=== PATIENT | male | born 1950 | race Caucasian/White ===

== ENCOUNTER 2023-10-23 19:57 | Inpatient (IN) | payer OTHER, SELFPAY ==
[2023-10-23] VITALS (13 sets, daily range): BP systolic 69–144; BP diastolic 22–82; PULSE 45–87; RESP 11–16; TEMP 36.5–36.7; O2SAT 93–98; BMI 33.4
--- NOTE | 2023-10-23 20:24 | ED.GENADULT ---
HPI - General Adult General Chief complaint: General Medical Stated complaint: PAIN ALL OVER WANTS TO BE TREATED FOR PAIN PER EMS Time Seen by Provider: 10/23/23 21:37 Source: patient Mode of arrival: EMS Limitations: no limitations History of Present Illness ED Provider: wilfredo HONG narrative: Patient is 72 years old with history of hypertension diabetes, IBS complaining of whole body ache for last 10 days having different joint pains was seen and admitted at [facility] for 5 days discharge went again to [facility] for same prescribed morphine tablets and discharge comes here as he was feeling dizzy and still having the pain feel more dizzy on standing up blood pressure on arrival was 69/39 with pulse rate of 50 patient denied any chest pain patient took her use blood pressure medication earlier today patient had detailed workup done at the other hospital no rash patient was given Dilaudid tramadol gabapentin in the hospital patient had JESUS when admitted to [facility] on 10/14 with creatinine of 3.93 when discharged on 10/18 creatinine was 1.2 Related Data Home Medications ?Medication ?Instructions ?Recorded ?Confirmed acetaminophen 500 mg tablet 1,000 mg PO Q6H PRN Pain 10/24/23 10/24/23 morphine 15 mg immediate release 15 mg PO Q6-8H PRN Pain 10/24/23 10/24/23 tablet tramadol 50 mg tablet 50 mg PO Q8H PRN Moderate Pain 10/24/23 10/24/23 (Scale Score 5-6) Allergies Allergy/AdvReac Type Severity Reaction Status Date / Time No Known Allergies Allergy Verified 10/23/23 20:27 Review of Systems Review of Systems: Yes all other systems are reviewed and are negative PMF Past Medical History Medical History Chronic diastolic heart failure PTSD (post-traumatic stress disorder) Coronary artery disease Diabetes mellitus Hypertension Irritable bowel syndrome Social History Social History Household Members: None Housing: Apartment Do you presently have visiting nurse or other home services: Yes ([facility] weekly) Patient Tobacco Use Status: Former Tobacco user Tobacco use type: Cigarette Physical Exam ED Vital Signs: Vital Signs - 24 hr 10/23/23 20:21 10/23/23 21:01 10/23/23 21:06 Temperature 98.1 F Pulse Rate 50 48 L Respiratory Rate 16 12 Blood Pressure 69/39 L 94/41 L 100/46 L Pulse Oximetry 94 96 Oxygen Delivery Method Room Air Room Air 10/23/23 21:08 10/23/23 21:23 10/23/23 21:29 Temperature 97.9 F Pulse Rate Respiratory Rate Blood Pressure 84/62 L 96/53 L Pulse Oximetry Oxygen Delivery Method 10/23/23 21:37 10/23/23 21:38 10/23/23 22:21 Temperature Pulse Rate 48 L 71 Respiratory Rate Blood Pressure 89/43 L 78/22 L 95/38 L Pulse Oximetry Oxygen Delivery Method 10/23/23 22:37 10/23/23 22:55 10/23/23 23:14 Temperature 97.7 F Pulse Rate 45 L 49 L Respiratory Rate 11 L 13 Blood Pressure 93/46 L 99/48 L 113/47 L Pulse Oximetry 93 96 Oxygen Delivery Method Room Air Room Air 10/24/23 00:08 Temperature Pulse Rate 48 L Respiratory Rate 12 Blood Pressure 113/48 L Pulse Oximetry 100 Oxygen Delivery Method Room Air BMI result Body Mass Index 33.4 Appearance: Alert. Oriented X3. No acute distress. Eyes: No pallor ENT: Pharynx normal. Oral Mucosa moist Neck: Normal inspection. Neck supple. CVS: Sinus bradycardia Pulses normal. Respiratory: No respiratory distress. Equal air entry bilateral, no wheezing/rales/rhonchi Abdomen: Soft and nontender. Bowel sounds are present, no mass palpable, no CVA tenderness Skin: Skin warm and dry. Normal skin color. Normal skin turgor. Extremities: No lower extremity edema. No calf tenderness no joint swelling Neuro: Oriented X 3. No motor deficit. No sensory deficit.No cerebellar signs , cranial nerves II-XII intact Course Course Course Narrative: This is an RME done by JOVANI Fraga: Additional HPI, ROS, PE not included below will be deferred to primary provider. 73 yo male with pmh osteoporosis presenting with chronic pain to back, hips, shoulders. Was recently seen at [facility] and discharged with no new findings, returns with continued pain. Reports lutz helped him. They gave him dilauded, gabapentin, morphine and other pain meds. Appearance: Alert.? Oriented X3.? No acute cardiopulmonary distress distress.? Head: Normocephalic, atraumatic, no step-offs or deformities Neck: Normal inspection.? Neck supple.? CVS: Pulses normal.? Respiratory: No respiratory distress.? Abdomen: Soft and nontender.? Skin: ? Normal skin color. Extremities: global weakness Back: No midline tenderness, no C-spine tenderness, full range of motion, No CVA tenderness bilaterally Neuro: Oriented X 3.? No motor deficit.? No sensory deficit. Medications Administered Generic Name Dose Route Start Last Admin Trade Name Freq PRN Reason Stop Dose Admin Hydromorphone HCl 1 mg 10/24/23 05:31 10/24/23 05:57 Hydromorphone Hcl 2 Mg Tablet PO 1 mg Q6H PRN Administration Pain, Severe (Pain Scale 7-10) Discontinued Medications Generic Name Dose Route Start Last Admin Trade Name Freq PRN Reason Stop Dose Admin Sodium Chloride 1,000 mls @ 999 mls/hr 10/23/23 21:37 10/23/23 22:55 Ns IV 10/23/23 22:37 Infused .Q1H1M ONE Infusion Sodium Chloride 1,000 mls @ 999 mls/hr 10/23/23 22:09 10/23/23 23:55 Ns IV 10/23/23 23:09 Infused .Q1H1M ONE Infusion Sodium Zirconium Cyclosilicate 10 gm 10/24/23 02:01 10/24/23 02:53 Sodium Zirconium Cyclosilicate 10 Gm Powd.Pack PO 10/24/23 02:02 10 gm ONCE ONE Administration Medical Decision Making Medical Decision Making [facility] Narrative: Patient with prerenal azotemia with elevated creatinine level admitted [facility] on 10/14 for diarrhea with JESUS comes here with feeling weak with body pain on arrival patient's creatinine was 2.83. Patient says that he does not have any diarrhea anymore and taking enough fluids patient was hypotensive on arrival took his antihypertensive medications furosemide 40 mg daily Lab Data [facility] Lab Attestation statement: I reviewed the patient's lab results. 10/23/23 20:53 10/23/23 20:47 Labs: Lab Results 10/23/23 10/23/23 10/23/23 Range/Units 20:36 20:47 20:52 WBC (4.8-10.8) X10*3/uL RBC (4.60-5.80) X10*6/uL Hgb (14.0-18.0) g/dl Hct (42.0-52.0) % MCV (80.0-98.0) fL MCH (27.0-33.0) pg MCHC (31.0-36.0) g/dl RDW (11.0-16.0) % Plt Count (160-400) X10*3/uL MPV (9.4-12.4) fL Immature Gran % (Auto) (0.0-0.4) % Neut % (Auto) (45-73) % Lymph % (Auto) (20-40) % [place] % (Auto) (2-11) % Eos % (Auto) (0-4) % Baso % (Auto) (0-2) % Lymph # (Auto) (1.2-4.9) X10*3/uL [place] # (Auto) (0.1-1.2) X10*3/uL Eos # (Auto) (0.0-0.4) X10*3/uL Baso # (Auto) (0.0-0.2) X10*3/uL Abs Immat Gran (auto) (0.00-0.03) X10*3/uL Absolute Neuts (auto) (2.0-8.3) x10*3/uL Absolute Nucleated RBC (0.0-0.012) X10*3/uL Nucleated RBC % (auto) (0.0-0.2) /100WBC ESR (0-15) MM/HR Hold Purple Top SEE NOTE PT (11.1-13.3) SEC INR (0.9-1.1) Sodium 137 (135-145) mmol/L Potassium 5.6 H (3.3-5.1) mmol/L Chloride 102 (96-108) mmol/L Carbon Dioxide 26 (22-29) mmol/L Anion Gap 15 (12-20) BUN 31 H (9-16) mg/dL Creatinine 2.83 H (0.5-1.4) mg/dL Estim Creat Clear Calc 26.6 Estimated GFR 22 POC Glucose 135 H (60-115) mg/dL Random Glucose 136 H (60-115) mg/dL Lactic Acid 1.9 (0.5-2.0) mmol/L Calcium 9.6 (8.4-10.2) mg/dL Total Bilirubin 0.3 (0.0-1.0) mg/dL AST 14 (5-37) U/L ALT 11 (0-40) U/L Alkaline Phosphatase 60 (39-117) U/L Troponin I High Sens (<3.5-35.0) ng/L C-Reactive Protein < 0.10 (< or = 0.50) mg/dL Total Protein 6.2 L (6.5-8.0) g/dL Albumin 4.1 (3.5-5.0) g/dL TSH (0.32-4.0) uIU/mL Free T4 (0.71-1.85) ng/dL Urine Color Urine Appearance Urine pH (5.0-9.0) Ur Specific Coleman (1.005-1.025) Urine Protein (Neg-Trace) mg/dL Urine Glucose (UA) (Negative) mg/dL Urine Ketones (Negative) mg/dL Urine Blood (Negative) Urine Nitrite (Negative) Ur Leukocyte Esterase (Negative) 10/23/23 10/23/23 10/24/23 Range/Units 20:53 20:54 01:40 WBC 8.8 (4.8-10.8) X10*3/uL RBC 3.13 L (4.60-5.80) X10*6/uL Hgb 10.7 L (14.0-18.0) g/dl Hct 29.9 L (42.0-52.0) % MCV 95.5 (80.0-98.0) fL MCH 34.2 H (27.0-33.0) pg MCHC 35.8 (31.0-36.0) g/dl RDW 14.6 (11.0-16.0) % Plt Count 122 L (160-400) X10*3/uL MPV 10.8 (9.4-12.4) fL Immature Gran % (Auto) 1.1 H (0.0-0.4) % Neut % (Auto) 45.4 (45-73) % Lymph % (Auto) 36.6 (20-40) % [place] % (Auto) 8.6 (2-11) % Eos % (Auto) 7.2 H (0-4) % Baso % (Auto) 1.1 (0-2) % Lymph # (Auto) 3.2 (1.2-4.9) X10*3/uL [place] # (Auto) 0.8 (0.1-1.2) X10*3/uL Eos # (Auto) 0.6 H (0.0-0.4) X10*3/uL Baso # (Auto) 0.1 (0.0-0.2) X10*3/uL Abs Immat Gran (auto) 0.10 H (0.00-0.03) X10*3/uL Absolute Neuts (auto) 4.0 (2.0-8.3) x10*3/uL Absolute Nucleated RBC 0.000 (0.0-0.012) X10*3/uL Nucleated RBC % (auto) 0.0 (0.0-0.2) /100WBC ESR 6 (0-15) MM/HR Hold Purple Top PT 11.5 (11.1-13.3) SEC INR 0.9 (0.9-1.1) Sodium (135-145) mmol/L Potassium (3.3-5.1) mmol/L Chloride (96-108) mmol/L Carbon Dioxide (22-29) mmol/L Anion Gap (12-20) BUN (9-16) mg/dL Creatinine (0.5-1.4) mg/dL Estim Creat Clear Calc Estimated GFR POC Glucose (60-115) mg/dL Random Glucose (60-115) mg/dL Lactic Acid (0.5-2.0) mmol/L Calcium (8.4-10.2) mg/dL Total Bilirubin (0.0-1.0) mg/dL AST (5-37) U/L ALT (0-40) U/L Alkaline Phosphatase (39-117) U/L Troponin I High Sens 23.2 (<3.5-35.0) ng/L C-Reactive Protein (< or = 0.50) mg/dL Total Protein (6.5-8.0) g/dL Albumin (3.5-5.0) g/dL TSH 8.87 H (0.32-4.0) uIU/mL Free T4 0.70 L (0.71-1.85) ng/dL Urine Color Yellow Urine Appearance Clear Urine pH 5.5 (5.0-9.0) Ur Specific Coleman 1.010 (1.005-1.025) Urine Protein Negative (Neg-Trace) mg/dL Urine Glucose (UA) Negative (Negative) mg/dL Urine Ketones Negative (Negative) mg/dL Urine Blood Negative (Negative) Urine Nitrite Negative (Negative) Ur Leukocyte Esterase Negative (Negative) Critical Care Time Critical Care Time Critical Care Time: Yes Total Critical Care Time: 65 Attestation: The patient was critically ill with a high probability of imminent or life threatening deterioration. I spent greater than 70 ???minutes of discontinuous time evaluating the patient,delivering critical care at the bedside, discussing and evaluating pertinent data with consultants. Critical care time does not include time spent performing separately billable procedures or teaching. Total time spent performing critical care was 65???minutes. Discharge Plan Discharge Clinical Impression: Pre-syncope, Acute kidney injury Patient Disposition: Admitted As Inpatient Interventions: Admission Worksheet (ED) Last Done: 10/24/23 03:26 Discharge Date/Time: 10/24/23 03:30
--- NOTE | 2023-10-23 20:31 | ECG_ITS ---
Test Reason : HYPERTENSIVE Blood Pressure : / mmHG Vent. Rate : 048 BPM Atrial Rate : 048 BPM P-R Int : 160 ms QRS Dur : 096 ms QT Int : 394 ms P-R-T Axes : 093 029 140 degrees QTc Int : [address] & T wave abnormality, consider lateral ischemia Abnormal ECG No previous ECGs available Referred By: Earline Fraga Electronically Signed By:GORGE NOWAK
[2023-10-23 20:39] LABS: Glucose, Whole Blood 135 mg/dL (60-115)
[2023-10-23 21:01] LABS: MANUAL DIFF FLAG NO
[2023-10-23 21:03] LABS: Basophils Absolute Auto 0.1 X10*3/uL (0.0-0.2); Basophils Percent Auto 1.1 % (0-2); Eosinophils Absolute Auto 0.6 X10*3/uL (0.0-0.4); Eosinophils Percent Auto 7.2 % (0-4); Hematocrit 29.9 % (42.0-52.0); Hemoglobin 10.7 g/dl (14.0-18.0); Imm Gran Pct Auto 1.1 % (0.0-0.4); Lymphocytes Absolute Auto 3.2 X10*3/uL (1.2-4.9); Lymphocytes Percent Auto 36.6 % (20-40); Mean Corpuscular HGB Conc 35.8 g/dl (31.0-36.0); Mean Corpuscular Hemoglobin 34.2 pg (27.0-33.0); Mean Corpuscular Volume 95.5 fL (80.0-98.0); Mean Platelet Volume 10.8 fL (9.4-12.4); Monocytes Absolute Auto 0.8 X10*3/uL (0.1-1.2); Monocytes Percent Auto 8.6 % (2-11); Neutrophils Percent Auto 45.4 % (45-73); Platelet Count 122 X10*3/uL (160-400); Red Blood Count 3.13 X10*6/uL (4.60-5.80); Red Cell Distribution Width 14.6 % (11.0-16.0); White Blood Count 8.8 X10*3/uL (4.8-10.8)
--- NOTE | 2023-10-23 21:09 | PC.NURSE ---
pt is axox4 brought to ed19 from for low bp read. pt denies cp/sob/n/v/d/dizziness/DANIELS/blurry vision. pt is sinus shilpi on monitor at 48 bpm. ekg obtained. multiple attempts for iv/lab; 20G iv established to R. hands. labs drawn and sent to lab, awaiting results at this time. bp 100/46. MD aware. neuros intact. no facial droop/focal deficits noted. call amaya placed within reach pt watching tv at this time. pt reports he is here as he has 10/10 pain all over his body and joints. was seen at [facility] and given po morphine, states he took one today along with tylenol and tramadol without relief.
[2023-10-23 21:18] LABS: INTERNATIONAL NORM RATIO 0.9 (0.9-1.1); Prothrombin Time 11.5 SEC (11.1-13.3)
[2023-10-23 21:22] LABS: Troponin-I High Sensitivity 23.2 ng/L (<3.5-35.0)
[2023-10-23 21:24] LABS: Lactic Acid 1.9 mmol/L (0.5-2.0)
[2023-10-23 21:24] LABS: Anion Gap 15 (12-20)
[2023-10-23 21:29] LABS: Alanine Aminotransferase 11 U/L (0-40); Albumin Level 4.1 g/dL (3.5-5.0); Alkaline Phosphatase 60 U/L (39-117); Aspartate Amino Transferase 14 U/L (5-37); Bilirubin Total 0.3 mg/dL (0.0-1.0); Blood Urea Nitrogen 31 mg/dL (9-16); Calcium 9.6 mg/dL (8.4-10.2); Carbon Dioxide 26 mmol/L (22-29); Chloride 102 mmol/L (96-108); Creatinine Clr Calc Pharmacy 26.6; Estimated Glomerular Filt Rate 22; Glucose Random 136 mg/dL (60-115); Potassium 5.6 mmol/L (3.3-5.1); Sodium 137 mmol/L (135-145); Total Protein 6.2 g/dL (6.5-8.0)
--- NOTE | 2023-10-23 21:30 | PC.NURSE ---
pt is axox4 speaking full clear sentences. pct attempt to obtain orthostatic vitals and pt became dizzy, +ortho from supine to sitting, pt unable to stand d/t sx. pt helped back into stretcher and placed in trendelenberg position. MD Dr. Ramires made aware. ivf hung on pressure bag. bp improved to 105/46. pt appears drowsy however following commands appropriately. pt stated my bed time is around [id number] thats why im sleepy. at bedside.
[2023-10-23] MEDS: 0.9 % Sodium Chloride 1,000 ML 999 ML IV ×2 (21:35→22:19)
[2023-10-23 21:36] LABS: TSH reflex Free T4 8.87 uIU/mL (0.32-4.0)
--- NOTE | 2023-10-23 22:19 | PC.NURSE ---
2nd ivf bag hung per mar. otherwise no changes to previous assessment by this RN.
[2023-10-23 23:17] LABS: C Reactive Protein < 0.10 mg/dL (< or = 0.50)
[2023-10-23 23:45] LABS: Erythrocyte Sedimentation Rate 6 MM/HR (0-15)
[2023-10-24] VITALS (8 sets, daily range): BP systolic 113–184; BP diastolic 44–74; PULSE 48–63; RESP 12–20; TEMP 36.1–36.4; O2SAT 95–100; BMI 37.3
--- NOTE | 2023-10-24 00:18 | MHC.EDTECH ---
This tech helped Pt stand while trying to use the urinal and Pt states he cannot go at this time even though he feels the urge. RN aware. Pt requesting food and water. Pt offered a turkey or sunbutter sandwich and he declined. Declined something to drink as well. Call amaya within reach.
--- NOTE | 2023-10-24 01:05 | PC.NURSE ---
pt previously attempted to urinate at bedside with urinal and unable to. pt stated he feels the urge however cannot pee. bladder scan showed 596 mL urine. pt refused any catherization and stated he will reattMD rich aware and in agreement. at this time this RN attending to another pt in the [place] and pt started screaming you guys wanted me to pee and nicole peed so why cant you take this fucking urine away. pt reassured and attempted to redirect however pt continued to yell asking for the urine to be taken out of room and bedside table to be cleared of food pt was given per request.
[2023-10-24 01:45] LABS: Appearance Urine Clear; Color Urine Yellow; Glucose Urine UA Negative (Negative); Leukocyte Esterase Urine Negative (Negative); Nitrite Urine Negative (Negative); PH 5.5 (5.0-9.0); Urine Blood Negative (Negative); Urine Ketones Negative (Negative); Urine Protein Negative (Neg-Trace)
--- NOTE | 2023-10-24 01:56 | P.HPHOSP_ITS ---
History of Present Illness Date of Service: 10/24/23 Chief Complaint: Dizziness This is a 73-year-old male with pertinent history of insulin-dependent diabetes mellitus, congestive heart failure with preserved ejection fraction, coronary artery disease, hypertension, mood disorder, BPH who presents to the emergency department for evaluation of generalized body ache and dizziness. Patient was recently admitted at [facility] for JESUS and discharged on 10/18 with a creatinine of 1.2 JESUS was due to chronic diarrhea in the setting of IBS. Patient states that since being discharged he continued to have loose stools on and off which stopped 1 day prior to presentation. He has been having poor p.o. intake. Also complains of generalized body ache with sore neck, shoulders, arms, feet and knees. Patient states on the day of presentation he felt dizzy when he stood up and felt like he was going to pass out. No fever, chills, chest discomfort, palpitations, shortness of breath, abdominal pain, changes in urinary or bowel habits. In the the emergency department, creatinine found to be elevated. Patient initially presented with blood pressure 69/39 which improved with IV fluids. Review of Systems 2 Constitutional: Constitutional: Reports fatigue, Reports malaise, Reports poor appetite and Reports weakness ENT: Reports dizziness Cardiovascular: Cardiovascular: Reports no additional cardiovascular complaints Respiratory: Respiratory: Reports no additional respiratory complaints Gastrointestinal: Gastrointestinal: Reports no additional gastrointestinal complaints Genitourinary: Genitourinary: Reports no additional male genitourinary complaints Neurologic: Reports dizziness and Reports weakness Endocrine: Endocrine: Reports fatigue [facility] Medical History Chronic diastolic heart failure PTSD (post-traumatic stress disorder) Coronary artery disease Diabetes mellitus Hypertension Irritable bowel syndrome Pertinent family history: No family history of early CAD Social History Smoked in Last 30 Days: No Use of substances other than those prescribed or required for medical reasons: No Advance Directives: No Advance Directives Information Provided: No Do you have a plan to hurt others: No Plan Meds Allergies Allergy/AdvReac Type Severity Reaction Status Date / Time No Known Allergies Allergy Verified 10/23/23 20:27 Active Medications: Current Medications Acetaminophen (Acetaminophen 325 Mg Tablet) 650 mg PO Q6H PRN PRN Reason: Pain, Mild (Pain Scale 1-3), fever or headache Melatonin (Melatonin 3 Mg Tablet) 6 mg PO BEDTIME PRN PRN Reason: Insomnia Sodium Chloride (0.9 % Sodium Chloride Flush 3 Ml Syringe) 3 ml IVFLUSH QSHIFT JACQUELIN Physical Exam 2 Vital Signs and Narrative: Vital Signs: Last Vital Signs Temp 97.7 F 10/23/23 23:14 Pulse 48 L 10/24/23 00:08 Resp 12 10/24/23 00:08 BP 113/48 L 10/24/23 00:08 Pulse Ox 100 10/24/23 00:08 O2 Del Method Room Air 10/24/23 00:08 BMI result Body Mass Index 33.4 Middle-aged male lying in bed in no distress Neck supple, no JVD Sinus bradycardia, S1-S2 heard Regular breath sounds bilaterally, no wheezing or crackles appreciated Abdomen soft nontender, no guarding, no rigidity Patient is awake, alert and oriented to self, place, time and person ; no focal motor deficit Psych: Normal mood No pedal edema Results Labs 10/23/23 20:53 10/23/23 20:47 Labs: Laboratory Results - last 24 hr 10/23/23 10/23/23 10/23/23 20:36 20:47 20:52 MCV MCH MCHC RDW Plt Count MPV Immature Gran % (Auto) Neut % (Auto) Lymph % (Auto) Grand % (Auto) Eos % (Auto) Baso % (Auto) Lymph # (Auto) Grand # (Auto) Eos # (Auto) Baso # (Auto) Abs Immat Gran (auto) Absolute Neuts (auto) Absolute Nucleated RBC Nucleated RBC % (auto) ESR Hold Purple Top SEE NOTE PT INR Anion Gap 15 Estim Creat Clear Calc 26.6 Estimated GFR 22 POC Glucose 135 H Random Glucose 136 H Lactic Acid 1.9 Calcium 9.6 Total Bilirubin 0.3 AST 14 ALT 11 Alkaline Phosphatase 60 Troponin I High Sens C-Reactive Protein < 0.10 Total Protein 6.2 L Albumin 4.1 TSH Free T4 Urine Color Urine Appearance Urine pH Ur Specific Daphne Urine Protein Urine Glucose (UA) Urine Ketones Urine Blood Urine Nitrite Ur Leukocyte Esterase 10/23/23 10/23/23 10/24/23 20:53 20:54 01:40 MCV 95.5 MCH 34.2 H MCHC 35.8 RDW 14.6 Plt Count 122 L MPV 10.8 Immature Gran % (Auto) 1.1 H Neut % (Auto) 45.4 Lymph % (Auto) 36.6 Grand % (Auto) 8.6 Eos % (Auto) 7.2 H Baso % (Auto) 1.1 Lymph # (Auto) 3.2 Grand # (Auto) 0.8 Eos # (Auto) 0.6 H Baso # (Auto) 0.1 Abs Immat Gran (auto) 0.10 H Absolute Neuts (auto) 4.0 Absolute Nucleated RBC 0.000 Nucleated RBC % (auto) 0.0 ESR 6 Hold Purple Top PT 11.5 INR 0.9 Anion Gap Estim Creat Clear Calc Estimated GFR POC Glucose Random Glucose Lactic Acid Calcium Total Bilirubin AST ALT Alkaline Phosphatase Troponin I High Sens 23.2 C-Reactive Protein Total Protein Albumin TSH 8.87 H Free T4 0.70 L Urine Color Yellow Urine Appearance Clear Urine pH 5.5 Ur Specific Daphne 1.010 Urine Protein Negative Urine Glucose (UA) Negative Urine Ketones Negative Urine Blood Negative Urine Nitrite Negative Ur Leukocyte Esterase Negative Assessment and Plan (1) JESUS (acute kidney injury): Status: Acute (2) Pre-syncope: Status: Acute Plan This is a 73-year-old male with pertinent history of insulin-dependent diabetes mellitus, congestive heart failure with preserved ejection fraction, coronary artery disease, hypertension, mood disorder, BPH who presents to the emergency department for evaluation of generalized body ache and dizziness. #. JESUS, prerenal: Monitor creatinine and urine output with crystalloid resuscitation. Patient given 2 L IV normal saline in the ER. Avoid nephrotoxins. #. Hypotension due to intravascular volume depletion. Improved with IV crystalloids #. Orthostatic presyncope in the setting of above #. Hypokalemia in the setting of JESUS: Administered Lokelma. Closely monitor #. Insulin-dependent diabetes mellitus: Initiating Accu-Cheks with sliding scale insulin. Patient states he has not taken his long-acting insulin in 2 weeks #. Congestive heart failure with preserved ejection fraction: Hold Lasix the setting of JESUS #. Hypertension: Hold ARB in the setting of JESUS #. IBS with diarrhea: Leading to recurrent JESUS and hospitalization. Loperamide p.r.n. #. BPH: On Flomax #. Mood disorder: Continue home mood stabilizers #. Generalized weakness due to debility: Consulting Physical therapy to evaluate and treat. Also has generalized body ache. P.o. analgesia p.r.n. #. CAD: On aspirin and high-intensity statin Med rec pending DVT prophylaxis: Lovenox Full code Admit as inpatient and will require two night minimum hospital stay for monitoring of kidney function (as above), which is not possible in a lesser acute setting. Quality Stroke Does the patient have a stroke diagnosis?: No VTE Prior VTE?: No VTE Risk Level:: Medical - moderate - high VTE Device Contraindication: Treatment Not Indicated VTE Drug Contraindication: N/A - Med Ordered
[2023-10-24] MEDS: Sodium Zirconium Cyclosilicate 10 GM POWD.PACK PO (02:53)
--- NOTE | 2023-10-24 03:18 | PC.NURSE ---
this RN enter room to obtain vitals. pt stated I can't sleep in this room, there is too much noise and stuff going on out there. this RN apologized to pt and reassured pt will get a bed assignment to inpatient unit soon however unsure of timing. pt requested warm blanket and provided it to pt. this RN standing at room entrance pt started yelling close the curtain the lights bothering me. stated to patient will close the curtain as this RN mixing medication for patient. pt started yelling im sick of this shit close the fucking curtain and get out. rack carrier to bedside to speak to patient. Quality Improvement Analyst made aware of pt upset about not having a bed assignment. rack carrier provided eye mask to pt. pt calm at this time laying in stretcher watching tv. call amaya within reach.
[2023-10-24] MEDS: HYDROmorphone HCl 2 MG TABLET 1 MG PO ×3 (05:57→19:20)
[2023-10-24 07:44] LABS: MANUAL DIFF FLAG NO
--- NOTE | 2023-10-24 07:46 | PM.EVENT ---
Event Note Date of Service: 10/24/23 Event Note: This is a 73-year-old male with pertinent history of insulin-dependent diabetes mellitus, congestive heart failure with preserved ejection fraction, coronary artery disease, hypertension, mood disorder, BPH who presents to the emergency department for evaluation of generalized body ache and dizziness. Myalgias/joint pain Was discharged from [facility] 10/19/23 treated for similar symptoms had Lyme panel done, all neg normal cpk, crp no fever or leukocytosis will check RPP JESUS, prerenal ? r/t hypovolemia, hypotension Avoid nephrotoxins. continue fluids Hypotension hx of IBS-D but reported no recent diarrhea likely due to intravascular volume depletion. Improved with IV fluids Bradycardia low in the 40's, 50's no HB noted on EKG not on BB monitor on telemetry elevated TSH TSH 8.87, free T4 0.7 symptoms not likely related Orthostatic presyncope in the setting of above Hypokalemia in the setting of JESUS Administered Lokelma. Closely monitor Insulin-dependent diabetes mellitus Initiating Accu-Cheks with sliding scale insulin. Patient states he has not taken his long-acting insulin in 2 weeks Congestive heart failure with preserved ejection fraction Hold Lasix the setting of JESUS Hypertension Hold ARB in the setting of JESUS BPH On Flomax Mood disorder Continue home mood stabilizers Generalized weakness due to debility Consulting Physical therapy to evaluate and treat. Also has generalized body ache. P.o. analgesia p.r.n. CAD On aspirin hold statin due to myalgias DVT prophylaxis: Adrian attending Dr. Rudd Full code continue hospital stay for monitoring of kidney function (as above), which is not possible in a lesser acute set Time Spent With Patient Time: Total time managing care of this patient today ____ minutes.
[2023-10-24 07:58] LABS: Basophils Absolute Auto 0.1 X10*3/uL (0.0-0.2); Basophils Percent Auto 1.2 % (0-2); Eosinophils Absolute Auto 0.5 X10*3/uL (0.0-0.4); Eosinophils Percent Auto 7.1 % (0-4); Hematocrit 31.4 % (42.0-52.0); Hemoglobin 11.1 g/dl (14.0-18.0); Imm Gran Abs Auto 0.09 X10*3/uL (0.00-0.03); Imm Gran Pct Auto 1.3 % (0.0-0.4); Lymphocytes Absolute Auto 2.8 X10*3/uL (1.2-4.9); Lymphocytes Percent Auto 41.7 % (20-40); Mean Corpuscular HGB Conc 35.4 g/dl (31.0-36.0); Mean Corpuscular Hemoglobin 33.9 pg (27.0-33.0); Mean Platelet Volume 10.8 fL (9.4-12.4); Monocytes Absolute Auto 0.7 X10*3/uL (0.1-1.2); Monocytes Percent Auto 9.8 % (2-11); Neutrophils Absolute Auto 2.6 x10*3/uL (2.0-8.3); Neutrophils Percent Auto 38.9 % (45-73); Platelet Count 108 X10*3/uL (160-400); Red Blood Count 3.27 X10*6/uL (4.60-5.80); Red Cell Distribution Width 14.6 % (11.0-16.0); White Blood Count 6.7 X10*3/uL (4.8-10.8)
[2023-10-24 08:05] LABS: Glucose, Whole Blood 127 mg/dL (60-115)
[2023-10-24 08:12] LABS: Anion Gap 12 (12-20); Blood Urea Nitrogen 28 mg/dL (9-16); Calcium 8.9 mg/dL (8.4-10.2); Carbon Dioxide 28 mmol/L (22-29); Chloride 107 mmol/L (96-108); Creatinine Clr Calc Pharmacy 40.6; Estimated Glomerular Filt Rate 34; Glucose Random 130 mg/dL (60-115); Potassium 4.9 mmol/L (3.3-5.1); Sodium 142 mmol/L (135-145)
[2023-10-24] MEDS: Enoxaparin Sodium 40 MG/0.4 ML SYRINGE SUBCUT (08:37)
[2023-10-24] MEDS: 0.9 % Sodium Chloride Flush 3 ML SYRINGE IVFLUSH ×2 (08:38→21:20)
[2023-10-24] MEDS: traMADoL HCL 50 MG TABLET PO ×3 (08:39→21:18)
--- NOTE | 2023-10-24 10:12 | PHA.MEDREC ---
Addendum entered by Raya Lambert 10/24/23 12:57: Patient stated he has not had his insulin in 2 weeks and does not know why his pharmacy has not sent it to him (gets it delivered). Original Note: Pharmacy Consult ? Medication Reconciliation Pharmacy has completed the medication reconciliation. [facility] with [facility]. He confirmed Lantus 60 units qam. [facility] Dival[facility]ex [facility] 500mg - 2 tablets at bedtime however patient states he takes a 500 and 250 at bedtime. Put on med rec what patient says he takes, hospitalist is aware. Confirmed the medications he got from previous hospital with [facility].
--- NOTE | 2023-10-24 11:09 | MHC.CM.PN ---
IMM 10/24/23 Pt. lives alone, has a weekly nurse visit, provided by DC to set up his meds, because he takes 26 meds. He said [facility], and that his apt. is badly in need of it. HCP is Tonya Pruett, she lives in [place]. PCP is: Oliver Wilson, and [facility] doctor is: Dr. Hernandez. For DME he has [facility] w/c, [facility]. He does not have transportation, has been in touch with [facility] to get rides for medical appts. DCP: TBD, will have PT eval (he declined it today). CM to follow and assist with DC planning.
[2023-10-24 12:14] LABS: Glucose, Whole Blood 165 mg/dL (60-115)
[2023-10-24] MEDS: Insulin Lispro 100 UNIT/ML 3 ML VIAL SUBCUT ×2 (12:24→21:22)
[2023-10-24] MEDS: Acetaminophen 325 MG TABLET 650 MG PO (13:58)
[2023-10-24] MEDS: 0.9 % Sodium Chloride 1,000 ML 100 ML IVCONT (14:52)
[2023-10-24 16:39] LABS: Glucose, Whole Blood 144 mg/dL (60-115)
[2023-10-24] MEDS: Melatonin 3 MG TABLET 6 MG PO (21:18)
[2023-10-24 21:32] LABS: Glucose, Whole Blood 169 mg/dL (60-115)
[2023-10-25] VITALS: BP 150/70; PULSE 68
[2023-10-25] MEDS: HYDROmorphone HCl 2 MG TABLET 1 MG PO ×4 (01:36→19:57)
[2023-10-25] MEDS: 0.9 % Sodium Chloride Flush 3 ML SYRINGE IVFLUSH ×2 (01:52→15:37)
[2023-10-25] MEDS: Zolpidem Tartrate 5 MG TABLET PO (01:55)
[2023-10-25] MEDS: traMADoL HCL 50 MG TABLET PO ×3 (04:27→16:33)
--- NOTE | 2023-10-25 06:05 | PC.NURSE ---
DR Boothe make aware patient refusing ivf, states he is drinking enough water.
[2023-10-25 06:42] LABS: MANUAL DIFF FLAG NO
[2023-10-25 06:59] LABS: Basophils Absolute Auto 0.1 X10*3/uL (0.0-0.2); Basophils Percent Auto 1.1 % (0-2); Eosinophils Absolute Auto 0.3 X10*3/uL (0.0-0.4); Eosinophils Percent Auto 5.3 % (0-4); Hematocrit 31.6 % (42.0-52.0); Hemoglobin 11.3 g/dl (14.0-18.0); Imm Gran Abs Auto 0.07 X10*3/uL (0.00-0.03); Imm Gran Pct Auto 1.1 % (0.0-0.4); Lymphocytes Absolute Auto 2.4 X10*3/uL (1.2-4.9); Lymphocytes Percent Auto 36.8 % (20-40); Mean Corpuscular HGB Conc 35.8 g/dl (31.0-36.0); Mean Corpuscular Hemoglobin 34.2 pg (27.0-33.0); Mean Corpuscular Volume 95.8 fL (80.0-98.0); Mean Platelet Volume 10.8 fL (9.4-12.4); Monocytes Absolute Auto 0.7 X10*3/uL (0.1-1.2); Monocytes Percent Auto 10.4 % (2-11); Neutrophils Absolute Auto 2.9 x10*3/uL (2.0-8.3); Neutrophils Percent Auto 45.3 % (45-73); Platelet Count 107 X10*3/uL (160-400); Red Cell Distribution Width 14.3 % (11.0-16.0); White Blood Count 6.5 X10*3/uL (4.8-10.8)
[2023-10-25 07:05] LABS: Anion Gap 13 (12-20); Blood Urea Nitrogen 17 mg/dL (9-16); Calcium 9.9 mg/dL (8.4-10.2); Carbon Dioxide 26 mmol/L (22-29); Chloride 107 mmol/L (96-108); Creatinine Clr Calc Pharmacy 58.1; Estimated Glomerular Filt Rate 51; Glucose Random 160 mg/dL (60-115); Sodium 141 mmol/L (135-145)
[2023-10-25 08:00] VITALS: BP 160/77; PULSE 82; RESP 17; TEMP 36.7; O2SAT 95
[2023-10-25] MEDS: ondansetron HCL 4 MG/2 ML VIAL IVPUSH (08:04)
[2023-10-25 08:15] LABS: Glucose, Whole Blood 149 mg/dL (60-115)
--- NOTE | 2023-10-25 09:09 | P.PNIM_ITS ---
Subjective Subjective Date of Service: 10/25/23 Review of Systems Follow up weakness, body pain and hypotension still with body pain,stated feeling confused some nausea Physical Exam 2 Vital Signs: Vital Signs: Last Vital Signs Temp 98.0 F 10/25/23 08:00 Pulse 82 10/25/23 08:00 Resp 17 10/25/23 08:00 BP 160/77 H 10/25/23 08:00 Pulse Ox 95 10/25/23 08:00 O2 Del Method Room Air 10/25/23 08:00 BMI result Body Mass Index 37.3 Appearing in no acute distress lung sounds are clear to auscultation heart regular rate rhythm, clear S1, S2 positive bowel sounds, abdomen is soft, nontender neuro patient is alert x3, no focal deficits Objective Data Active Medications Acetaminophen (Acetaminophen 325 Mg Tablet) 650 mg PO Q6H PRN PRN Reason: Pain, Mild (Pain Scale 1-3), fever or headache Last Admin: 10/24/23 13:58 Dose: 650 mg Documented By: DARRYN Calcium Carbonate (Calcium Carbonate 750 Mg Tab.Chew) 750 mg PO Q4H PRN PRN Reason: Heartburn Divalproex Sodium (Divalproex Sodium Er 250 Mg Tab.Er.24h) 250 mg PO BEDTIME JACQUELIN Divalproex Sodium (Divalproex Sodium Er 500 Mg Tab.Er.24h) 500 mg PO BEDTIME JACQUELIN Enoxaparin Sodium (Enoxaparin Sodium 40 Mg/0.4 Ml Syringe) 40 mg SUBCUT Q24H JACQUELIN Last Admin: 10/24/23 08:37 Dose: 40 mg Documented By: DARRYN Furosemide (Furosemide 40 Mg Tablet) 40 mg PO DAILY JACQUELIN; Protocol Gabapentin (Gabapentin 600 Mg Tablet) 900 mg PO TID [facility] Glucose (Glucose Gel 15 Gm Gel..Gram.) 15 gm PO Q15M PRN; Protocol PRN Reason: per Hypoglycemia Standing Ord. Hydromorphone HCl (Hydromorphone Hcl 2 Mg Tablet) 1 mg PO Q6H PRN PRN Reason: Pain, Severe (Pain Scale 7-10) Last Admin: 10/25/23 07:55 Dose: 1 mg Documented By: MARY Dextrose (D10) 250 mls @ 750 mls/hr IV Q15M PRN; Protocol PRN Reason: per Hypoglycemia Standing Ord. Sodium Chloride (Ns) 1,000 mls @ 100 mls/hr IVCONT .Q10H [facility] Last Admin: 10/25/23 01:53 Dose: Not Given Documented By: KENN Non-Admin Reason: Patient Refused Insulin Human Lispro (Insulin Lispro 100 Unit/Ml 3 Ml Vial) 0 unit SUBCUT QIDACHS [facility]; Protocol Last Admin: 10/24/23 21:22 Dose: 2 unit Documented By: KENN Comments: bs 169 Isosorbide Mononitrate (Isosorbide Mononitrate 30 Mg Tab.Er.24h) 30 mg PO DAILY [facility]; Protocol Loperamide HCl (Loperamide Hcl 2 Mg Capsule) 2 mg PO Q4H PRN PRN Reason: Diarrhea Magnesium Hydroxide (Milk Of Magnesia 30 Ml Oral.Susp) 30 ml PO DAILY PRN PRN Reason: Constipation Melatonin (Melatonin 3 Mg Tablet) 6 mg PO BEDTIME PRN PRN Reason: Insomnia Last Admin: 10/24/23 21:18 Dose: 6 mg Documented By: KENN Metoprolol Tartrate (Metoprolol Tartrate 25 Mg Tablet) 25 mg PO BID [facility]; Protocol Ondansetron HCl (Ondansetron Hcl 4 Mg/2 Ml Vial) 4 mg IVPUSH Q8H PRN PRN Reason: Nausea and Vomiting Last Admin: 10/25/23 08:04 Dose: 4 mg Documented By: MARY Oxybutynin Chloride (Oxybutynin Chloride 5 Mg Tablet) 5 mg PO BEDTIME [facility] Quetiapine Fumarate (Quetiapine Fumarate 100 Mg Tablet) 100 mg PO BEDTIME [facility] Sodium Chloride (0.9 % Sodium Chloride Flush 3 Ml Syringe) [facility] Last Admin: 10/25/23 01:52 Dose: 3 ml Documented By: KENN Tamsulosin HCl (Tamsulosin Hcl 0.4 Mg Capsule) 0.4 mg PO DAILY [facility] Tizanidine HCl (Tizanidine Hcl 4 Mg Tablet) 2 mg PO TID PRN PRN Reason: muscle spasms Tramadol HCl (Tramadol Hcl 50 Mg Tablet) 50 mg PO Q6H PRN PRN Reason: Pain, Moderate(Pain Scale 4-6) Last Admin: 10/25/23 04:27 Dose: 50 mg Documented By: KENN Tramadol HCl (Tramadol Hcl 50 Mg Tablet) 50 mg PO Q8H PRN PRN Reason: Moderate Pain (Scale Score 5-6) Zolpidem Tartrate (Zolpidem Tartrate 5 Mg Tablet) 5 mg PO BEDTIME PRN PRN Reason: Insomnia Last Admin: 10/25/23 01:55 Dose: 5 mg Documented By: KENN Labs 10/25/23 06:31 10/25/23 06:31 Labs: Laboratory Results - last 24 hr 10/24/23 10/24/23 10/24/23 07:15 12:10 16:33 MCV MCH MCHC RDW Plt Count MPV Immature Gran % (Auto) Neut % (Auto) Lymph % (Auto) [place] % (Auto) Eos % (Auto) Baso % (Auto) Lymph # (Auto) [place] # (Auto) Eos # (Auto) Baso # (Auto) Abs Immat Gran (auto) Absolute Neuts (auto) Absolute Nucleated RBC Nucleated RBC % (auto) Anion Gap Estim Creat Clear Calc Estimated GFR POC Glucose 165 H 144 H Random Glucose Calcium Total Creatine Kinase 162 10/24/23 10/25/23 10/25/23 21:17 06:31 08:10 MCV 95.8 MCH 34.2 H MCHC 35.8 RDW 14.3 Plt Count 107 L MPV 10.8 Immature Gran % (Auto) 1.1 H Neut % (Auto) 45.3 Lymph % (Auto) 36.8 [place] % (Auto) 10.4 Eos % (Auto) 5.3 H Baso % (Auto) 1.1 Lymph # (Auto) 2.4 [place] # (Auto) 0.7 Eos # (Auto) 0.3 Baso # (Auto) 0.1 Abs Immat Gran (auto) 0.07 H Absolute Neuts (auto) 2.9 Absolute Nucleated RBC 0.000 Nucleated RBC % (auto) 0.0 Anion Gap 13 Estim Creat Clear Calc 58.1 Estimated GFR 51 POC Glucose 169 H 149 H Random Glucose 160 H Calcium 9.9 D Total Creatine Kinase Microbiology Microbiology Results: Microbiology 10/23/23 20:52 Blood Culture - Preliminary Blood - Venous No growth after 24 hours. 10/23/23 20:46 Blood Culture - Preliminary Blood - Venous No growth after 24 hours. Assessment and Plan (1) JESUS (acute kidney injury): Status: Acute Plan This is a 73-year-old male with pertinent history of insulin-dependent diabetes mellitus, congestive heart failure with preserved ejection fraction, coronary artery disease, hypertension, mood disorder, BPH who presents to the emergency department for evaluation of generalized body ache and dizziness. Myalgias/joint pain Was [place] [facility] [place] treated for similar symptoms had Lyme panel done, all neg normal cpk, crp no fever or leukocytosis RPP negative JESUS, prerenal, creat trending down ? r/t hypovolemia, hypotension Avoid nephrotoxins. continue fluids Hypotension with hx of hypertension. Resolved hx of IBS-D but reported no recent diarrhea likely due to intravascular volume depletion and medications valsartan stopped Improved with IV fluids Bradycardia. improving low in the 40's, 50's initially no HB noted on EKG metoprolol held intitially and restarted at lower dose elevated TSH TSH 8.87, free T4 0.7 symptoms not likely related Orthostatic presyncope. Resolved in the setting of above Hypokalemia in the setting of JESUS Administered Lokelma. Closely monitor Insulin-dependent diabetes mellitus Initiating Accu-Cheks with sliding scale insulin. Patient states he has not taken his long-acting insulin in 2 weeks Congestive heart failure with preserved ejection fraction continue lasix BPH On Flomax Mood disorder Continue home mood stabilizers Generalized weakness due to debility Consulting Physical therapy to evaluate and treat. Also has generalized body ache. P.o. analgesia p.r.n. CAD On aspirin hold statin due to myalgias DVT prophylaxis: Lovenox attending Dr. Rudd Full code continue hospital stay for monitoring of kidney function (as above), which is not possible in a lesser acute set Quality Stroke Does the patient have a stroke diagnosis?: No VTE Prior VTE?: No VTE Risk Level:: Medical - moderate - high VTE Device Contraindication: Treatment Not Indicated VTE Drug Contraindication: N/A - Med Ordered
[2023-10-25] MEDS: Enoxaparin Sodium 40 MG/0.4 ML SYRINGE SUBCUT (09:32)
[2023-10-25] MEDS: Gabapentin 600 MG TABLET 900 MG PO ×3 (09:33→20:33)
[2023-10-25] MEDS: Isosorbide Mononitrate 30 MG TAB.ER.24H PO (09:33)
[2023-10-25] MEDS: Metoprolol Tartrate 25 MG TABLET PO ×2 (09:33→20:37)
[2023-10-25] MEDS: Furosemide 40 MG TABLET PO (09:33)
[2023-10-25] MEDS: Tamsulosin HCL 0.4 MG CAPSULE PO (09:33)
[2023-10-25] MEDS: TiZANidine HCL 4 MG TABLET 2 MG PO ×2 (09:36→17:34)
[2023-10-25] MEDS: Acetaminophen 325 MG TABLET 650 MG PO ×2 (09:36→18:31)
[2023-10-25 10:24] LABS: Adenovirus PCR Not Detected (Not Detect.); Bordetella parapertussis PCR Not Detected (Not Detect.); Bordetella pertussis PCR Not Detected (Not Detect.); Chlamydia pneumoniae PCR Not Detected (Not Detect.); Coronavirus 229E PCR Not Detected (Not Detect.); Coronavirus HKU1 PCR Not Detected (Not Detect.); Coronavirus NL63 PCR Not Detected (Not Detect.); Coronavirus OC43 PCR Not Detected (Not Detect.); Human metapneumovirus PCR Not Detected (Not Detect.); Influenza A PCR Not Detected (Not Detect.); Influenza B PCR Not Detected (Not Detect.); Mycoplasma pneumoniae PCR Not Detected (Not Detect.); Parainfluenza 1 PCR Not Detected (Not Detect.); Parainfluenza 2 PCR Not Detected (Not Detect.); Parainfluenza 3 PCR Not Detected (Not Detect.); Parainfluenza 4 PCR Not Detected (Not Detect.); RSV PCR Not Detected (Not Detect.); Rhino/Enterovirus PCR Not Detected (Not Detect.); SARS-CoV-2 PCR Not Detected (Not Detect.)
[2023-10-25] MEDS: Famotidine/PF 20 MG/2 ML VIAL IVPUSH (11:51)
[2023-10-25 11:55] VITALS: BP 132/56; PULSE 65; RESP 18; TEMP 36.4; O2SAT 96
[2023-10-25 12:01] LABS: Glucose, Whole Blood 149 mg/dL (60-115)
[2023-10-25 15:38] VITALS: BP 145/72; PULSE 67; RESP 17; TEMP 36.3; O2SAT 96
[2023-10-25 16:40] LABS: Glucose, Whole Blood 157 mg/dL (60-115)
[2023-10-25] MEDS: Insulin Lispro 100 UNIT/ML 3 ML VIAL SUBCUT ×2 (17:33→20:42)
[2023-10-25] MEDS: Divalproex Sodium ER 500 MG TAB.ER.24H PO (20:33)
[2023-10-25] MEDS: oxyBUTYnin chloride 5 MG TABLET PO (20:33)
[2023-10-25] MEDS: QUEtiapine Fumarate 100 MG TABLET PO (20:34)
[2023-10-25] MEDS: Divalproex Sodium ER 250 MG TAB.ER.24H PO (20:34)
[2023-10-25 20:37] VITALS: BP 163/60; PULSE 68
[2023-10-25 20:49] LABS: Glucose, Whole Blood 158 mg/dL (60-115)
[2023-10-25 20:58] VITALS: BP 163/70; PULSE 59; RESP 20; TEMP 37; O2SAT 92
[2023-10-26] MEDS: traMADoL HCL 50 MG TABLET PO ×2 (03:03→09:02)
--- NOTE | 2023-10-26 04:33 | PC.NURSE ---
Non compliant with care.Forgetful with intermitted confusion observed this shift. Several redirection and orientation given with effect. Fall precaution reinforced. Verbalized understanding.
[2023-10-26] MEDS: Acetaminophen 325 MG TABLET 650 MG PO (06:11)
[2023-10-26 07:22] LABS: Glucose, Whole Blood 182 mg/dL (60-115)
[2023-10-26 07:39] VITALS: BP 156/70; PULSE 69; RESP 18; TEMP 36.8; O2SAT 95
[2023-10-26] MEDS: Gabapentin 600 MG TABLET 900 MG PO (07:55)
[2023-10-26] MEDS: Tamsulosin HCL 0.4 MG CAPSULE PO (07:55)
[2023-10-26] MEDS: HYDROmorphone HCl 2 MG TABLET 1 MG PO ×2 (07:55→13:31)
[2023-10-26] MEDS: Metoprolol Tartrate 25 MG TABLET PO (07:56)
[2023-10-26] MEDS: Insulin Lispro 100 UNIT/ML 3 ML VIAL SUBCUT (07:56)
[2023-10-26] MEDS: Famotidine/PF 20 MG/2 ML VIAL IVPUSH (07:56)
[2023-10-26] MEDS: Furosemide 40 MG TABLET PO (07:56)
[2023-10-26] MEDS: Enoxaparin Sodium 40 MG/0.4 ML SYRINGE SUBCUT (07:56)
[2023-10-26] MEDS: Isosorbide Mononitrate 30 MG TAB.ER.24H PO (07:56)
[2023-10-26] MEDS: 0.9 % Sodium Chloride Flush 3 ML SYRINGE IVFLUSH (08:15)
[2023-10-26 08:41] VITALS: PULSE 83; O2SAT 91
--- NOTE | 2023-10-26 10:44 | MHC.CM.PN ---
CM met with Patient at bedside to discuss dc planning and PT's recommendation for home PT; Brandon has declined home PT, stating he has [facility] RN that visits weekly to assist him with med management and that is all he needs/wants. INTERNAL AUDIT MANAGER/Kerry has been made aware. Patient will dc to home ([address] [place] [facility] [facility]) today at 2PM, via [facility]. Last IMM addressed on 10/24/2023.
--- NOTE | 2023-10-26 11:04 | P.DS_ITS ---
DS: Providers Provider Date of Service: 10/26/23 Date of admission: 10/24/23 01:58 Primary care physician: Unknown Physician DS: Diagnosis Discharge Diagnosis (1) JESUS (acute kidney injury): Status: Acute DS: Summary Hospital Course Hospital Course: This is a 73-year-old male with pertinent history of insulin-dependent diabetes mellitus, congestive heart failure with preserved ejection fraction, coronary artery disease, hypertension, mood disorder, BPH who presents to the emergency department for evaluation of generalized body ache and dizziness. Patient was recently admitted at [facility] for JESUS and discharged on 10/18 with a creatinine of 1.2 JESUS was due to chronic diarrhea in the setting of IBS. Patient states that since being discharged he continued to have loose stools on and off which stopped 1 day prior to presentation. He has been having poor p.o. intake. Also complains of generalized body ache with sore neck, shoulders, arms, feet and knees. Patient states on the day of presentation he felt dizzy when he stood up and felt like he was going to pass out. No fever, chills, chest discomfort, palpitations, shortness of breath, abdominal pain, changes in urinary or bowel habits. In the the emergency department, creatinine found to be elevated. Patient initially presented with blood pressure 69/39 which improved with IV fluids. 73-year-old man treated for hypotension with presyncope. Patient was noted to have systolic blood pressure as low as 60 with bradycardia, heart rate in the 40s and 50s initially. No heart block noted on EKG. His metoprolol was held. His blood pressure did improve with some IV fluids and stopping of his antihypertensive medications. He does have a history of IBS D and was thought initially that this was related to hypovolemia from recent diarrhea but patient reported that he had not had any diarrhea. He was recently treated at [facility] as well for the same symptoms. He also reported some myalgias and joint pain. At [place] he did have a Lyme panel done which was negative. At [facility] he had a normal CPK and CRP with no fever leukocytosis and RPP was negative. Patient's symptoms were likely related to hypotension. His metoprolol was restarted at a lower dose of 25 mg twice daily, his valsartan was also started on lower dose 80 mg daily and his furosemide was restarted at the same home dose. His JESUS resolved with IV fluids and may have been also related to hypotension, poor perfusion. Patient was seen and evaluated by Physical therapy recommended for home PT. Plan is for patient be discharged home, he reported he is already set up with the [place] visiting nurse. Elevated TSH. TSH 8.87, free T4 0.7. Symptoms were not likely related but he should have a repeat TSH in 3 months Orthostatic hypotension likely related to hypotension, low volume possibly. Resolved with IV fluids Hypokalemia in the setting of JESUS. Administered Lokelma and resolved Diabetes mellitus. Continue home medications Congestive heart failure with preserved ejection fraction. Continue Lasix BPH. Continue Flomax Mental health. Continue home with stabilizers Coronary artery disease. Continue aspirin, statin was held due to myalgias but may continue at home Time Attestation Discharge Coordination Time (in mins): 32 Quality: Safe Use of Opioids Does Pt have an Active Cancer Diagnosis on the Problem List?: No Quality: Stroke Does the patient have a stroke diagnosis?: No Physical Exam Vital Signs: Vital Signs: Last Vital Signs Temp 98.3 F 10/26/23 07:39 Pulse 83 10/26/23 08:41 Resp 18 10/26/23 07:39 BP 156/70 H 10/26/23 07:39 Pulse Ox 91 L 10/26/23 08:41 O2 Del Method Room Air 10/26/23 07:39 BMI result Body Mass Index 37.3 Appearing in no acute distress head is normocephalic atraumatic eyes pupils are PERRLA sclera is anicteric mouth throat mucous membranes are intact and moist neck is supple no lymphadenopathy, no JVD noted lung sounds are clear to auscultation heart regular rate rhythm, clear S1, S2 positive bowel sounds, abdomen is soft, nontender neuro patient is alert x3, no focal deficits DS: Data Data Completed and Pending Labs on day of discharge: Laboratory Results - last 24 hr 10/25/23 10/25/23 10/25/23 11:49 16:35 20:38 POC Glucose 149 H 157 H 158 H 10/26/23 07:09 POC Glucose 182 H Preliminary micro results at discharge 10/23/23 20:52 Blood Culture - Preliminary Blood - Venous No growth after 48 hours. 10/23/23 20:46 Blood Culture - Preliminary Blood - Venous No growth after 48 hours. Discharge Plan Discharge Anticipated Discharge Date/Time: 10/26/23 10:49 Patient Disposition: Home, Self-Care Discharge Diagnosis: Myalgia, joint pain JESUS Hypotension Bradycardia [facility]errals: [facility] for med management [Other] - 1 Week Discharge Medications: New valsartan 80 mg Tablet 80 mg PO DAILY Qty: 90 0RF Protocol: Hold for SBP< HOLD for SBP < : 90 metoprolol tartrate 25 mg Tablet 25 mg PO BID Qty: 60 0RF Protocol: Hold for SBP/HR < HOLD for SBP < : 90 HOLD for HR < : 60 Continued tramadol 50 mg Tablet 50 mg PO Q8H PRN (Reason: Moderate Pain (Scale Score 5-6)) acetaminophen 500 mg Tablet 1,000 mg PO Q6H PRN (Reason: Pain) morphine 15 mg Tablet 15 mg PO Q6-8H PRN (Reason: Pain) furosemide 40 mg Tablet 40 mg PO DAILY metformin 500 mg Tablet 500 mg PO BID atorvastatin 80 mg Tablet 40 mg PO DAILY gabapentin 600 mg Tablet 900 mg PO TID Rx Instructions: 1 and 1/2 tablets TID tizanidine 2 mg Tablet 2 mg PO TID PRN (Reason: muscle spasms) isosorbide mononitrate 30 mg Tablet Extended Release 24 Hr 30 mg PO DAILY quetiapine 100 mg Tablet 100 mg PO BEDTIME tamsulosin 0.4 mg Capsule 0.4 mg PO DAILY oxybutynin chloride 5 mg Tablet 5 mg PO BEDTIME naproxen 500 mg Tablet 500 mg PO BID PRN (Reason: Pain) insulin glargine [Lantus Solostar U-100 Insulin] 100 unit/mL (3 mL) Insulin Pen 60 unit SUBCUT QAM melatonin 3 mg Capsule 3 mg PO BEDTIME divalproex 500 mg Tablet Extended Release 24 Hr 500 mg PO BEDTIME divalproex 250 mg Tablet Extended Release 24 Hr 250 mg PO BEDTIME Discontinued metoprolol tartrate 50 mg Tablet 50 mg PO BID valsartan 160 mg Tablet 160 mg PO DAILY Discharge Orders: Discharge Order (Routine); Ordered 10/26/23 Ordered By: Kerry Sanders Diet: Advance to usual diet Activity on Discharge: As tolerated Stand Alone Forms: Patient Portal Discharge page Print Language: Wolof Care Plan Goals: Your medications for your blood pressure and heart rate have changed. Metoprolol has been decreased to 25 mg twice daily, valsartan has been decreased to 80 mg daily Monitor blood pressures daily at home Health Concerns: Myalgia, joint pain JESUS Hypotension Bradycardia Plan of Treatment: Follow-up with primary care provider as needed Take all medications as prescribed Assessment: See discharge summary
[2023-10-26 11:16] LABS: Glucose, Whole Blood 143 mg/dL (60-115)
[2023-10-26 11:42] VITALS: BP 130/63
[2023-10-26] MEDS: Valsartan 80 MG TABLET PO (11:42)
--- NOTE | 2023-10-26 16:27 | P.CDIM_ITS ---
PROVIDER RESPONSE TEXT: To clarify, the appropriate diagnosis supported by the clinical indicators: Obesity Due to excess calories QUERY TEXT: PHYSICIAN'S DOCUMENTATION REQUEST Date of Query: 10/26/2023 08:15 AM EDT Patient Name: Brandon Baumann Admit Date: 10/24/2023 Dear Kerry Sanders, A review of the medical record indicates additional documentation may be needed. Please review below and update the documentation accordingly. Clinical Indicators: Height: 5ft 8in Weight: 111.4kg BMI: 37.3 Other Clinical Notes Supporting Significance of the BMI: Nursing notes Height and Weight: Obese class II If possible, please provide an associated diagnosis related to the abnormal BMI, such as: Overweight Obesity Due to excess calories Obesity Drug induced Obesity Due to other cause Specify the other cause Other (explain) Clinically unable to determine (explain) Thank you, Gia Ovalle, CCS, CDIS Use of terms such as suspected, likely, concern for, or probable (associated with a specific diagnosi s that is being evaluated, monitored, or treated as if it exists) are acceptable and can be coded in the inpatient se tting, when documented at the time of discharge. Please use your independent medical judgment in providing your response. THIS QUERY IS PART OF THE PERMANENT MEDICAL RECORD
== END 2023-10-26 15:00 | disposition home or self-care (01) | DRG 312 ==
LOC: HO.ED 21:37 → HO.EDOVER 10-24 01:59 → HO.IMC 10-24 03:08
PROVIDERS: Emergency Medicine; Physician Assistant; Admitting Provider Student in an Organized Health Care Education/Training Program; Emergency Provider Internal Medicine; PCP Internal Medicine; Visit Provider Nurse Practitioner Acute Care
DX: I95.1 Orthostatic hypotension (principal); N17.9 Acute kidney failure, unspecified; I50.32 Chronic diastolic (congestive) heart failure; I25.10 Atherosclerotic heart disease of native coronary artery without angina pectoris; E87.6 Hypokalemia; K58.0 Irritable bowel syndrome with diarrhea; N40.0 Benign prostatic hyperplasia without lower urinary tract symptoms; R00.1 Bradycardia, unspecified; F43.10 Post-traumatic stress disorder, unspecified; I11.0 Hypertensive heart disease with heart failure; E66.09 Other obesity due to excess calories; Z20.822 Contact with and (suspected) exposure to COVID-19; Z87.891 Personal history of nicotine dependence; Z68.37 Body mass index [BMI] 37.0-37.9, adult; Z79.4 Long term (current) use of insulin; Z79.84 Long term (current) use of oral hypoglycemic drugs; Z79.899 Other long term (current) drug therapy
CPT/HCPCS: 36415; 80048; 80053; 81003; 82550; 82947; 83605; 84439; 84443; 84484; 85025; 85610; 85652; 86140; 87040; 87633; 93005; 97161; 99285; J1650; J2405

== ENCOUNTER → 2023-10-23 20:31 | Outpatient (BNV) | payer MEDICARE, SELFPAY | PROVIDERS: Admitting Provider Student in an Organized Health Care Education/Training Program; Emergency Provider Internal Medicine; Visit Provider Internal Medicine | DX: I10 Essential (primary) hypertension (principal) | CPT/HCPCS: 93010 ==

== ENCOUNTER → 2023-10-24 01:58 | Outpatient (BNV) | payer MEDICARE, SELFPAY | PROVIDERS: Admitting Provider Student in an Organized Health Care Education/Training Program; Emergency Provider Internal Medicine; Visit Provider Student in an Organized Health Care Education/Training Program | DX: N17.9 Acute kidney failure, unspecified (principal); R55 Syncope and collapse | CPT/HCPCS: 99223; 99232; 99239; 99499 ==

== ENCOUNTER 2023-11-10 09:16 | Emergency (ER) | payer OTHER, SELFPAY ==
[2023-11-10 09:25] VITALS: BP 126/79; BP 92/49; PULSE 52; PULSE 66; RESP 16; TEMP 36.9; O2SAT 100; O2SAT 97; BMI 33.4
[2023-11-10 09:30] LABS: Glucose, Whole Blood 130 mg/dL (60-115)
--- NOTE | 2023-11-10 09:33 | PC.NURSE ---
pt ERIK form home, c/o chronic pain unmanaged with his home pain medication.pt reports he takes Dilaudid and morphine at home and took it as prescribed this AM. pts BP in ED was low, taken 3 times 105/28, 88/39, 92/49 - Dr. Kathleen made aware.
--- NOTE | 2023-11-10 10:12 | PC.NURSE ---
patient in room swearing at staff, has been here under an hour and demanding medication and to see a doctor, patient requesting to leave and be discharged. patient educated on appropriate behavior in the ER and that he is on the list waiting to be seen.
--- NOTE | 2023-11-10 10:38 | ED.GENADULT ---
HPI - General Adult General Chief complaint: General Medical Stated complaint: All over pain Time Seen by Provider: 11/10/23 10:38 Source: patient Mode of arrival: EMS Limitations: no limitations History of Present Illness ED Provider: Dr. Oli Kathleen HPI narrative: 73-year-old male with pertinent history of insulin-dependent diabetes mellitus, congestive heart failure with preserved ejection fraction, coronary artery disease, hypertension, mood disorder, BPH who presents to the emergency department for evaluation of generalized body ache. Patient states he has had this pain for many months and he has not gotten any pain relief with gabapentin. The patient states that he has been trying to get into a pain management clinic at the [place] but has not gotten into this clinic yet. Patient states that his body aches all over. He states the pain is worse in his neck shoulders and back. States the pain is constant and is 8/10. Pain is worse with movement. The patient was hospitalized here from 10/24/2023 until 10/26/2023. At that time the patient was also complaining of this chronic pain but was also hypotensive which was felt to be multifactorial caused by volume depletion from vomiting and diarrhea and being on too high of a dose of anti hypertensive medications. When the patient was discharged home, his antihypertensive medications were decreased by half. He was prescribed metoprolol 25 mg daily and valsartan 80 mg daily. The patient was not certain if he is taking this decreased dose. He states he just takes the medications that are given to him Related Data Home Medications ?Medication ?Instructions ?Recorded ?Confirmed acetaminophen 500 mg tablet 1,000 mg PO Q6H PRN Pain 10/24/23 10/24/23 atorvastatin 80 mg tablet 40 mg PO DAILY 10/24/23 10/24/23 divalproex 250 mg tablet,extended 250 mg PO BEDTIME 10/24/23 10/24/23 release 24 hr divalproex 500 mg tablet,extended 500 mg PO BEDTIME 10/24/23 10/24/23 release 24 hr furosemide 40 mg tablet 40 mg PO DAILY 10/24/23 10/24/23 gabapentin 600 mg tablet 900 mg PO TID 10/24/23 10/24/23 isosorbide mononitrate 30 mg 30 mg PO DAILY 10/24/23 10/24/23 tablet,extended release 24 hr melatonin 3 mg capsule 3 mg PO BEDTIME 10/24/23 10/24/23 metformin 500 mg tablet 500 mg PO BID 10/24/23 10/24/23 morphine 15 mg immediate release 15 mg PO Q6-8H PRN Pain 10/24/23 10/24/23 tablet naproxen 500 mg tablet 500 mg PO BID PRN Pain 10/24/23 10/24/23 oxybutynin chloride 5 mg tablet 5 mg PO BEDTIME 10/24/23 10/24/23 quetiapine 100 mg tablet 100 mg PO BEDTIME 10/24/23 10/24/23 tamsulosin 0.4 mg capsule 0.4 mg PO DAILY 10/24/23 10/24/23 tizanidine 2 mg tablet 2 mg PO TID PRN muscle spasms 10/24/23 10/24/23 tramadol 50 mg tablet 50 mg PO Q8H PRN Moderate Pain 10/24/23 10/24/23 (Scale Score 5-6) Previous Rx's ?Medication ?Instructions ?Recorded insulin glargine 100 unit/mL (3 60 unit (0.6 mL) subcut QAM #15 mL 10/26/23 mL) subcutaneous pen (Lantus Solostar U-100 Insulin) metoprolol tartrate 25 mg tablet 25 mg PO BID #60 tabs 10/26/23 valsartan 80 mg tablet 80 mg PO DAILY #90 tabs 10/26/23 cyclobenzaprine 10 mg tablet 10 mg PO TID PRN muscle pain or 11/10/23 spasm #30 tabs Allergies Allergy/AdvReac Type Severity Reaction Status Date / Time No Known Allergies Allergy Verified 11/10/23 09:29 Review of Systems Review of Systems: Yes all other systems are reviewed and are negative FOR[facility] Past Medical History Medical History Chronic diastolic heart failure PTSD (post-traumatic stress disorder) Coronary artery disease Diabetes mellitus Hypertension Irritable bowel syndrome Social History Social History Household Members: None Housing: Apartment Do you presently have visiting nurse or other home services: Yes ([facility] weekly) Comment: refused bed alarm Patient Tobacco Use Status: Former Tobacco user Tobacco use type: Cigarette Smoked in Last 30 Days: No Use of substances other than those prescribed or required for medical reasons: No Advance Directives: No Advance Directives Information Provided: Yes Do you have a plan to hurt others: No Plan service: Yes Physical Exam ED Vital Signs: Vital Signs - 24 hr 11/10/23 09:25 11/10/23 11:13 11/10/23 12:37 Temperature 98.4 F 97.8 F 97.8 F Pulse Rate 52 49 L 48 L Respiratory Rate 16 14 16 Blood Pressure 92/49 L 108/50 L 109/45 L Pulse Oximetry 97 97 98 Oxygen Delivery Method Room Air Room Air Room Air BMI result Body Mass Index 33.4 Patient's blood pressure was low 92/49 otherwise unremarkable Exam: General: Awake, alert in no distress Head: Normocephalic, atraumatic EENT: PERRL, Lids normal, sclera normal, conjunctiva normal, nose normal , ears normal, throat without erythema or exudates Neck: Supple, no adenopathy Lung: breath sounds symmetric, no wheezing, rales or rhonchi Chest: symmetric movement, nontender Heart: regular rate and rhythm, normal S1, S2 no murmurs or rubs Abdomen: soft, non-tender, nondistended, normal bowel sounds Back: no vertebral tenderness, no CVAT Extremities: no deformities, moves all extremities symmetrically. Patient has full range of motion of his joints of his upper and lower extremities. There is no increased warmth over his joints. No significant swelling noted of his joints Neuro: Awake, alert, oriented, normal speech, cranial nerves intact, moves all extremities symmetrically Psych: Pleasant, cooperative Medications Administered Discontinued Medications Generic Name Dose Route Start Last Admin Trade Name Joann PRN Reason Stop Dose Admin Hydromorphone HCl 4 mg 11/10/23 11:04 11/10/23 11:21 Hydromorphone Hcl 4 Mg Tablet PO 11/10/23 11:05 4 mg ONCE ONE Administration Medical Decision Making Medical Decision Making MDM Narrative: 73-year-old male with pertinent history of insulin-dependent diabetes mellitus, congestive heart failure with preserved ejection fraction, coronary artery disease, hypertension, mood disorder, BPH who presents to the emergency department for evaluation of generalized body ache. Patient states he has had this pain for many months and he has not gotten any pain relief with gabapentin. Vital signs revealed low blood pressure otherwise unremarkable. Physical examination was unremarkable Differential diagnosis: ?Includes but is not limited to inflammatory arthritis, chronic pain syndrome, electrolyte abnormalities, anemia Following evaluation was ordered: CBC, CMP, ESR, CRP Patient was initially treated with the following: Dilaudid 4 mg orally Course: 14:22 Macrocytic anemia with an H&H of 10.7 and 31.0. Patient has had similar anemia in the past. Low platelet count a [id number]. Elevated BUN 1.62. This is chronic. CRP and ESR were normal. Patient got no relief from the oral Dilaudid. At this time I do not have a clear etiology for his pain and I suspect that he has a chronic pain syndrome. The patient was advised to take Tylenol for pain. He was also prescribed Flexeril 10 mg 3 times a day to see if this helps with his pain. He was given printed and verbal instructions and discharged home. Admission/Observation Consideration of admission/observation: Escalation of care including admission/observation considered Lab Data MDM Lab Attestation statement: I reviewed the patient's lab results. 11/10/23 11:23 11/10/23 11:23 Labs: Lab Results 11/10/23 11/10/23 Range/Units 09:26 11:23 WBC 7.0 (4.8-10.8) X10*3/uL RBC 3.15 L (4.60-5.80) X10*6/uL Hgb 10.7 L (14.0-18.0) g/dl Hct 31.0 L (42.0-52.0) % MCV 98.4 H (80.0-98.0) fL MCH 34.0 H (27.0-33.0) pg MCHC 34.5 (31.0-36.0) g/dl RDW 13.7 (11.0-16.0) % Plt Count 125 L (160-400) X10*3/uL MPV 10.6 (9.4-12.4) fL Immature Gran % (Auto) 1.0 H (0.0-0.4) % Neut % (Auto) 41.2 L (45-73) % Lymph % (Auto) 40.6 H (20-40) % [place] % (Auto) 11.1 H (2-11) % Eos % (Auto) 5.1 H (0-4) % Baso % (Auto) 1.0 (0-2) % Lymph # (Auto) 2.9 (1.2-4.9) X10*3/uL [place] # (Auto) 0.8 (0.1-1.2) X10*3/uL Eos # (Auto) 0.4 (0.0-0.4) X10*3/uL Baso # (Auto) 0.1 (0.0-0.2) X10*3/uL Abs Immat Gran (auto) 0.07 H (0.00-0.03) X10*3/uL Absolute Neuts (auto) 2.9 (2.0-8.3) x10*3/uL Absolute Nucleated RBC 0.000 (0.0-0.012) X10*3/uL Nucleated RBC % (auto) 0.0 (0.0-0.2) /100WBC ESR 7 (0-15) MM/HR Sodium 142 (135-145) mmol/L Potassium 4.7 (3.3-5.1) mmol/L Chloride 107 (96-108) mmol/L Carbon Dioxide 26 (22-29) mmol/L Anion Gap 14 (12-20) BUN 15 (9-16) mg/dL Creatinine 1.62 H (0.5-1.4) mg/dL Estim Creat Clear Calc 46.5 Estimated GFR 42 POC Glucose 130 H (60-115) mg/dL Random Glucose 102 (60-115) mg/dL Calcium 10.0 (8.4-10.2) mg/dL Total Bilirubin 0.4 (0.0-1.0) mg/dL AST 12 (5-37) U/L ALT 9 (0-40) U/L Alkaline Phosphatase 54 (39-117) U/L C-Reactive Protein < 0.04 (< or = 0.50) mg/dL Total Protein 6.0 L (6.5-8.0) g/dL Albumin 3.8 (3.5-5.0) g/dL External Record Review External record reviewed: Inpatient record Prescription Management I considered prescription management with: Other (Antispasmodic medications) Chronic Conditions Patient?s care impacted by: Diabetes and Hypertension Discharge Plan Discharge Clinical Impression: Myalgia, Chronic pain syndrome Patient Disposition: Home, Self-Care Additional Instructions: Your blood work did revealed mild anemia but this is not related to your pain Your white blood cell count was normal. Your inflammatory markers (CRP and ESR) were normal. At this time I do not have a clear cause for your chronic pain, you will need to get into a pain management clinic through the [place] [facility]. Take Tylenol (acetaminophen) 500 mg pills, 2 pills every 6 hours as needed for pain or fever. Take Flexeril (cyclobenzaprine) 10 mg pills, 1 pill every 6-8 hours as needed for pain or spasm. ?This medication will make you sleepy. ?Do not drive or work while taking this medication. Follow-up with your doctor in 2 days. Please return to the emergency department if your symptoms get worse or if you develop any symptoms that are concerning to you. When you were hospitalized last they decreased your antihypertension medications since your blood pressure was low. Your blood pressure was low again today. You need to make sure that you are taking metoprolol 25 mg once a day and valsartan 80 mg once a day. (your previous dose was metoprolol 50 mg once a day and valsartan 160 mg once a day). Prescriptions: New cyclobenzaprine 10 mg tablet 10 mg PO TID PRN (Reason: muscle pain or spasm) Qty: 30 0RF No Action tramadol 50 mg Tablet 50 mg PO Q8H PRN (Reason: Moderate Pain (Scale Score 5-6)) acetaminophen 500 mg Tablet 1,000 mg PO Q6H PRN (Reason: Pain) morphine 15 mg Tablet 15 mg PO Q6-8H PRN (Reason: Pain) furosemide 40 mg Tablet 40 mg PO DAILY metformin 500 mg Tablet 500 mg PO BID atorvastatin 80 mg Tablet 40 mg PO DAILY gabapentin 600 mg Tablet 900 mg PO TID Rx Instructions: 1 and 1/2 tablets TID tizanidine 2 mg Tablet 2 mg PO TID PRN (Reason: muscle spasms) isosorbide mononitrate 30 mg Tablet Extended Release 24 Hr 30 mg PO DAILY quetiapine 100 mg Tablet 100 mg PO BEDTIME tamsulosin 0.4 mg Capsule 0.4 mg PO DAILY oxybutynin chloride 5 mg Tablet 5 mg PO BEDTIME naproxen 500 mg Tablet 500 mg PO BID PRN (Reason: Pain) melatonin 3 mg Capsule 3 mg PO BEDTIME divalproex 500 mg Tablet Extended Release 24 Hr 500 mg PO BEDTIME divalproex 250 mg Tablet Extended Release 24 Hr 250 mg PO BEDTIME valsartan 80 mg Tablet 80 mg PO DAILY Qty: 90 0RF Protocol: Hold for SBP< HOLD for SBP < : 90 metoprolol tartrate 25 mg Tablet 25 mg PO BID Qty: 60 0RF Protocol: Hold for SBP/HR < HOLD for SBP < : 90 HOLD for HR < : 60 insulin glargine [Lantus Solostar U-100 Insulin] 100 unit/mL (3 mL) Insulin Pen 60 unit SUBCUT QAM Qty: 15 0RF Print Language: Nepalese
[2023-11-10 11:13] VITALS: BP 108/50; PULSE 49; RESP 14; TEMP 36.6; O2SAT 97
[2023-11-10 11:27] LABS: MANUAL DIFF FLAG NO
[2023-11-10 11:30] LABS: Basophils Absolute Auto 0.1 X10*3/uL (0.0-0.2); Eosinophils Absolute Auto 0.4 X10*3/uL (0.0-0.4); Eosinophils Percent Auto 5.1 % (0-4); Hemoglobin 10.7 g/dl (14.0-18.0); Imm Gran Abs Auto 0.07 X10*3/uL (0.00-0.03); Lymphocytes Absolute Auto 2.9 X10*3/uL (1.2-4.9); Lymphocytes Percent Auto 40.6 % (20-40); Mean Corpuscular HGB Conc 34.5 g/dl (31.0-36.0); Mean Corpuscular Volume 98.4 fL (80.0-98.0); Mean Platelet Volume 10.6 fL (9.4-12.4); Monocytes Absolute Auto 0.8 X10*3/uL (0.1-1.2); Monocytes Percent Auto 11.1 % (2-11); Neutrophils Absolute Auto 2.9 x10*3/uL (2.0-8.3); Neutrophils Percent Auto 41.2 % (45-73); Platelet Count 125 X10*3/uL (160-400); Red Blood Count 3.15 X10*6/uL (4.60-5.80); Red Cell Distribution Width 13.7 % (11.0-16.0)
[2023-11-10 12:00] LABS: Alanine Aminotransferase 9 U/L (0-40); Albumin Level 3.8 g/dL (3.5-5.0); Alkaline Phosphatase 54 U/L (39-117); Anion Gap 14 (12-20); Aspartate Amino Transferase 12 U/L (5-37); Bilirubin Total 0.4 mg/dL (0.0-1.0); Blood Urea Nitrogen 15 mg/dL (9-16); C Reactive Protein < 0.04 mg/dL (< or = 0.50); Carbon Dioxide 26 mmol/L (22-29); Chloride 107 mmol/L (96-108); Creatinine Clr Calc Pharmacy 46.5; Estimated Glomerular Filt Rate 42; Glucose Random 102 mg/dL (60-115); Potassium 4.7 mmol/L (3.3-5.1); Sodium 142 mmol/L (135-145)
[2023-11-10 12:07] LABS: Erythrocyte Sedimentation Rate 7 MM/HR (0-15)
[2023-11-10 12:37] VITALS: BP 109/45; PULSE 48; RESP 16; TEMP 36.6; O2SAT 98
[2023-11-10 14:27] VITALS: BP 137/36; PULSE 49; RESP 16; TEMP 36.6; O2SAT 98
[2023-11-10] MEDS: Cyclobenzaprine HCl 10 MG TABLET PO (14:28)
--- NOTE | 2023-11-10 14:35 | PC.NURSE ---
patient set to be d/c patient upset about d/c plan
--- NOTE | 2023-11-10 14:46 | PC.NURSE ---
security at bedside with patient about d/c and plan, patient informed that he is d/c. paperwork given, patient brought to waiting room
== END 2023-11-10 14:48 | disposition home or self-care (01) ==
PROVIDERS: Emergency Provider Emergency Medicine Emergency Medical Services
DX: M79.10 Myalgia, unspecified site (principal); G89.4 Chronic pain syndrome; E11.9 Type 2 diabetes mellitus without complications; I10 Essential (primary) hypertension; Z79.84 Long term (current) use of oral hypoglycemic drugs; Z79.899 Other long term (current) drug therapy
CPT/HCPCS: 36415; 80053; 82947; 85025; 85652; 86140; 99283; 99284

== ENCOUNTER 2024-05-11 17:38 | Emergency (ER) | payer OTHER, SELFPAY ==
--- NOTE | ~2024-05-11 | CT_ITS ---
CLINICAL HISTORY: Lower abdominal pain rule out appendicitis, divert CT abdomen and pelvis with contrast Comparison: None Findings: The lung bases are clear. 4 cm cyst in the left kidney. No hydronephrosis. No ureteral stones. Spleen, adrenal glands, pancreas, gallbladder and liver are normal. No bowel obstruction, pneumoperitoneum, or pneumatosis. Abdominal aorta is normal caliber with extensive calcified and noncalcified plaquing. Normal appendix. No acute fracture. Multilevel degenerative change in the lumbar spine. IMPRESSION: No acute findings. Normal appendix. This document has been electronically signed by: Chandan Sifuentes MD on 05/11/2024 21:12:50
[2024-05-11 17:42] VITALS: BP 138/78; BP 160/55; PULSE 56; PULSE 87; RESP 18; TEMP 36.6; O2SAT 96; O2SAT 97; BMI 30.1
--- NOTE | 2024-05-11 17:49 | ED.BACK ---
HPI - Back Pain/Injury General Chief Complaint: General Medical Stated Complaint: Lower back pain poss d/t polynoidalbcyst Time Seen by Provider: 05/11/24 17:48 Source: patient Mode of arrival: EMS Limitations: no limitations History of Present Illness ED Provider: Dr. 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 Patient states he has been having constant abdominal pain which waxes and wanes in intensity which is 9/10 at its worst. He states the pain is worse in his lower abdomen but he was located throughout his entire abdomen. He states he was had similar pain in the past but did not receive a diagnosis. He also states he was having pain in both of his shoulders, the pain is worse with movement. States he was weak he was having difficulty walking Patient states that he had a pilonidal surgery for an abscess/cyst 20 years prior and he believes that he was recurrence of an abscess in this area secondary to pain. Patient states that he has limited ability to walk and has not been able to get out of his house. He states that he has money but does not have access to food since he can not go out and buy food. He believes that he was well-nourished and he has lost at least 20 lb unintentionally. He denied fever but states he did have chills. He complains of intermittent left anterior chest pain but he was not having pain at this time. He had nausea but no vomiting. He denied diarrhea, dark dark stools or bloody stools. Related Data Home Medications ?Medication ?Instructions ?Recorded ?Confirmed acetaminophen 500 mg tablet 1,000 mg PO Q6H PRN Pain 10/24/23 10/24/23 atorvastatin 80 mg tablet 40 mg PO DAILY 10/24/23 10/24/23 divalproex 250 mg tablet,extended 250 mg PO BEDTIME 10/24/23 10/24/23 release 24 hr divalproex 500 mg tablet,extended 500 mg PO BEDTIME 10/24/23 10/24/23 release 24 hr furosemide 40 mg tablet 40 mg PO DAILY 10/24/23 10/24/23 gabapentin 600 mg tablet 900 mg PO TID 10/24/23 10/24/23 isosorbide mononitrate 30 mg 30 mg PO DAILY 10/24/23 10/24/23 tablet,extended release 24 hr melatonin 3 mg capsule 3 mg PO BEDTIME 10/24/23 10/24/23 metformin 500 mg tablet 500 mg PO BID 10/24/23 10/24/23 morphine 15 mg immediate release 15 mg PO Q6-8H PRN Pain 10/24/23 10/24/23 tablet naproxen 500 mg tablet 500 mg PO BID PRN Pain 10/24/23 10/24/23 oxybutynin chloride 5 mg tablet 5 mg PO BEDTIME 10/24/23 10/24/23 quetiapine 100 mg tablet 100 mg PO BEDTIME 10/24/23 10/24/23 tamsulosin 0.4 mg capsule 0.4 mg PO DAILY 10/24/23 10/24/23 tizanidine 2 mg tablet 2 mg PO TID PRN muscle spasms 10/24/23 10/24/23 tramadol 50 mg tablet 50 mg PO Q8H PRN Moderate Pain 10/24/23 10/24/23 (Scale Score 5-6) Previous Rx's ?Medication ?Instructions ?Recorded insulin glargine 100 unit/mL (3 60 unit (0.6 mL) subcut QAM #15 mL 10/26/23 mL) subcutaneous pen (Lantus Solostar U-100 Insulin) metoprolol tartrate 25 mg tablet 25 mg PO BID #60 tabs 10/26/23 valsartan 80 mg tablet 80 mg PO DAILY #90 tabs 10/26/23 cyclobenzaprine 10 mg tablet 10 mg PO TID PRN muscle pain or 11/10/23 spasm #30 tabs Allergies Allergy/AdvReac Type Severity Reaction Status Date / Time dicyclomine [From Bentyl] Allergy Unknown Verified 05/11/24 17:50 mepivacaine Allergy Unknown Verified 05/11/24 17:50 Review of Systems Review of Systems: Yes all other systems are reviewed and are negative [facility] Past Medical History [facility] Narrative: Social history: Patient lives at home alone. He denies tobacco, alcohol and drug use. Medical History Chronic diastolic heart failure PTSD (post-traumatic stress disorder) Coronary artery disease Diabetes mellitus Hypertension Irritable bowel syndrome Social History Social History Household Members: None Housing: Apartment Do you presently have visiting nurse or other home services: Yes ([facility] weekly) Alcohol intake: former Comment: refused bed alarm Patient Tobacco Use Status: Former Tobacco user Tobacco use type: Cigarette Smoked in Last 30 Days: No Use of substances other than those prescribed or required for medical reasons: No Advance Directives: No Advance Directives Information Provided: Yes service: Yes Physical Exam Vital Signs: Vital Signs: Last Vital Signs Temp 98.0 F 05/11/24 20:15 Pulse 58 05/11/24 20:15 Resp 18 05/11/24 20:15 BP 159/66 H 05/11/24 20:15 Pulse Ox 97 05/11/24 20:15 O2 Del Method Room Air 05/11/24 20:15 BMI result Body Mass Index 30.1 Exam: General: Awake, alert in no distress EENT: PERRL, Lids normal, sclera normal, conjunctiva normal, nose normal , ears normal, throat without erythema or exudates Neck: Supple, no adenopathy Lung: breath sounds symmetric, no wheezing, rales or rhonchi Chest: symmetric movement, nontender Heart: regular rate and rhythm, normal S1, S2 no murmurs or rubs Abdomen: soft, obese, mild epigastric tenderness, moderate right lower and left lower quadrant tenderness, mild suprapubic tenderness, no rebound, no voluntary or involuntary guarding Back: Patient has a scar in the pilonidal area, the scar is intact, there is no erythema, increased warmth, flocculence, induration or tenderness with palpation of this region Extremities: no deformities, patient does have pain with passive and active range of motion of his shoulders Neuro: Awake, alert, oriented, normal speech, cranial nerves intact, moves all extremities symmetrically Psych: Pleasant, cooperative Medications Administered Discontinued Medications Generic Name Dose Route Start Last Admin Trade Name Freq PRN Reason Stop Dose Admin Sodium Chloride 1,000 mls @ 999 mls/hr 05/11/24 18:02 05/11/24 20:02 Ns IV 05/11/24 19:02 999 mls/hr .Q1H1M STA Administration Iohexol 100 ml 05/11/24 20:29 05/11/24 20:29 Iohexol 350 Mg/Ml 100 Ml Infus..Btl IV 05/11/24 20:30 85 ml ONCE ONE Administration Morphine Sulfate 4 mg 05/11/24 18:02 05/11/24 19:55 Morphine Sulfate 4 Mg/Ml Cartridge IVPUSH 05/11/24 18:03 4 mg ONCE STA Administration Protocol Ondansetron HCl 4 mg 05/11/24 18:02 05/11/24 19:55 Ondansetron Hcl 4 Mg/2 Ml Vial IVPUSH 05/11/24 18:03 4 mg ONCE ONE Administration Medical Decision Making Medical Decision Making [facility] Narrative: 74-year-old male with a history of insulin-dependent diabetes mellitus, congestive heart failure with preserved ejection fraction, coronary artery disease, hypertension, mood disorder, BPH , irritable bowel syndrome, chronic pain syndrome who presents emergency department for evaluation of abdominal pain, bilateral shoulder pain, pain in the pilonidal area-he believes that he has 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 His abdominal pain came on gradually, is constant, but waxes and wanes in intensity no pain, his 9/10, diffuse pain worse in the lower abdomen and epigastric area, 9/10 at its worse. He states that he was we can have difficulty walking. He also is having difficulty getting food since he can not leave his house. Patient does have pain with passive and active range of motion of the shoulders. Patient was pilonidal area reveals no evidence of an infection and recurrence of his cyst. Patient reported a 20 lb weight loss secondary to being homebound and to having no access to food. Patient was diffuse abdominal tenderness with increased tenderness in his lower abdomen. Differential diagnosis: ?Includes but is not limited to pancreatitis, diverticulitis, appendicitis, gastritis, chronic pain syndrome, pilonidal abscess/cyst Course: 21:41 Start physician observation My interpretation patient's laboratory evaluation is as follows: CBC was normal. Chloride was elevated 110. High sensitive troponin I was elevated at 69.0 repeat 2 hour troponin was unchanged at 70.3 which is reassuring suggesting the patient did not have myocardial injury is the cause of his symptoms. LFTs were normal. Lipase was normal. CT scan of the abdomen pelvis with IV contrast did not show any significant abnormalities and did not a clear cause for the patient's pain which is reassuring. Twelve EKG did reveal inverted T-waves in 1, aVL, V5 and V6 which were unchanged compared to EKG dated 09/23/2023. The patient was treated with morphine 4 mg IV, Zofran 4 mg IV and normal saline IV x1 L. patient states that he only got minimal improvement of his pain therefore he was given a 2nd dose of morphine 4 mg IV. The patient states that he was not able to go home since he was having difficulty caring for himself, getting food and living alone. Therefore the patient will be kept in the emergency department until he can be evaluated by case management and physical therapy. I did order PRN morphine and PRN Tylenol for his pain. Patient will remain in the emergency department until disposition can be determined or until patient's symptoms improve over time. Admission/Observation Consideration of admission/observation: Escalation of care including admission/observation considered (Yes) Lab Data MDM Lab Attestation statement: I reviewed the patient's lab results. 05/11/24 19:03 05/11/24 19:03 Labs: Lab Results 05/11/24 05/11/24 Range/Units 19:03 21:18 WBC 8.5 (4.8-10.8) X10*3/uL RBC 4.62 D (4.60-5.80) X10*6/uL Hgb 14.0 D (14.0-18.0) g/dl Hct 40.2 L D (42.0-52.0) % MCV 87.0 (80.0-98.0) fL MCH 30.3 (27.0-33.0) pg MCHC 34.8 (31.0-36.0) g/dl RDW 12.7 (11.0-16.0) % Plt Count 142 L (160-400) X10*3/uL MPV 11.8 (9.4-12.4) fL Immature Gran % (Auto) 0.4 (0.0-0.4) % Neut % (Auto) 50.5 (45-73) % Lymph % (Auto) 35.6 (20-40) % Mills % (Auto) 9.3 (2-11) % Eos % (Auto) 3.5 (0-4) % Baso % (Auto) 0.7 (0-2) % Lymph # (Auto) 3.0 (1.2-4.9) X10*3/uL Mills # (Auto) 0.8 (0.1-1.2) X10*3/uL Eos # (Auto) 0.3 (0.0-0.4) X10*3/uL Baso # (Auto) 0.1 (0.0-0.2) X10*3/uL Abs Immat Gran (auto) 0.03 (0.00-0.03) X10*3/uL Absolute Neuts (auto) 4.3 (2.0-8.3) x10*3/uL Absolute Nucleated RBC 0.000 (0.0-0.012) X10*3/uL Nucleated RBC % (auto) 0.0 (0.0-0.2) /100WBC APTT 27.8 (26.0-36.8) SEC Sodium 141 (135-145) mmol/L Potassium 3.3 D (3.3-5.1) mmol/L Chloride 110 H (96-108) mmol/L Carbon Dioxide 25 (22-29) mmol/L Anion Gap 9 L (12-20) BUN 13 (9-16) mg/dL Creatinine 1.04 (0.5-1.4) mg/dL Estim Creat Clear Calc 67.7 Estimated GFR > 60 Random Glucose 112 (60-115) mg/dL Lactic Acid 1.3 (0.5-2.0) mmol/L Calcium 9.9 (8.4-10.2) mg/dL Total Bilirubin 0.9 (0.0-1.0) mg/dL AST 22 (5-37) U/L ALT 13 (0-40) U/L Alkaline Phosphatase 75 (39-117) U/L Troponin I High Sens 69.0 H D 70.3 H (<3.5-35.0) ng/L Total Protein 7.1 (6.5-8.0) g/dL Albumin 4.2 (3.5-5.0) g/dL Lipase 20 (8-78) U/L Independent Interpretation I performed an independent interpretation of an: EKG Interpretation: My independent interpretation patient's 12 EKG done at 19:18 hours is as follows: Sinus bradycardia with a rate of 55, normal IN interval, QRS duration QTC interval, no ST segment elevation, no ST segment depression, inverted T-waves in leads 1, aVL, V5 and V6. Compared to EKG dated 10/23/2023 at 20:35 hours, sinus bradycardia was old. T-wave inversions are old as well. No significant change between these 2 EKGs. Radiology Impression Discussion of test interpretation with radiology: I have reviewed the radiologist's reading. Radiologist Impression: CT abdomen and pelvis with contrast Comparison: None Findings: The lung bases are clear. 4 cm cyst in the left kidney. No hydronephrosis. No ureteral stones. Spleen, adrenal glands, pancreas, gallbladder and liver are normal. No bowel obstruction, pneumoperitoneum, or pneumatosis. Abdominal aorta is normal caliber with extensive calcified and noncalcified plaquing. Normal appendix. No acute fracture. Multilevel degenerative change in the lumbar spine. IMPRESSION: No acute findings. Normal appendix. This document has been electronically signed by: Chandan Sifuentes MD on 05/11/2024 21:12:50 Chronic Conditions Patient?s care impacted by: Diabetes and Other (Congestive heart failure, chronic pain syndrome) Discharge Plan Discharge Clinical Impression: Abdominal pain, Weakness Prescriptions: No Action tramadol 50 mg Tablet 50 mg PO Q8H PRN (Reason: Moderate Pain (Scale Score 5-6)) acetaminophen 500 mg Tablet 1,000 mg PO Q6H PRN (Reason: Pain) morphine 15 mg Tablet 15 mg PO Q6-8H PRN (Reason: Pain) furosemide 40 mg Tablet 40 mg PO DAILY metformin 500 mg Tablet 500 mg PO BID atorvastatin 80 mg Tablet 40 mg PO DAILY gabapentin 600 mg Tablet 900 mg PO TID Rx Instructions: 1 and 1/2 tablets TID tizanidine 2 mg Tablet 2 mg PO TID PRN (Reason: muscle spasms) isosorbide mononitrate 30 mg Tablet Extended Release 24 Hr 30 mg PO DAILY quetiapine 100 mg Tablet 100 mg PO BEDTIME tamsulosin 0.4 mg Capsule 0.4 mg PO DAILY oxybutynin chloride 5 mg Tablet 5 mg PO BEDTIME naproxen 500 mg Tablet 500 mg PO BID PRN (Reason: Pain) melatonin 3 mg Capsule 3 mg PO BEDTIME divalproex 500 mg Tablet Extended Release 24 Hr 500 mg PO BEDTIME divalproex 250 mg Tablet Extended Release 24 Hr 250 mg PO BEDTIME valsartan 80 mg Tablet 80 mg PO DAILY Qty: 90 0RF Protocol: Hold for SBP< HOLD for SBP < : 90 metoprolol tartrate 25 mg Tablet 25 mg PO BID Qty: 60 0RF Protocol: Hold for SBP/HR < HOLD for SBP < : 90 HOLD for HR < : 60 insulin glargine [Lantus Solostar U-100 Insulin] 100 unit/mL (3 mL) Insulin Pen 60 unit SUBCUT QAM Qty: 15 0RF cyclobenzaprine 10 mg tablet 10 mg PO TID PRN (Reason: muscle pain or spasm) Qty: 30 0RF Print Language: Bulgarian
--- NOTE | 2024-05-11 18:06 | ECG_ITS ---
Test Reason : CHEST PAIN Blood Pressure : */* mmHG Vent. Rate : 55 BPM Atrial Rate : 55 BPM P-R Int : 152 ms QRS Dur : 92 ms QT Int : 452 ms P-R-T Axes : -25 28 163 degrees QTcB Int : [address] & T wave abnormality, consider lateral ischemia Abnormal ECG When compared with ECG of 23-Oct-2023 20:35, QT has lengthened Referred By: Oli Kathleen Electronically Signed By: EDWARD ROMERO MD
--- NOTE | 2024-05-11 18:47 | MHC.EDTECH ---
patient was very unpleasant with the nurse patient was cursing at the nurse because he was trying to start and IV. when I went to draw his blood and he was refusing for me to take blood on his hand saying I only get one try on his Ac
--- NOTE | 2024-05-11 19:02 | PC.NURSE ---
This RN attempted to start IV, patient stating hands not allowed and he is a hard stick. This RN unable to start IV patient then laughing stating he always needs an ultrasound guided IV. Zana RN into nhung to start ultrasound guided IV, while IV was being placed patient became agitated and started yelling at Zana. This RN went back into room patient stating to get out and he doesn't want this RN in his room. Provider aware that labs and ordered medications not given
[2024-05-11 19:11] LABS: MANUAL DIFF FLAG NO
[2024-05-11 19:17] LABS: Basophils Absolute Auto 0.1 X10*3/uL (0.0-0.2); Basophils Percent Auto 0.7 % (0-2); Eosinophils Absolute Auto 0.3 X10*3/uL (0.0-0.4); Eosinophils Percent Auto 3.5 % (0-4); Hematocrit 40.2 % (42.0-52.0); Imm Gran Abs Auto 0.03 X10*3/uL (0.00-0.03); Imm Gran Pct Auto 0.4 % (0.0-0.4); Lymphocytes Percent Auto 35.6 % (20-40); Mean Corpuscular HGB Conc 34.8 g/dl (31.0-36.0); Mean Corpuscular Hemoglobin 30.3 pg (27.0-33.0); Mean Platelet Volume 11.8 fL (9.4-12.4); Monocytes Absolute Auto 0.8 X10*3/uL (0.1-1.2); Monocytes Percent Auto 9.3 % (2-11); Neutrophils Absolute Auto 4.3 x10*3/uL (2.0-8.3); Neutrophils Percent Auto 50.5 % (45-73); Platelet Count 142 X10*3/uL (160-400); Red Blood Count 4.62 X10*6/uL (4.60-5.80); Red Cell Distribution Width 12.7 % (11.0-16.0); White Blood Count 8.5 X10*3/uL (4.8-10.8)
[2024-05-11 19:25] LABS: Partial Thromboplastin Time 27.8 SEC (26.0-36.8)
[2024-05-11 19:28] LABS: Alanine Aminotransferase 13 U/L (0-40); Albumin Level 4.2 g/dL (3.5-5.0); Alkaline Phosphatase 75 U/L (39-117); Anion Gap 9 (12-20); Aspartate Amino Transferase 22 U/L (5-37); Bilirubin Total 0.9 mg/dL (0.0-1.0); Blood Urea Nitrogen 13 mg/dL (9-16); Calcium 9.9 mg/dL (8.4-10.2); Carbon Dioxide 25 mmol/L (22-29); Chloride 110 mmol/L (96-108); Creatinine Clr Calc Pharmacy 67.7; Estimated Glomerular Filt Rate > 60; Glucose Random 112 mg/dL (60-115); Lipase 20 U/L (8-78); Potassium 3.3 mmol/L (3.3-5.1); Sodium 141 mmol/L (135-145); Total Protein 7.1 g/dL (6.5-8.0)
[2024-05-11 19:29] LABS: Lactic Acid 1.3 mmol/L (0.5-2.0)
--- NOTE | 2024-05-11 19:34 | MHC.EDTECH ---
EKG delayed from previous shift due to patient being uncooperative and agitated. This tech attempted to perform EKG and patient was agreeable to.
[2024-05-11] MEDS: ondansetron HCL 4 MG/2 ML VIAL IVPUSH (19:55)
[2024-05-11] MEDS: Morphine Sulfate 4 MG/ML CARTRIDGE IVPUSH ×2 (19:55→22:29)
[2024-05-11] MEDS: 0.9 % Sodium Chloride 1,000 ML 999 ML IV (20:02)
[2024-05-11 20:15] VITALS: BP 159/66; PULSE 58; RESP 18; TEMP 36.7; O2SAT 97
[2024-05-11] MEDS: iohexoL 350 MG/ML 100 ML INFUS..BTL IV (20:29)
[2024-05-11 21:46] LABS: Troponin-I High Sensitivity 70.3 ng/L (<3.5-35.0)
--- NOTE | 2024-05-11 22:44 | PC.NURSE ---
This com writer assumed care of this Pt at 1900. Pt agreeable to IV insertion at this time. 22g IV to right arm. Meds given per MAR, Pt reports no affectiveness. 2239: Attempt made to perform med rec, Pt became upset, verbal abusive stating are you stupid, I take 26 meds, I don't know, [facility] . Pt not easily redirectable, other staff involved.
[2024-05-12] MEDS: Morphine Sulfate Immed Release 15 MG TABLET PO ×4 (03:18→21:15)
--- NOTE | 2024-05-12 03:24 | PC.NURSE ---
pt awake, sitting at the edge of the bed. Pt requesting pain medication for 10/10 all over body pain. Upon medicating Pt, Pt upset states yelling why is it a pill and not IV, what kind of hospital is this . Pt educated on reasoning and was agreeable to take med per MAR.
[2024-05-12] MEDS: Ondansetron ODT 4 MG TAB.RAPDIS TRANSLINGU (03:38)
[2024-05-12 03:40] VITALS: BP 178/81; PULSE 61; RESP 20; O2SAT 97
[2024-05-12 07:43] VITALS: BP 178/81; PULSE 61; O2SAT 97
[2024-05-12 08:00] VITALS: BP 171/96; PULSE 68; RESP 16; O2SAT 98
[2024-05-12 08:24] LABS: COVID-19 Test Negative (Negative); IDNOW Serial# 58CA691E
--- NOTE | 2024-05-12 08:38 | PC.NURSE ---
Pt reporting he has been feeling depressed, adamantly denying SI or HI. Wanting help with medication for depression. CM and provider alerted, care team consult placed by provider
--- NOTE | 2024-05-12 10:21 | MHC.CARE ---
A CARE team consult was placed to clear Pt psychiatrically. This was placed at the request of the short term rehab that the Pt is being referred to. Pt endorses depression secondary to his living situation at this time. Pt currently is not able to ambulate easily and has not for weeks. He is not able to leave his home, has not eaten in weeks; lost 20 lbs in 2 weeks, and only has old food in his refrigerator. Pt reported his heat is also not working. He is a [place] and attempted to navigate [facility]. Pt was reportedly told a nurse could come into the home however there was no follow up for an unknown reason. Pt has no friends or family that are alive and has difficulty navigating and accessing these resources on his own. Pt denies SI, HI, and A/V/H. Pt has no HX of suicide attempts or psychiatric concerns. Pt is cleared by the CARE team for a referral to STR at this time.
--- NOTE | 2024-05-12 10:44 | MHC.CM.ED ---
Received case management consult overnight. Patient came to the ER due to back pain. Work up essentially negative. Physical therapy eval completed. Short term rehab is recommended. Spoke with [facility] the [facility]. Patient is service contacted and eligible for [facility] from the [facility]. Copy of HCP and last PCP note obtained from the [facility]. Patient has a history of PTSD and receives outpatient psych services to manage this. Met with patient in regards to discharge planning. Patient ambulates independently and uses a cane for mobility. Patient was at [facility] and [facility] [place] in the past for STR. [facility] is now closed. Patient does not want to return to [facility]. Referral broadcasted to all facilities within 25 miles of patient's home to all facilities that are contracted with the [facility]. [facility] [address] and [facility] are able to offer a bed. Patient accepts a bed at [facility]. Facility made aware and will obtain insurance auth. Clinicals faxed to [facility] the [facility] so their provider can start auth on their end. Continue to monitor for d/c needs.
--- NOTE | 2024-05-12 11:47 | PC.NURSE ---
Pt provided with self-care items per his request to brush teeth and all. PHARMACY CONTACTED FOR HELP WITH MED [facility], reported they will send someone to do it.
--- NOTE | 2024-05-12 12:41 | MHC.CM.ED ---
Patient transferred to overflow unit. Per Belkis RN, patient requesting [facility] [address] as first choice. [facility] still has a bed available and is able to offer a bed. [facility] made aware. [facility]ed to [facility]. Left a voicemail explaining patient has decided to accept bed at [facility]. [facility] also aware. Continue to monitor for d/c needs.
--- NOTE | 2024-05-12 13:11 | PHA.MEDREC ---
Pharmacy Consult ? Medication Reconciliation Pharmacy has completed the medication reconciliation, utilized list from [place].
--- NOTE | 2024-05-12 16:18 | PC.NURSE ---
Pt moved to bed 6 I like it to be dark and quiet pt educated regarding using call amaya, encouraged to ask for assistance, bed alarm activated
[2024-05-12 16:22] VITALS: BP 174/76; PULSE 62; RESP 16; TEMP 36.7; O2SAT 97
--- NOTE | 2024-05-12 16:24 | MHC.EDTECH ---
This pct assumed care of Patient at 1500 ,vitals taken ,pt is alert and oriented ,Pt refused bed alarm ,RN aware .
[2024-05-12] MEDS: Acetaminophen 325 MG TABLET 650 MG PO (17:09)
[2024-05-12] MEDS: Atorvastatin Calcium 40 MG TABLET PO (17:45)
[2024-05-12] MEDS: Gabapentin 600 MG TABLET 900 MG PO ×2 (17:45→20:58)
[2024-05-12] MEDS: Aspirin Enteric Coated 81 MG TABLET.DR PO (17:45)
[2024-05-12] MEDS: Isosorbide Mononitrate 30 MG TAB.ER.24H PO (17:45)
[2024-05-12] MEDS: Insulin Glargine,Hum.rec.anlog 100 UNIT/ML 10 ML VIAL 60 UNIT SUBCUT (17:47)
[2024-05-12 17:48] LABS: Glucose, Whole Blood 160 mg/dL (60-115)
[2024-05-12] MEDS: Tamsulosin HCL 0.4 MG CAPSULE PO (18:05)
--- NOTE | 2024-05-12 20:45 | MHC.EDTECH ---
this tech answered call amaya to pt requesting ice for his pitcher of water. two cups of ice were brought over to pt and was poured into water pitcher for pt. pt then got angry and stated that I performed that task incorrectly and then said grab someone else to do it, wong ONTIVEROS made aware
--- NOTE | 2024-05-12 20:52 | PC.NURSE ---
Patient asked for water and ice and when tech brought in water and ice proceeded to call her a fucking bitch because it wasn't correct. THis video game script writer informed patient that the language used by him towards staff would not be tolerated. Patient apologozied
[2024-05-12 20:56] VITALS: BP 198/85; PULSE 75; RESP 20; TEMP 36.7; O2SAT 96
[2024-05-12 20:57] VITALS: BP 198/85; PULSE 75
[2024-05-12] MEDS: metFORMIN HCl 500 MG TABLET PO (20:57)
[2024-05-12] MEDS: Metoprolol Tartrate 50 MG TABLET PO (20:57)
[2024-05-12] MEDS: traZODone HCL 100 MG TABLET PO (20:58)
[2024-05-12] MEDS: Apixaban 5 MG TABLET PO (20:58)
[2024-05-12] MEDS: Divalproex Sodium ER 500 MG TAB.ER.24H 1000 MG PO (21:16)
[2024-05-12] MEDS: oxyBUTYnin chloride 5 MG TABLET PO (21:16)
[2024-05-12] MEDS: QUEtiapine Fumarate 100 MG TABLET PO (21:16)
--- NOTE | 2024-05-12 22:53 | PC.NURSE ---
Patient specifically requesting MD Rosa made aware and stated that Tylenol and morphine were the options available for pain relief. Patient unsatisfied with this answer and asked for security to be called. Security present at the bedside at this time. Patient also requesting phone, explained to patient we only have corded phones at this time. will try to gt wheelchair to accommodate use of corded phone. Again, paint stomping cane on ground and raising voice to staff.
[2024-05-13] MEDS: Morphine Sulfate Immed Release 15 MG TABLET PO ×2 (02:09→06:12)
[2024-05-13] MEDS: Acetaminophen 325 MG TABLET 650 MG PO ×2 (02:10→06:10)
[2024-05-13 04:17] VITALS: BP 112/59; PULSE 55; RESP 18; TEMP 36.6; O2SAT 95
--- NOTE | 2024-05-13 07:30 | PC.NURSE ---
Patient alert and oriented, in-patient and demanding when requesting medications or snacks and water. Difficult to redirect, assisted with care, safe on R/A, medicated per MAR. No distress observe
[2024-05-13 08:06] LABS: Glucose, Whole Blood 116 mg/dL (60-115)
[2024-05-13] MEDS: HYDROmorphone HCl 2 MG TABLET 4 MG PO (10:10)
[2024-05-13 10:11] VITALS: BP 112/59
[2024-05-13] MEDS: Docusate Sodium 100 MG CAPSULE PO (10:11)
[2024-05-13] MEDS: Furosemide 40 MG TABLET PO (10:11)
[2024-05-13] MEDS: Aspirin Enteric Coated 81 MG TABLET.DR PO (10:11)
[2024-05-13] MEDS: Atorvastatin Calcium 40 MG TABLET PO (10:11)
[2024-05-13 10:12] VITALS: BP 112/59; PULSE 55
[2024-05-13] MEDS: Metoprolol Tartrate 50 MG TABLET PO (10:12)
[2024-05-13] MEDS: Gabapentin 600 MG TABLET 900 MG PO (10:12)
[2024-05-13] MEDS: Tamsulosin HCL 0.4 MG CAPSULE PO (10:12)
[2024-05-13] MEDS: metFORMIN HCl 500 MG TABLET PO (10:12)
[2024-05-13 10:14] VITALS: BP 115/59
[2024-05-13] MEDS: Insulin Glargine,Hum.rec.anlog 100 UNIT/ML 10 ML VIAL 60 UNIT SUBCUT (10:14)
[2024-05-13] MEDS: Apixaban 5 MG TABLET PO (10:14)
[2024-05-13] MEDS: Isosorbide Mononitrate 30 MG TAB.ER.24H PO (10:14)
[2024-05-13] MEDS: polyethylene glycoL 3350 17 GM POWD.PACK PO (10:15)
--- NOTE | 2024-05-13 10:17 | MHC.CM.PN ---
[facility] auth obtained. Patient will dc to [facility]. Patient, RN and PA aware.
[2024-05-13 10:25] VITALS: BP 133/63; PULSE 55; RESP 16; TEMP 36.6; O2SAT 94
[2024-05-13 11:23] LABS: Glucose, Whole Blood 115 mg/dL (60-115)
[2024-05-13 12:17] VITALS: BP 187/78; PULSE 66; RESP 16; TEMP 36.8; O2SAT 96
== END 2024-05-13 12:18 | disposition skilled nursing facility (03) ==
PROVIDERS: Emergency Provider Emergency Medicine Emergency Medical Services; PCP Internal Medicine
DX: M54.50 Low back pain, unspecified (principal); R10.2 Pelvic and perineal pain; R00.1 Bradycardia, unspecified; E11.9 Type 2 diabetes mellitus without complications; R11.0 Nausea; R07.89 Other chest pain; I10 Essential (primary) hypertension; I25.10 Atherosclerotic heart disease of native coronary artery without angina pectoris; R26.2 Difficulty in walking, not elsewhere classified; Z79.4 Long term (current) use of insulin; Z79.899 Other long term (current) drug therapy; Z11.52 Encounter for screening for COVID-19
CPT/HCPCS: 36415; 74177; 80053; 82947; 83605; 83690; 84484; 85025; 85730; 87040; 87635; 93005; 96361; 96374; 96375; 96376; 97162; 99285; J2270; J2405; Q9967

== ENCOUNTER → 2024-05-11 18:06 | Outpatient (BNV) | payer OTHER, SELFPAY | PROVIDERS: Emergency Provider Emergency Medicine Emergency Medical Services; Visit Provider Internal Medicine Cardiovascular Disease | DX: R00.1 Bradycardia, unspecified (principal); R07.9 Chest pain, unspecified | CPT/HCPCS: 93010 ==

== ENCOUNTER 2024-05-13 14:57 | Emergency (ER) | payer MEDICARE, SELFPAY ==
--- NOTE | ~2024-05-13 | XR_ITS ---
EXAMINATION: XR ABDOMEN 1 VIEW (KUB) HISTORY: n/v COMPARISON: There are no prior studies for comparison. FINDINGS: Three supine portable views of the abdomen performed at 3:31 PM are submitted. The bowel gas pattern is unremarkable, without evidence of mechanical obstruction. No abnormal calcifications are identified. There are no abnormal soft tissue masses. The bones are intact. XR/XR KUB IMPRESSION: Unremarkable bowel gas pattern. Electronically signed by: Brandon Penn MD 05/19/2024 03:56 PM JORDI
[2024-05-13 15:09] VITALS: BP 150/76; PULSE 58; O2SAT 98
[2024-05-13 15:12] VITALS: BP 142/54; PULSE 60; RESP 16; TEMP 36.7; O2SAT 95; BMI 31.2
--- NOTE | 2024-05-13 15:24 | PC.NURSE ---
able to stand with one assist to use bedside urinal, uses cane for ambulation
--- NOTE | 2024-05-13 15:53 | ED_ITS ---
HPI - General Adult General Chief complaint: General Medical Stated complaint: COMING FROM SNF SEEKING NEW FACILITY,RCT DISCHARGE Time Seen by Provider: 05/13/24 15:53 Source: patient and EMS Mode of arrival: EMS Limitations: no limitations History of Present Illness ED Provider: DUDLEY TOPETE PA-C HPI narrative: 74 year old male insulin-dependent diabetes mellitus, congestive heart failure with preserved ejection fraction, coronary artery disease, hypertension, mood disorder, BPH, irritable bowel syndrome, chronic pain syndrome presents to the emergency department today 2 hours after being discharged from our facility. Patient was in our ED over the last few days for evaluation of multiple concerns, primarily pain throughout his entire body. While here, he was treated with morphine every 4 hours. He was evaluated by physical therapy and case management and was discharged to [facility] earlier today after receiving a 1 time dose of Dilaudid prior to discharge. Patient states that upon arriving at [facility], he was unhappy with the facilities. He states that he was in his room for approximately 2 hours before anyone tended to him. He states that he did not receive any pain medication there. Reports frustration with receiving morphine as Dilaudid is the only medication that helps with his pain. He states he was given a dose of Dilaudid prior to leaving our facility. His only concern at present is pain to his entire body. He ambulates with a cane at baseline. No falls since discharge. No change in pain since discharge. Related Data Home Medications ?Medication ?Instructions ?Recorded ?Confirmed divalproex 500 mg tablet,extended 1,000 mg PO BEDTIME 10/24/23 05/13/24 release 24 hr furosemide 40 mg tablet 40 mg PO DAILY 10/24/23 05/13/24 gabapentin 600 mg tablet 900 mg PO TID 10/24/23 05/13/24 isosorbide mononitrate 30 mg 30 mg PO DAILY 10/24/23 05/13/24 tablet,extended release 24 hr metformin 500 mg tablet 500 mg PO BID 10/24/23 05/13/24 oxybutynin chloride 5 mg tablet 5 mg PO BEDTIME 10/24/23 05/13/24 quetiapine 100 mg tablet 100 mg PO BEDTIME 10/24/23 05/13/24 tamsulosin 0.4 mg capsule 0.4 mg PO DAILY 10/24/23 05/13/24 tizanidine 2 mg tablet 2 mg PO TID PRN muscle spasms 10/24/23 05/13/24 apixaban 5 mg tablet 5 mg PO BID 05/12/24 05/13/24 aspirin 81 mg tablet,delayed 81 mg PO DAILY 05/12/24 05/13/24 release atorvastatin 40 mg tablet 40 mg PO DAILY 05/12/24 05/13/24 insulin glargine 100 unit/mL (3 60 unit subcut DAILY 05/12/24 05/13/24 mL) subcutaneous pen (Lantus Solostar U-100 Insulin) metoprolol tartrate 25 mg tablet 50 mg PO BID 05/12/24 05/13/24 trazodone 100 mg tablet 100 mg PO BEDTIME 05/12/24 05/13/24 acetaminophen 500 mg tablet 1,000 mg PO Q6H 05/13/24 05/13/24 Previous Rx's ?Medication ?Instructions ?Recorded morphine 15 mg immediate release 15 mg PO Q4H PRN severe pain 05/13/24 tablet (scale score 7-10) #20 tabs Allergies Allergy/AdvReac Type Severity Reaction Status Date / Time dicyclomine [From Bentyl] Allergy Unknown Verified 05/13/24 15:12 mepivacaine Allergy Unknown Verified 05/13/24 15:12 Review of Systems 2 Review of Systems: Constitutional: No fever, chills, fatigue, night sweats, weight changes ENT/Mouth: No ear pain, hearing loss, nasal congestion, sinus pain, rhinorrhea, sore throat Eyes: No eye pain, swelling, redness, vision changes, discharge Cardio: No chest pain, palpitations, ANGULO, orthopnea, peripheral edema Pulm: No SOB, cough, sputum, wheezing, dyspnea, hemoptysis GI: No nausea, vomiting, hematemesis, abdominal pain, diarrhea, constipation, hematochezia, melena : No irregular bleeding, dysuria, frequency, urgency, hesitancy, hematuria, flank pain, urinary flow changes, urinary incontinence or retention MSK: No back pain, neck pain, joint pain, +myalgias Skin: No lesions, rashes Neuro: No weakness, numbness, paresthesias, LOC, dizziness, headache Psych: No anxiety/panic, depression, SI/HI, AH/VH All other systems reviewed and are negative. PMFSH Past Medical History Attestation statement: The following information was validated with the patient. Source: old records reviewed and nursing notes reviewed Medical History Chronic diastolic heart failure PTSD (post-traumatic stress disorder) Coronary artery disease Diabetes mellitus Hypertension Irritable bowel syndrome Social History Social History Household Members: None Housing: Apartment Do you presently have visiting nurse or other home services: Yes ([facility] weekly) Alcohol intake: former Comment: refused bed alarm Patient Tobacco Use Status: Former Tobacco user Tobacco use type: Cigarette Smoked in Last 30 Days: No Use of substances other than those prescribed or required for medical reasons: No Advance Directives: Yes Advance Directives on File: Yes Advance Directives Date on File: 05/12/24 Do you have a plan to hurt others: No Plan service: Yes Physical Exam ED Vital Signs: Vital Signs - 24 hr 05/13/24 15:12 05/13/24 16:38 05/13/24 19:28 Temperature 98.0 F 98.6 F 98.0 F Pulse Rate 60 57 56 Respiratory Rate 16 16 16 Blood Pressure 142/54 H 119/56 L 133/60 Pulse Oximetry 95 96 97 Oxygen Delivery Method Room Air Room Air Room Air BMI result Body Mass Index 31.2 hypertensive, vitals otherwise wnl General: Well appearing, in no acute distress. Skin: Warm, dry, intact. No rashes or lesions. Head: Normocephalic, atraumatic. EENT: Hearing is intact b/l. Conjunctiva clear. Sclera is anicteric. PERRLA. EOM intact. Moist mucous membranes.? Neck: Supple without LAD Cardiac: Chest wall symmetric. RRR. Lungs: Normal respiratory effort without accessory muscle use. CTA bilaterally. Abdomen: Soft, non-tender, non-distended. No rebound tenderness or guarding. Positive BS x4. Back: No midline spinous or paraspinal tenderness. No step off deformity. Ext: Upper and lower extremities atraumatic, without tenderness, deformity, swelling or erythema. Full ROM throughout. Neuro: AOx3. Normal speech. CN 2-12 grossly intact. Strength 5/5 intact throughout. Sensation intact to light touch. NV intact distally. Ambulating with steady gait. assisted by cane. Psych: Appropriate mood and affect. Responds appropriately to questions. Course Course Course Narrative: 2017 -- CBC without leukocytosis or left shift. Normocytic anemia, H & H stable when compared to priors and above transfusion threshold. Chemistry without acute electrolyte abnormality requiring intervention. No JESUS. Random glucose 119. Liver function WNL. Urine without infection. > PO morphine ordered q4 for chronic pain. I do not feel as though dilaudid is warranted at this time. > physician observation initiated at this time pending PT/case management and disposition Medications Administered Generic Name Dose Route Start Last Admin Trade Name Freq PRN Reason Stop Dose Admin Morphine Sulfate 15 mg 05/13/24 16:25 05/13/24 16:50 Morphine Sulfate Immed Release 15 Mg Tablet PO 15 mg Q4H PRN Administration Pain, Severe (Pain Scale 7-10) Medical Decision Making Medical Decision Making [facility] Narrative: 74 year old male insulin-dependent diabetes mellitus, congestive heart failure with preserved ejection fraction, coronary artery disease, hypertension, mood disorder, BPH, irritable bowel syndrome, chronic pain syndrome presents to the emergency department today 2 hours after being discharged from our facility. hypertensive, vitals are otherwise wnl. he is nontoxic appearing and in NAD. sitting comfortably on the exam bed, eating crackers. physical exam benign. Differential diagnosis includes anemia, electrolyte abnormality, dehydration, chronic pain. Plan for basic labs, EKG, PT/CM consultation. Differential Diagnosis Differential Diagnoses: The differential diagnosis associated with the presentation includes as above. Admission/Observation not indicated. Lab Data [facility] Lab Attestation statement: I reviewed the patient's lab results. as above. 05/13/24 17:19 05/13/24 17:19 Labs: Lab Results 05/13/24 05/13/24 Range/Units 16:50 17:19 WBC 9.6 (4.8-10.8) X10*3/uL RBC 4.23 L (4.60-5.80) X10*6/uL Hgb 12.7 L (14.0-18.0) g/dl Hct 37.1 L (42.0-52.0) % MCV 87.7 (80.0-98.0) fL MCH 30.0 (27.0-33.0) pg MCHC 34.2 (31.0-36.0) g/dl RDW 12.9 (11.0-16.0) % Plt Count 130 L (160-400) X10*3/uL MPV 11.7 (9.4-12.4) fL Immature Gran % (Auto) 0.2 (0.0-0.4) % Neut % (Auto) 47.3 (45-73) % Lymph % (Auto) 39.5 (20-40) % [place] % (Auto) 7.4 (2-11) % Eos % (Auto) 4.8 H (0-4) % Baso % (Auto) 0.8 (0-2) % Lymph # (Auto) 3.8 (1.2-4.9) X10*3/uL [place] # (Auto) 0.7 (0.1-1.2) X10*3/uL Eos # (Auto) 0.5 H (0.0-0.4) X10*3/uL Baso # (Auto) 0.1 (0.0-0.2) X10*3/uL Abs Immat Gran (auto) 0.02 (0.00-0.03) X10*3/uL Absolute Neuts (auto) 4.5 (2.0-8.3) x10*3/uL Absolute Nucleated RBC 0.000 (0.0-0.012) X10*3/uL Nucleated RBC % (auto) 0.0 (0.0-0.2) /100WBC Sodium 142 (135-145) mmol/L Potassium 3.7 (3.3-5.1) mmol/L Chloride 108 (96-108) mmol/L Carbon Dioxide 27 (22-29) mmol/L Anion Gap 11 L (12-20) BUN 9 (9-16) mg/dL Creatinine 0.92 (0.5-1.4) mg/dL Estim Creat Clear Calc 77.9 Estimated GFR > 60 Random Glucose 119 H (60-115) mg/dL Calcium 9.3 D (8.4-10.2) mg/dL Total Bilirubin 0.6 (0.0-1.0) mg/dL AST 22 (5-37) U/L ALT 7 (0-40) U/L Alkaline Phosphatase 61 (39-117) U/L Total Protein 6.2 L (6.5-8.0) g/dL Albumin 3.6 (3.5-5.0) g/dL Urine Color Yellow Urine Appearance Clear Urine pH 5.5 (5.0-9.0) Ur Specific [place] <= 1.005 (1.005-1.025) Urine Protein Negative (Neg-Trace) mg/dL Urine Glucose (UA) Negative (Negative) mg/dL Urine Ketones Negative (Negative) mg/dL Urine Blood Negative (Negative) Urine Nitrite Negative (Negative) Ur Leukocyte Esterase Trace H (Negative) Urine RBC 0-2 (0-2) /HPF Urine WBC 0-5 (0-5) /HPF Ur Squamous Epith Cells 0-2 (0-2) /HPF Urine Bacteria None Seen (None Seen) Hyaline Casts 0-2 (0-2) /LPF Independent Historian Clinical information obtained from an independent historian. History obtained from or confirmed by: EMS External Record Review External record reviewed: Inpatient record Prescription Management I considered prescription management with: Pain Medication Chronic Conditions Patient?s care impacted by: Other (mood disorder, chronic pain syndrome) Social Determinants Patient?s care significantly limited by Social Determinants of Health including: Other Social Determinant of Health Critical Care Time Critical Care Time Critical Care Time: No Discharge Plan Discharge Clinical Impression: Chronic pain Patient Disposition: Still a Patient Prescriptions: No Action apixaban 5 mg Tablet 5 mg PO BID atorvastatin 40 mg Tablet 40 mg PO DAILY aspirin 81 mg Tablet,Delayed Release (Dr/Ec) 81 mg PO DAILY trazodone 100 mg Tablet 100 mg PO BEDTIME metoprolol tartrate 25 mg tablet 50 mg PO BID Protocol: Hold for SBP/HR < HOLD for SBP < : 90 HOLD for HR < : 60 insulin glargine [Lantus Solostar U-100 Insulin] 100 unit/mL (3 mL) insulin pen 60 unit SUBCUT DAILY morphine 15 mg tablet 15 mg PO Q4H PRN (Reason: severe pain (scale score 7-10)) Qty: 20 0RF Rx Instructions: Partial Fill upon patient request. furosemide 40 mg Tablet 40 mg PO DAILY metformin 500 mg Tablet 500 mg PO BID gabapentin 600 mg Tablet 900 mg PO TID Rx Instructions: 1 and 1/2 tablets TID tizanidine 2 mg Tablet 2 mg PO TID PRN (Reason: muscle spasms) isosorbide mononitrate 30 mg Tablet Extended Release 24 Hr 30 mg PO DAILY quetiapine 100 mg Tablet 100 mg PO BEDTIME tamsulosin 0.4 mg Capsule 0.4 mg PO DAILY oxybutynin chloride 5 mg Tablet 5 mg PO BEDTIME divalproex 500 mg Tablet Extended Release 24 Hr 1,000 mg PO BEDTIME acetaminophen 500 mg tablet 1,000 mg PO Q6H Print Language: Hungarian
--- NOTE | 2024-05-13 16:15 | MHC.CM.PN ---
Addendum entered by Shreya Lindquist RN 05/13/24 16:17: PA aware of facility requests. Original Note: Patient dc'd to [facility] earlier today for STR. Per facility, patient became escalated over his pain meds and requested to be sent back to [facility]. Per liaison, requesting psych constult and that patient's behaviors be monitored through the weekend. Anticipate formal CM consult when appropriate.
[2024-05-13 16:38] VITALS: BP 119/56; PULSE 57; RESP 16; TEMP 37; O2SAT 96
[2024-05-13] MEDS: Morphine Sulfate Immed Release 15 MG TABLET PO (16:50)
[2024-05-13 17:06] LABS: Appearance Urine Clear; Color Urine Yellow; Glucose Urine UA Negative (Negative); Leukocyte Esterase Urine Trace (Negative); Nitrite Urine Negative (Negative); PH 5.5 (5.0-9.0); Specific Gravity - Urine <= 1.005 (1.005-1.025); UMIC TRIGGER UACC YES; Urine Blood Negative (Negative); Urine Ketones Negative (Negative); Urine Protein Negative (Neg-Trace)
[2024-05-13 17:10] LABS: Bacteria Urine None Seen (None Seen); Hyaline Casts Urine 0-2 /LPF (0-2); RBC Urine 0-2 /HPF (0-2); Squamous Epithelial Cell Urine 0-2 /HPF (0-2); WBC Urine 0-5 /HPF (0-5)
[2024-05-13 17:24] LABS: MANUAL DIFF FLAG NO
[2024-05-13 17:28] LABS: Basophils Absolute Auto 0.1 X10*3/uL (0.0-0.2); Basophils Percent Auto 0.8 % (0-2); Eosinophils Absolute Auto 0.5 X10*3/uL (0.0-0.4); Eosinophils Percent Auto 4.8 % (0-4); Hematocrit 37.1 % (42.0-52.0); Hemoglobin 12.7 g/dl (14.0-18.0); Imm Gran Abs Auto 0.02 X10*3/uL (0.00-0.03); Imm Gran Pct Auto 0.2 % (0.0-0.4); Lymphocytes Absolute Auto 3.8 X10*3/uL (1.2-4.9); Lymphocytes Percent Auto 39.5 % (20-40); Mean Corpuscular HGB Conc 34.2 g/dl (31.0-36.0); Mean Corpuscular Volume 87.7 fL (80.0-98.0); Mean Platelet Volume 11.7 fL (9.4-12.4); Monocytes Absolute Auto 0.7 X10*3/uL (0.1-1.2); Monocytes Percent Auto 7.4 % (2-11); Neutrophils Absolute Auto 4.5 x10*3/uL (2.0-8.3); Neutrophils Percent Auto 47.3 % (45-73); Platelet Count 130 X10*3/uL (160-400); Red Blood Count 4.23 X10*6/uL (4.60-5.80); Red Cell Distribution Width 12.9 % (11.0-16.0); White Blood Count 9.6 X10*3/uL (4.8-10.8)
[2024-05-13 17:40] LABS: Alanine Aminotransferase 7 U/L (0-40); Albumin Level 3.6 g/dL (3.5-5.0); Alkaline Phosphatase 61 U/L (39-117); Anion Gap 11 (12-20); Aspartate Amino Transferase 22 U/L (5-37); Bilirubin Total 0.6 mg/dL (0.0-1.0); Blood Urea Nitrogen 9 mg/dL (9-16); Calcium 9.3 mg/dL (8.4-10.2); Carbon Dioxide 27 mmol/L (22-29); Chloride 108 mmol/L (96-108); Creatinine Clr Calc Pharmacy 77.9; Estimated Glomerular Filt Rate > 60; Glucose Random 119 mg/dL (60-115); Potassium 3.7 mmol/L (3.3-5.1); Sodium 142 mmol/L (135-145); Total Protein 6.2 g/dL (6.5-8.0)
--- NOTE | 2024-05-13 18:03 | MHC.EDTECH ---
pt has $1852 muller in him, advised to put that in a locker with security, does not want to do it
[2024-05-13 19:28] VITALS: BP 133/60; PULSE 56; RESP 16; TEMP 36.7; O2SAT 97
[2024-05-13] MEDS: Gabapentin 600 MG TABLET 900 MG PO (21:37)
[2024-05-13] MEDS: metFORMIN HCl 500 MG TABLET PO (21:38)
[2024-05-13] MEDS: Acetaminophen 325 MG TABLET 650 MG PO (21:38)
[2024-05-13] MEDS: oxyBUTYnin chloride 5 MG TABLET PO (21:38)
[2024-05-13] MEDS: Melatonin 3 MG TABLET 6 MG PO (21:38)
[2024-05-13] MEDS: QUEtiapine Fumarate 100 MG TABLET PO (21:39)
[2024-05-13] MEDS: Apixaban 5 MG TABLET PO (21:40)
[2024-05-13] MEDS: Divalproex Sodium ER 500 MG TAB.ER.24H 1000 MG PO (21:40)
[2024-05-13] MEDS: traZODone HCL 100 MG TABLET PO (21:40)
[2024-05-13] MEDS: Metoprolol Tartrate 50 MG TABLET PO (21:40)
--- NOTE | 2024-05-13 21:51 | MHC.EDTECH ---
Patient refused bed alarm ,RN aware .
[2024-05-14 05:49] VITALS: BP 150/68; PULSE 62; RESP 16; TEMP 36.7; O2SAT 96
--- NOTE | 2024-05-14 05:51 | PC.NURSE ---
Pt in bed, alert and oriented X4, agitated, yells at staff when any task or care needs to be completed. Pt refusing bed alam and adamant that he sanchez the side rail down in bed. Pt refuse to have bed alarm on. Pt visualized ambulating in room independently with cane with steady gait
[2024-05-14] MEDS: Tamsulosin HCL 0.4 MG CAPSULE PO (09:27)
[2024-05-14] MEDS: Isosorbide Mononitrate 30 MG TAB.ER.24H PO (09:27)
[2024-05-14] MEDS: metFORMIN HCl 500 MG TABLET PO ×2 (09:27→20:09)
[2024-05-14] MEDS: Aspirin Enteric Coated 81 MG TABLET.DR PO (09:28)
[2024-05-14] MEDS: Insulin Glargine,Hum.rec.anlog 100 UNIT/ML 10 ML VIAL 60 UNIT SUBCUT (09:28)
[2024-05-14] MEDS: Gabapentin 600 MG TABLET 900 MG PO ×3 (09:28→20:09)
[2024-05-14] MEDS: Apixaban 5 MG TABLET PO ×2 (09:28→20:09)
[2024-05-14] MEDS: Furosemide 40 MG TABLET PO (09:28)
[2024-05-14] MEDS: Atorvastatin Calcium 40 MG TABLET PO (09:28)
[2024-05-14] MEDS: Acetaminophen 325 MG TABLET 650 MG PO ×3 (09:28→20:08)
[2024-05-14] MEDS: Metoprolol Tartrate 50 MG TABLET PO ×2 (09:28→20:09)
[2024-05-14 09:49] LABS: Glucose, Whole Blood 103 mg/dL (60-115)
--- NOTE | 2024-05-14 09:52 | PC.NURSE ---
Addendum entered by Rodrigo Bocanegra RN 05/15/24 09:10: pt requested prn meds for pain, muscle spasms and constipation. pt informed the meds he is getting and was educated. pt was adamant on taking all his meds Original Note: pt stated he still takes lantus at home with a sugar in the low 100's. pt requested to have it administered and will have snacks
--- NOTE | 2024-05-14 10:59 | MHC.CM.ED ---
Patient remains in ER overflow. Patient was d/c'd to [facility] on [address] on 05/13 at 12pm. Patient returned to ER at 330pm. Patient does not want to return. Care Team consult is pending. Will be needed for [facility] PASRR Level 2. [facility] refer to [facility]. [facility] is service connected and [facility]. Continue to monitor for d/c needs.
--- NOTE | 2024-05-14 11:10 | P.CNPS_ITS ---
History of Present Illness Date of Service: 05/14/2024 Chief Complaint: COMING FROM SNF SEEKING NEW FACILITY,RCT DISCHARGE Reason for Consult: Case Mgt Request per team Requesting physician: Didi Padilla Sources of Information: patient interviewed and chart reviewed HPI Narrative: 74 yo male, history of chronic diastolic heart failure, IDDM, CHF with preserved EF, CAD, HTN, BPH, IBS, chronic pain and mood disorder. Pt to ER 05/11 with reports of abdominal, back and bilateral shoulder pain. Pt was medically cleared, pain mgt was implemented and pt was discharged on 05/13 to [facility]. He reports being there for ~2 hours, not being seen or assessed for medicine, so he requested to return to ER for alternative planning. They paid no attention to me. Pt reports he is a ([facility]). He tells team that due to mobility issues he has been unable to care for himself properly and purchase needed food and supplies to live reasonably. He reports no available family or contacts. He does have [place] contacts- ([facility]) for psychiatry he has not called me in two weeks and Dr. Samaniego for primary care. Pain mgt and home care [facility] fell through . Pt reports non compliance with psychiatric meds for a few weeks prior to [facility] [place] (Depakote 750 mg HS and Seroquel 100 mg HS. Pt reports depression is severe for the past few weeks due to pain and incapacity. Reports pain all over his body, I can barely move -abdominal, bilateral shoulder, chest intermittently, pilonidal. Pt is able to identify goals as to have less pain, less depression and to have a rehab plan of care for increased independence Past Psychiatric History: IP: Denies OP: [facility], Dr. Pedraza (unavailable today) Medical Evaluation Reviewed: Yes Review of Systems Review of Systems Refer to [facility] Medical History (Updated 05/14/24 @ 19:15 by Mitra Rinaldi APRN) Mood disorder Chronic diastolic heart failure PTSD (post-traumatic stress disorder) Coronary artery disease Diabetes mellitus Hypertension Irritable bowel syndrome Substance History: denies Trauma History: Diagnostics Vital Signs (24Hr): Vital Signs - 24 hr 05/13/24 15:12 05/13/24 16:38 05/13/24 19:28 Temperature 98.0 F 98.6 F 98.0 F Pulse Rate 60 57 56 Respiratory Rate 16 16 16 Blood Pressure 142/54 H 119/56 L 133/60 Pulse Oximetry 95 96 97 Oxygen Delivery Method Room Air Room Air Room Air 05/14/24 05:49 Temperature 98.0 F Pulse Rate 62 Respiratory Rate 16 Blood Pressure 150/68 H Pulse Oximetry 96 Oxygen Delivery Method Room Air BMI result Body Mass Index 31.2 Labs 05/13/24 17:19 05/13/24 17:19 Labs: Laboratory Results - last 48 hr 05/13/24 05/13/24 05/14/24 16:50 17:19 09:45 WBC 9.6 RBC 4.23 L Hgb 12.7 L Hct 37.1 L MCV 87.7 MCH 30.0 MCHC 34.2 RDW 12.9 Plt Count 130 L MPV 11.7 Immature Gran % (Auto) 0.2 Neut % (Auto) 47.3 Lymph % (Auto) 39.5 [place] % (Auto) 7.4 Eos % (Auto) 4.8 H Baso % (Auto) 0.8 Lymph # (Auto) 3.8 [place] # (Auto) 0.7 Eos # (Auto) 0.5 H Baso # (Auto) 0.1 Abs Immat Gran (auto) 0.02 Absolute Neuts (auto) 4.5 Absolute Nucleated RBC 0.000 Nucleated RBC % (auto) 0.0 Sodium 142 Potassium 3.7 Chloride 108 Carbon Dioxide 27 Anion Gap 11 L BUN 9 Creatinine 0.92 Estim Creat Clear Calc 77.9 Estimated GFR > 60 POC Glucose 103 Random Glucose 119 H Calcium 9.3 D Total Bilirubin 0.6 AST 22 ALT 7 Alkaline Phosphatase 61 Total Protein 6.2 L Albumin 3.6 Urine Color Yellow Urine Appearance Clear Urine pH 5.5 Ur Specific [place] <= 1.005 Urine Protein Negative Urine Glucose (UA) Negative Urine Ketones Negative Urine Blood Negative Urine Nitrite Negative Ur Leukocyte Esterase Trace H Urine RBC 0-2 Urine WBC 0-5 Ur Squamous Epith Cells 0-2 Urine Bacteria None Seen Hyaline Casts 0-2 EKG EKG Comment: ST-T wave abn ? Lateral ischemia QT lengthened Mental Status Exam Mental Status Exam Patient Appearance: Fatigued Patient Orientation: Person, Place, Time and Situation Level of Consciousness: Alert Patient Behavior: Appropriate, Talkative, Cooperative and Fatigued Mood Description: Depressed and Angry Affect Description: Flat Patient Cognition Impaired: No Ability to Follow Directions: Good Speech Pattern: Spontaneous Speech Memory Description: Intact Hallucinations: None Delusions: Not Present Thought Process: Rumination and Goal Oriented Thought Content: positive for Goal Oriented and positive for Suicidal Ideation (denies) Depressive Symptoms: Increased Irritability, Difficulty Sleeping, Unhappiness and Thoughts of /Suicide (denies) Abnormal Motor Activity Signs and Symptoms: Agitation Judgement: Fair Medications Medications Current Medications Acetaminophen (Acetaminophen 325 Mg Tablet) 650 mg PO QID [facility] Last Admin: 05/14/24 09:28 Dose: 650 mg Apixaban (Apixaban 5 Mg Tablet) 5 mg PO BID [facility] Last Admin: 05/14/24:28 Dose: 5 mg Aspirin (Aspirin Enteric Coated 81 Mg Tablet.Dr) 81 mg PO DAILY [facility] Last Admin: 05/14/24:28 Dose: 81 mg Atorvastatin Calcium (Atorvastatin Calcium 40 Mg Tablet) 40 mg PO DAILY [facility] Last Admin: 05/14/24 09:28 Dose: 40 mg Divalproex Sodium (Divalproex Sodium Er 500 Mg Tab.Er.24h) 1,000 mg PO BEDTIME [facility] Last Admin: 05/13/24 21:40 Dose: 1,000 mg Furosemide (Furosemide 40 Mg Tablet) 40 mg PO DAILY [facility]; Protocol Last Admin: 05/14/24:28 Dose: 40 mg Gabapentin (Gabapentin 600 Mg Tablet) 900 mg PO TID [facility] Last Admin: 05/14/24:28 Dose: 900 mg Insulin Glargine (Insulin Glargine,Hum.Rec.Anlog 100 Unit/Ml 10 Ml Vial) 60 unit SUBCUT DAILY [facility] Last Admin: 05/14/24:28 Dose: 60 unit Isosorbide Mononitrate (Isosorbide Mononitrate 30 Mg Tab.Er.24h) 30 mg PO DAILY [facility]; Protocol Last Admin: 05/14/24 09:27 Dose: 30 mg Metformin HCl (Metformin Hcl 500 Mg Tablet) 500 mg PO BID [facility] Last Admin: 05/14/24:27 Dose: 500 mg Metoprolol Tartrate (Metoprolol Tartrate 50 Mg Tablet) 50 mg PO BID [facility]; Protocol Last Admin: 05/14/24:28 Dose: 50 mg Morphine Sulfate (Morphine Sulfate Immed Release 15 Mg Tablet) 15 mg PO Q4H PRN PRN Reason: severe pain (scale score 7-10) Olanzapine (Olanzapine 5 Mg Tablet) 5 mg PO Q6H PRN PRN Reason: anxiety, agitation Oxybutynin Chloride (Oxybutynin Chloride 5 Mg Tablet) 5 mg PO BEDTIME [facility] Last Admin: 05/13/24 21:38 Dose: 5 mg Quetiapine Fumarate (Quetiapine Fumarate 100 Mg Tablet) 100 mg PO BEDTIME [facility] Last Admin: 05/13/24 21:39 Dose: 100 mg Tamsulosin HCl (Tamsulosin Hcl 0.4 Mg Capsule) 0.4 mg PO DAILY [facility] Last Admin: 05/14/24 09:27 Dose: 0.4 mg Tizanidine HCl (Tizanidine Hcl 4 Mg Tablet) 2 mg PO TID PRN PRN Reason: muscle spasms Trazodone HCl (Trazodone Hcl 100 Mg Tablet) 100 mg PO BEDTIME [facility] Last Admin: 05/13/24 21:40 Dose: 100 mg Allergies Allergies Allergy/AdvReac Type Severity Reaction Status Date / Time dicyclomine [From Bentyl] Allergy Unknown Verified 05/13/24 15:12 mepivacaine Allergy Unknown Verified 05/13/24 15:12 Assessment & Plan Assessment & Plan (1) Chronic pain: Status: Acute Code(s): G89.29 - Other chronic pain (2) Mood disorder: Status: Acute Code(s): F39 - Unspecified mood [affective] disorder Plan Mood Disorder, recent non compliance with Depakote, Seroquel. PTSD (), Chronic Pain which effects independence, mobility and ability to care for himself. Hx of [place] psychiatry alliance with Dr. Pedraza, who is not available today to complete a case review. Plan: Continue Depakote, Seroquel to assess efficacy with compliance Olanzapine 5 mg q6H prn anxiety, agitation B12,Folate,Vit D, TSH,T4 03/15 Team report they will be looking at [facility] options for [facility] for pt. Care team to review as well. Texted with Shani Gómez [facility] We are available to Mr. Baumann at his request and as needed. Total time managing care of this patient today ____ minutes. Informed Consent: understands
--- NOTE | 2024-05-14 11:28 | PHA.MEDREC ---
Pharmacy Consult ? Medication Reconciliation Pharmacy has completed the medication reconciliation. Med list faxed from [facility].
[2024-05-14 13:34] VITALS: BP 146/63; PULSE 53; RESP 18; TEMP 36.8; O2SAT 96
[2024-05-14] MEDS: Morphine Sulfate Immed Release 15 MG TABLET PO ×2 (15:56→20:09)
[2024-05-14] MEDS: Docusate Sodium 100 MG CAPSULE PO (18:21)
[2024-05-14] MEDS: polyethylene glycoL 3350 17 GM POWD.PACK PO (18:21)
[2024-05-14 19:55] VITALS: BP 152/69; PULSE 55; RESP 20; TEMP 36.8; O2SAT 95
[2024-05-14 20:09] VITALS: BP 152/69; PULSE 55
[2024-05-14] MEDS: TiZANidine HCL 4 MG TABLET 2 MG PO (20:09)
[2024-05-14] MEDS: traZODone HCL 100 MG TABLET PO (20:09)
[2024-05-14] MEDS: OLANZapine 5 MG TABLET PO (20:09)
[2024-05-14] MEDS: Divalproex Sodium ER 500 MG TAB.ER.24H 1000 MG PO (20:10)
[2024-05-14] MEDS: oxyBUTYnin chloride 5 MG TABLET PO (20:10)
[2024-05-14] MEDS: QUEtiapine Fumarate 100 MG TABLET PO (20:10)
--- NOTE | 2024-05-14 20:30 | PC.NURSE ---
Upon medicating the patient around 20:00 per request, patient stated that he was unhappy because his ice melted. Patient was given full pitcher of new ice approximately 15 minutes prior by this RN. This RN kindly/calmly stated that she put ice in the pitcher, to which patient suddenly escalated, became agitated and responded: I don't give a shit that it melted, I'm not taking my medications without ice! Geez! Go back to nursing school and learn about compassion and being competent and that it's your job to help me! Just fucking get me some ice because I'm not doing a damn thing until I get some ice! This RN clarified that I was not unwilling to get ice, I was just simply stating that I had just obtained the new ice as requested, but that it was apparently, not to the patient's satisfaction. I agreed to get more ice, but that I will not tolerate being sworn at or being spoken to in such a manner, or aggression. Patient then shoo-ed this RN away. Room noted to be warm (76 degrees per thermostat). This patient has a history of being difficult to work with, refusing multiple aspects of care from others, and refuses safety measures (such as fall precautions & alarms), all of which continues at this time. Patient was given fresh ice water, along with 10 packs of saltines and 2 packs of sarah crackers per request, but this RN remained firm by stating that aggression and foul language is not tolerated towards any staff, and if there are any additional needs, I'm happy to help and to please use the call amaya. Patient requested that lights be turned off, and door closed. Provider (JOVANI Jacobson) & application release manager (Malu Johnston) aware of patient's behaviors/incident.
[2024-05-15 02:28] VITALS: BP 146/68; PULSE 58; RESP 18; TEMP 36.7; O2SAT 95
[2024-05-15] MEDS: Morphine Sulfate Immed Release 15 MG TABLET PO ×4 (03:40→17:35)
[2024-05-15] MEDS: Docusate Sodium 100 MG CAPSULE PO (03:49)
--- NOTE | 2024-05-15 05:39 | PC.NURSE ---
Patient medicated at 3:40am by Vivian Boland RN due to this RN being in another patient's room at the time of his request. Patient requesting Q4H 'around the clock' pain medication with Morphine 15mg. Patient was also given Colace per PRN orders by Vivian. Patient was thankful for care. No additional needs. Patient is sleeping comfortably at this time. Respirations even/unlabored. Care ongoing by this RN.
[2024-05-15 08:43] VITALS: BP 147/66; PULSE 54; RESP 18; TEMP 36.8; O2SAT 98
[2024-05-15] MEDS: metFORMIN HCl 500 MG TABLET PO ×2 (08:55→20:56)
[2024-05-15] MEDS: Acetaminophen 325 MG TABLET 650 MG PO ×4 (08:55→20:56)
[2024-05-15] MEDS: Gabapentin 600 MG TABLET 900 MG PO ×2 (08:55→14:15)
[2024-05-15] MEDS: OLANZapine 5 MG TABLET PO (08:56)
[2024-05-15] MEDS: Furosemide 40 MG TABLET PO (08:56)
[2024-05-15] MEDS: Atorvastatin Calcium 40 MG TABLET PO (08:56)
[2024-05-15] MEDS: Isosorbide Mononitrate 30 MG TAB.ER.24H PO (08:56)
[2024-05-15] MEDS: Apixaban 5 MG TABLET PO ×2 (08:56→20:56)
[2024-05-15] MEDS: Aspirin Enteric Coated 81 MG TABLET.DR PO (08:56)
[2024-05-15] MEDS: TiZANidine HCL 4 MG TABLET 2 MG PO (08:56)
[2024-05-15] MEDS: Tamsulosin HCL 0.4 MG CAPSULE PO (08:56)
[2024-05-15] MEDS: Insulin Glargine,Hum.rec.anlog 100 UNIT/ML 10 ML VIAL 60 UNIT SUBCUT (08:57)
[2024-05-15] MEDS: polyethylene glycoL 3350 17 GM POWD.PACK PO (08:57)
[2024-05-15] MEDS: Milk of Magnesia 30 ML ORAL.SUSP 15 ML PO (08:57)
[2024-05-15 09:10] LABS: Glucose, Whole Blood 100 mg/dL (60-115)
--- NOTE | 2024-05-15 12:43 | MHC.CM.ED ---
Addendum entered by Alexandra Juarez 05/15/24 12:52: Per [facility], patient does not have [employer]. Original Note: Patient remains in ER overflow. [facility] is willing to offer a bed but is concerned that patient did not stay at [facility] on [address]. Met with patient. Explained [facility] can offer a bed but are concerned that patient won't stay at the facility. Patient stated I don't know that until I get there. Patient has no family or friends locally that can tour facility. T/W explained medications can't be ordered at a SNF until patient has arrived at facility. Also explained this could take 4 hours. Patient verbalized understanding. Patient complaining of being hungry. Lunch tray at bedside. Patient stated he doesn't like the hospital food and is trying to order food. Patient aware [facility] will not be able to accept patient until insurance [facility] can [facility]. Patient states he has [employer] and [employer]. However, patient is 100% disabled with the [facility]. [facility] will be paying for STR placement. Will need [facility] PASRR Level 2 on-site assessment due to being d/c'd to a SNF and returning the same day. [facility] Level 1 completed. Continue to monitor for d/c needs.
[2024-05-15] MEDS: Famotidine 20 MG TABLET PO (14:51)
[2024-05-15] MEDS: Sennosides 8.6 MG TABLET PO (14:51)
[2024-05-15 18:50] VITALS: BP 140/65; PULSE 65; RESP 14; TEMP 36.6; O2SAT 96
[2024-05-15] MEDS: Divalproex Sodium ER 500 MG TAB.ER.24H 1000 MG PO (20:56)
[2024-05-15] MEDS: traZODone HCL 100 MG TABLET PO (20:56)
[2024-05-15] MEDS: oxyBUTYnin chloride 5 MG TABLET PO (20:56)
[2024-05-15] MEDS: Gabapentin 300 MG CAPSULE 900 MG PO (20:56)
[2024-05-15] MEDS: Metoprolol Tartrate 50 MG TABLET PO (20:56)
[2024-05-15] MEDS: QUEtiapine Fumarate 100 MG TABLET PO (20:56)
--- NOTE | 2024-05-15 21:23 | PC.NURSE ---
lab called to ask about 0700 labs that were not drawn today. RN attempted to draw, pt said he was a hard stick and preferred phlebotomy to do it. phlebotomy called and will obtain labs
[2024-05-15 22:39] LABS: Thyroid Stimulating Hormone 2.64 uIU/mL (0.32-4.0); Vitamin D 25-OH Total 16.7 ng/mL (>30)
[2024-05-15 22:54] LABS: Folate 7.8 ng/mL (> or = 4.0); Vitamin B12 496 pg/mL (200-900)
[2024-05-16] VITALS (7 sets, daily range): BP systolic 133–139; BP diastolic 59–63; PULSE 60; RESP 16–20; TEMP 37–37.1; O2SAT 96–97
[2024-05-16] MEDS: OLANZapine 5 MG TABLET PO ×3 (00:38→21:12)
--- NOTE | 2024-05-16 06:29 | MHC.EDTECH ---
Upon entering pt room for AM vitals the patient became agitated and refused this tech to perform vital signs. RAMA Olmstead made aware. Pt RR recorded and documented in pt chart
[2024-05-16] MEDS: Acetaminophen 325 MG TABLET 650 MG PO ×3 (09:07→21:12)
[2024-05-16] MEDS: Apixaban 5 MG TABLET PO ×2 (09:08→21:11)
[2024-05-16] MEDS: Aspirin Enteric Coated 81 MG TABLET.DR PO (09:08)
[2024-05-16] MEDS: Atorvastatin Calcium 40 MG TABLET PO (09:09)
[2024-05-16] MEDS: Gabapentin 300 MG CAPSULE 900 MG PO ×3 (09:10→21:10)
[2024-05-16] MEDS: Tamsulosin HCL 0.4 MG CAPSULE PO (09:10)
[2024-05-16] MEDS: metFORMIN HCl 500 MG TABLET PO ×2 (09:12→21:12)
[2024-05-16] MEDS: Metoprolol Tartrate 50 MG TABLET PO ×2 (09:16→21:10)
[2024-05-16] MEDS: Isosorbide Mononitrate 30 MG TAB.ER.24H PO (09:17)
[2024-05-16] MEDS: Furosemide 40 MG TABLET PO (09:17)
[2024-05-16] MEDS: Insulin Glargine,Hum.rec.anlog 100 UNIT/ML 10 ML VIAL 60 UNIT SUBCUT (09:18)
[2024-05-16 09:35] LABS: Glucose, Whole Blood 156 mg/dL (60-115)
--- NOTE | 2024-05-16 10:39 | PM.EVENT ---
Documented by User: Mitra Rinaldi, PROFESSOR OF CHEMICAL ENGINEERING 05/16/24 11:14 Event Note Date of Service: 05/16/24 Event Note: Real Estate Asset Manager contacted [facility] to talk with pt's psychiatrist, Dr. Pedraza for his recommendations for ongoing care. Team will leave him a message to call. Team reports they have had daily contact with him. He has been in distress last week, Dr. Pedraza talking with pt daily to offer support and intervention. 11:10 Return call from tony Lama's RN at the [facility]. She has consulted with Dr. Pedraza. She reports pt calls them multiple times per day for services. When they offer help, he refuses and becomes verbally caustic. Pt was at [facility] for a few weeks, discharged. They find that he is not committable psychiatrically and they agree he is in need of rehab as he is not able to care for himself currently. They believe rehab is the best plan at this time. Pt has a home care consultant, Ghassan Cleaning, of [facility] [phone] who is supposed to see him regularly in addition. She can be contacted for details regarding his care as well. Time Spent With Patient Time: Total time managing care of this patient today ____ minutes. Documented by User: Castillo Eason MD 05/17/24 10:32 Event Note Date of Service: 05/17/24
[2024-05-16] MEDS: Morphine Sulfate Immed Release 15 MG TABLET PO ×2 (14:58→21:13)
[2024-05-16] MEDS: TiZANidine HCL 4 MG TABLET 2 MG PO ×2 (14:59→21:09)
--- NOTE | 2024-05-16 19:50 | PC.NURSE ---
Patient used call amaya, stated I want to speak to a Charge nurse or a garbage collector supervisor or something. That miryam (referring to ready mix truck driver Alejandrina Abundio) came in here and woke me up and has an attitude . This RN witnessed the interaction in question and I stated Sir, he was attempting to obtain your vitals and provide you with the provided pants that you requested, and you yelled at him to fuck off and get out of your room. I'm sorry that you are upset, and we can forgo vitals for the time being if you wish, but there was no attitude or maltreatment from staff. I am more than happy to help you, but please do not verbally harass or swear at staff, it will not be tolerated. You have been agitated during most interactions. Patient was then apologetic, stated I don't want to be like this, but I have PTSD and stuff and I have a very short fuse. When you get a chance, can you please get me some ice? This RN agreed to get patient ice, and explained that there will be a slight delay due to the ice machine in overflow malfunctioning. Patient was understanding and thankful to this RN. Plan to medicate upon arrival of medications from pharmacy around 8pm today. Patient verbalized understanding and was again thankful.
[2024-05-16] MEDS: oxyBUTYnin chloride 5 MG TABLET PO (21:09)
[2024-05-16] MEDS: Divalproex Sodium ER 500 MG TAB.ER.24H 1000 MG PO (21:09)
[2024-05-16] MEDS: traZODone HCL 100 MG TABLET PO (21:10)
[2024-05-16] MEDS: QUEtiapine Fumarate 100 MG TABLET PO (21:11)
--- NOTE | 2024-05-16 21:15 | PC.NURSE ---
While medicating this patient, patient dropped a single tablet onto the floor accidentally. Patient insisted that the lights stay off in the room. While this RN was looking for the dropped tablet, patient was calling this RN are you fucking stupid? It's behind the leg . Patient meant that the tablet was behind the table leg. This RN found the tablet and offered to get a new/clean tablet. The patient then stated just give me the fucking tablet, I'm tired of you and everyone else's bullshit here! Patient was also noted to not have a hospital bracelet in place anymore and printed a new one. I placed the bracelet onto the bedside table because he refused to wear the bracelet, to which he asked what the fuck do you want me to do with this? Do you want me to hold onto it or put it in my pocket? I stated either is fine with me, as long as it's nearby or in your room . Patient then responded stating: Can't you see that you're fucking agitating me?! Get the fuck out of here you bitch! Stop fucking arguing with me about everything! This RN left the patient room and again stated that verbal harassment and swearing are not tolerated. Patient then stood up with his cane, came out of Overflow room 4, and demanded to speak with a supervisor bottle house cleaners/someone in charge. This RN contacted and Pratima Gibson RN (clinical coordinator), who both came to bedside to speak with the patient. Upon Pratima & entering, patient was agitated with Pratima telling her to get out . Pratima clarified that she is one of the staff members in charge and was called to speak with him. Patient is very easily agitated with little to no triggers. Pratima contacted CARE team to review psych evaluation that the patient had recently.
--- NOTE | 2024-05-16 21:58 | PC.NURSE ---
T/w at bedside with security as pt became verbally aggressive to OF staff and was requesting to make a complaint against his primary RN. T/w entered the room with security and was immediately met with hostility, pt telling security kick her out of my room, get her out of here! I introduced myself, stated I was here as he had requested to make a formal complaint. Pt refusing to make eye contact or engage in conversation with t/w but pt pleasantly conversing with security. Pt requesting to leave the hospital, states he would like to go somewhere that has competent staff. Care team consult placed 05/14 but no documentation entered. Per Marley, from Care Team, pt saw psychiatry. Pt continues to be a bed placement. [facility] made aware of pts behavior d/t concerns of escalation. T/w attempting to contact pts case mgr from elder services but was unable to make contact at this time.
--- NOTE | 2024-05-17 03:38 | PC.NURSE ---
Patient resting in bed comfortable at this time. No distress observed or verbalized by patient.
--- NOTE | 2024-05-17 05:33 | PC.NURSE ---
pt becoming verbally abusive towards tech. unable to complete vital signs at this time. will reattempt.
[2024-05-17 06:10] VITALS: BP 124/59; PULSE 53; RESP 18; TEMP 36.6; O2SAT 98
--- NOTE | 2024-05-17 06:15 | PC.NURSE ---
pt accidentally spilled water from bedside table onto entire bed and floor. 1:1 assist OOB and into the chair. full bed change completed. pt assisted back into bed/repositioned to comfort. vitals obtained. pt provided w/ new water and saltines per pt request. lights dimmed to promote comfort. bed alarm turned on for safety precautions. call amaya placed within reach.
[2024-05-17 08:39] VITALS: BP 137/80; PULSE 57; RESP 18; TEMP 36.9; O2SAT 95
[2024-05-17] MEDS: Gabapentin 300 MG CAPSULE 900 MG PO ×3 (08:58→20:49)
[2024-05-17] MEDS: Furosemide 40 MG TABLET PO (08:58)
[2024-05-17] MEDS: Isosorbide Mononitrate 30 MG TAB.ER.24H PO (08:58)
[2024-05-17] MEDS: Insulin Glargine,Hum.rec.anlog 100 UNIT/ML 10 ML VIAL 60 UNIT SUBCUT (08:58)
[2024-05-17] MEDS: Atorvastatin Calcium 40 MG TABLET PO (08:59)
[2024-05-17] MEDS: Metoprolol Tartrate 50 MG TABLET PO ×2 (08:59→20:49)
[2024-05-17] MEDS: Cholecalciferol (Vitamin D3) 25 MCG TABLET PO (08:59)
[2024-05-17] MEDS: metFORMIN HCl 500 MG TABLET PO ×2 (08:59→20:50)
[2024-05-17] MEDS: Tamsulosin HCL 0.4 MG CAPSULE PO (08:59)
[2024-05-17] MEDS: Aspirin Enteric Coated 81 MG TABLET.DR PO (08:59)
[2024-05-17] MEDS: Morphine Sulfate Immed Release 15 MG TABLET PO ×3 (10:12→19:14)
[2024-05-17] MEDS: Apixaban 5 MG TABLET PO ×2 (10:12→20:50)
--- NOTE | 2024-05-17 10:12 | PC.NURSE ---
this nurse took over pt care at 9am, pt a&ox3- cantankerous to this nurse and tech, pt c/o -01/27 pain pt medicated with morphine per order, pt refused assessment by this nurse- from visual of patient- this nurse noted his rr was equal/non labored- pt speaking in clear/full sentences. pt bilateral feet have edema and are red- unable to assess the edema as pt refusing assessment. pt is currently oob with his cane and assist of masoud, call amaya within reach, plan of care ongoing.
--- NOTE | 2024-05-17 11:37 | MHC.CM.ED ---
Patient remains in ER overflow. Per [facility], patient will need [facility] Level 2 on-site assessment. Per Dagmar of [facility], on-site visit will be conducted tomorrow, 05/18 at 11am. Spoke with Kelin of [place] about changing auth from [facility] to [facility]. Continue to monitor for d/c needs.
--- NOTE | 2024-05-17 12:09 | PC.NURSE ---
pt continues to complain of generalized pain 9-01/27 and is feeling as if this facility isn't addressing his pain issues appropriately, pt has been medicated with morphine, states tylenol doesnt work. will notify the provider of pts pain.
[2024-05-17 15:46] VITALS: BP 130/61; PULSE 57; RESP 20; TEMP 36.9; O2SAT 98
--- NOTE | 2024-05-17 16:50 | PC.NURSE ---
patient a&o, sitting at bedside eating dinner, pt has continuous chronic pain and has stated nobody cares I am in pain pt has been medicated with morphine as ordered, pt refuses tylenol. No change in pain is noted after morphine is given- pt just requests more medication when asked the pain level even if not due yet.
--- NOTE | 2024-05-17 19:20 | PC.NURSE ---
pt a&ox3, c/o 12/28 pain, pt requesting pain medication which he was given per his request, call amaya within reach, plan of care ongoing.
--- NOTE | 2024-05-17 19:47 | PC.NURSE ---
pharmacy called for patients missing medications
[2024-05-17 20:42] VITALS: BP 136/60; PULSE 61; RESP 16; TEMP 36.3; O2SAT 98
[2024-05-17 20:49] VITALS: BP 136/60; PULSE 61
[2024-05-17] MEDS: traZODone HCL 100 MG TABLET PO (20:50)
[2024-05-17] MEDS: oxyBUTYnin chloride 5 MG TABLET PO (20:50)
[2024-05-17] MEDS: Divalproex Sodium ER 500 MG TAB.ER.24H 1000 MG PO (20:50)
[2024-05-17] MEDS: QUEtiapine Fumarate 100 MG TABLET PO (20:50)
[2024-05-18] MEDS: Morphine Sulfate Immed Release 15 MG TABLET PO ×2 (00:05→16:52)
--- NOTE | 2024-05-18 00:16 | PC.NURSE ---
pt previously stated was in no pain, approx 45 minutes later rang call amaya requesting prn medication as reports 10/10 back pain. this RN also previously noted pt to be able to get oob with cane without assistance, had steady gait, now pt requested help to get oob but able to help self with minimal assistance. pt appears to be forgetful, when assessing mentation pt is axox4 able to state self, year, president, place, and some part of situation but repeatedly questioning how he ended up here from [facility]. pt also did not recognize this RN when i entered room to answer call amaya. pt also stated he believes he didn't receive prn since this AM, educated appears it was given around 1900 per jun. pt given prn at this time, able to swallow med whole with water without sign of choking/aspirating. assisted back to bed with cane and call amaya within reach.
--- NOTE | 2024-05-18 05:03 | PC.NURSE ---
Addendum entered by Sung Park 05/18/24 05:12: pt opened his door and states i need to go to the bathroom, I need the commode. stated pt has commode in room pt states no i need the commode. i mean the bathroom. pointed to where the bathroom is and pt states he cant walk that far. redirected pt to commode in room and pt slammed door in this RNs face again. Original Note: upon rounding on pt pt found to be standing at edge of bed using urinal. this RN closed door and yelled through the door asking if pt needed assistance. pt stated i'm just trying to use the urinal. pt then got up and stood against door. asked if pt was okay and did not answer. heard chair move so this RN attempt to open door and pt slammed door in this RNs face. appears to currently be sitting at edge of bed. rim fire charger operator made aware.
[2024-05-18 06:00] VITALS: BP 122/59; PULSE 54; RESP 16; TEMP 36.1; O2SAT 97
[2024-05-18] MEDS: Gabapentin 300 MG CAPSULE 900 MG PO (10:19)
[2024-05-18] MEDS: Acetaminophen 325 MG TABLET 650 MG PO (10:19)
[2024-05-18] MEDS: Tamsulosin HCL 0.4 MG CAPSULE PO (10:20)
[2024-05-18] MEDS: Isosorbide Mononitrate 30 MG TAB.ER.24H PO (10:20)
[2024-05-18] MEDS: Furosemide 40 MG TABLET PO (10:20)
[2024-05-18] MEDS: metFORMIN HCl 500 MG TABLET PO (10:20)
[2024-05-18] MEDS: Apixaban 5 MG TABLET PO (10:20)
[2024-05-18] MEDS: Cholecalciferol (Vitamin D3) 25 MCG TABLET PO (10:20)
[2024-05-18] MEDS: Aspirin Enteric Coated 81 MG TABLET.DR PO (10:21)
[2024-05-18] MEDS: Metoprolol Tartrate 50 MG TABLET PO (10:21)
[2024-05-18] MEDS: Insulin Glargine,Hum.rec.anlog 100 UNIT/ML 10 ML VIAL 60 UNIT SUBCUT (10:21)
[2024-05-18] MEDS: Atorvastatin Calcium 40 MG TABLET PO (10:21)
--- NOTE | 2024-05-18 12:14 | MHC.CM.ED ---
Patient remains in ER overflow. [facility] PAS[facility] on-site assessment completed. Anticipate Level 2 will be available tomorrow, 05/19. [facility] made [facility]. Continue to monitor for d/c needs.
[2024-05-18 14:00] VITALS: PULSE 65; RESP 20; TEMP 36.2; O2SAT 96
--- NOTE | 2024-05-18 18:23 | MHC.EDTECH ---
T/W attempted to clear patients diner tray. When T/W tried to take the tray the patient began to yell at me stating don't touch that you'll make my food cold. T/W left the try and left the room.
--- NOTE | 2024-05-18 18:23 | PC.NURSE ---
Call amaya on, upon entering room patient found on the commode completely naked, when asked what help is needed patient started to scream to get out of his room, yelling, verbally abusive to staff, patient was educated on the use of call amaya and what can be expected when the amaya is used. Patient continue verbally assaulting staff at which point he was left in the room alone as requested.
[2024-05-18 19:29] VITALS: BP 131/60; PULSE 57; RESP 16; O2SAT 97
--- NOTE | 2024-05-18 19:30 | MHC.EDTECH ---
This pct assumed care of Patient at 1915 ,Vitals taken ,Patient supper tray Picked up ,Patient ate 100 % of meals and drank 480 ml fluids ,Patient complaining that he hungry ,that he did not had supper ,i offer Patient sandwiches ,Patient refused ,Fresh ice water given .
--- NOTE | 2024-05-18 22:18 | PC.NURSE ---
refused all night meds claiming that he has not eaten all day even though nursing staff removed dinner tray from pt's room that was completely consumed. offered pt sandwiches/pudding and di linwood but pt found it sub par and inadequate and refused to eat it.
--- NOTE | 2024-05-18 22:47 | PC.NURSE ---
sleeping comfortably, respirations non labored. cont to reinforce safety
--- NOTE | 2024-05-19 01:00 | PC.NURSE ---
pt used commode at bedside independently. uses cane at baseline. requested pain meds but fell asleep shortly thereafter while RN was facilitating getting order.
[2024-05-19] MEDS: Morphine Sulfate Immed Release 15 MG TABLET PO ×5 (02:25→21:07)
[2024-05-19 06:15] VITALS: BP 147/67; PULSE 57; RESP 16; TEMP 36.2; O2SAT 97
--- NOTE | 2024-05-19 06:42 | PC.NURSE ---
fell asleep after receiving morphine; uneventful night. all night meds returned due to refusal. cont to provide emotional support/reassurance/safety.
[2024-05-19 07:21] LABS: Glucose, Whole Blood 101 mg/dL (60-115)
[2024-05-19] MEDS: Gabapentin 300 MG CAPSULE 900 MG PO ×3 (08:25→20:14)
[2024-05-19] MEDS: Furosemide 40 MG TABLET PO (08:25)
[2024-05-19] MEDS: Aspirin Enteric Coated 81 MG TABLET.DR PO (08:25)
[2024-05-19] MEDS: Apixaban 5 MG TABLET PO ×2 (08:26→20:14)
[2024-05-19] MEDS: Cholecalciferol (Vitamin D3) 25 MCG TABLET PO (08:26)
[2024-05-19] MEDS: metFORMIN HCl 500 MG TABLET PO ×2 (08:26→20:14)
[2024-05-19] MEDS: Isosorbide Mononitrate 30 MG TAB.ER.24H PO (08:26)
[2024-05-19] MEDS: Tamsulosin HCL 0.4 MG CAPSULE PO (08:26)
[2024-05-19] MEDS: Acetaminophen 325 MG TABLET 650 MG PO ×3 (08:26→21:07)
[2024-05-19] MEDS: Atorvastatin Calcium 40 MG TABLET PO (08:27)
[2024-05-19] MEDS: Insulin Glargine,Hum.rec.anlog 100 UNIT/ML 10 ML VIAL 60 UNIT SUBCUT (08:31)
--- NOTE | 2024-05-19 09:20 | MHC.CM.ED ---
Addendum entered by Alexandra Juarez 05/19/24 09:22: Facility is requesting narcotic prescriptions be sent to [facility], [address], [place]. Ila HAHN aware. Original Note: Patient remains in ER. Received notification from [facility] that they have received [facility] PAS[facility] Level 2. T/W spoke with Digna at the [place]. [facility] has [facility] given auth to facility. Alert BLS booked for 1pm. Med nec with chart. Patient, Zeny ONTIVEROS and Ila HAHN aware. Continue to monitor for d/c needs.
[2024-05-19] MEDS: OLANZapine 5 MG TABLET PO (11:16)
[2024-05-19] MEDS: TiZANidine HCL 4 MG TABLET 2 MG PO (11:17)
[2024-05-19 13:12] VITALS: BP 154/68; PULSE 66; RESP 20; TEMP 36.3; O2SAT 99
--- NOTE | 2024-05-19 13:42 | PC.NURSE ---
pt vomited about 400ml into emesis bag. looks like the majority of his lunch. PA notifeid. zofran given, tylenol held
[2024-05-19] MEDS: Ondansetron ODT 4 MG TAB.RAPDIS TRANSLINGU (13:44)
--- NOTE | 2024-05-19 15:12 | MHC.CM.ED ---
Received notification from Zeny ONTIVEROS patient vomited. Patient evaluated by Ila HAHN. D/c on hold at this time. [facility] made aware. Continue to monitor for d/c needs.
[2024-05-19 15:44] LABS: Basophils Percent Auto 0.4 % (0-2); Imm Gran Abs Auto 0.04 X10*3/uL (0.00-0.03); Imm Gran Pct Auto 0.5 % (0.0-0.4); MANUAL DIFF FLAG SCAN; PLT CLUMP 1; Red Blood Count 4.25 X10*6/uL (4.60-5.80); SCAN SMEAR FLAG 1
[2024-05-19 15:46] LABS: Eosinophils Absolute Auto 0.2 X10*3/uL (0.0-0.4); Eosinophils Percent Auto 2.4 % (0-4); Hematocrit 37.2 % (42.0-52.0); Hemoglobin 12.9 g/dl (14.0-18.0); Lymphocytes Absolute Auto 1.4 X10*3/uL (1.2-4.9); Lymphocytes Percent Auto 18.8 % (20-40); Mean Corpuscular HGB Conc 34.7 g/dl (31.0-36.0); Mean Corpuscular Hemoglobin 30.4 pg (27.0-33.0); Mean Corpuscular Volume 87.5 fL (80.0-98.0); Mean Platelet Volume 12.3 fL (9.4-12.4); Monocytes Absolute Auto 0.6 X10*3/uL (0.1-1.2); Monocytes Percent Auto 8.4 % (2-11); Neutrophils Absolute Auto 5.1 x10*3/uL (2.0-8.3); Neutrophils Percent Auto 69.5 % (45-73); Red Cell Distribution Width 12.9 % (11.0-16.0)
--- NOTE | 2024-05-19 15:55 | MHC.EDTECH ---
Patient requested ice water says he is no longer nauseous.
[2024-05-19 15:58] LABS: Creatinine Clr Calc Pharmacy 61.8; Estimated Glomerular Filt Rate > 60
[2024-05-19 16:04] LABS: Platelet Count 96 X10*3/uL (160-400); White Blood Count 7.4 X10*3/uL (4.8-10.8)
[2024-05-19 16:05] LABS: SLIDE REVIEW VERIFIED
[2024-05-19 16:10] LABS: Alanine Aminotransferase < 6 U/L (0-40); Albumin Level 3.7 g/dL (3.5-5.0); Anion Gap 11 (12-20); Aspartate Amino Transferase 22 U/L (5-37); Bilirubin Total 0.6 mg/dL (0.0-1.0); Blood Urea Nitrogen 17 mg/dL (9-16); Calcium 9.7 mg/dL (8.4-10.2); Carbon Dioxide 31 mmol/L (22-29); Chloride 101 mmol/L (96-108); Creatinine Clr Calc Pharmacy 62.9; Estimated Glomerular Filt Rate > 60; Glucose Random 147 mg/dL (60-115); Magnesium 1.7 mg/dL (1.6-2.6); Sodium 139 mmol/L (135-145); Total Protein 6.3 g/dL (6.5-8.0)
[2024-05-19 16:21] LABS: Influenza A PCR NEGATIVE (Negative); Influenza B PCR NEGATIVE (Negative); Resp Syncy Virus RNA Qual PCR NEGATIVE (Negative); SARS COV2 PCR INHOUSE NEGATIVE (Negative)
[2024-05-19 16:27] LABS: Alkaline Phosphatase 53 U/L (39-117)
--- NOTE | 2024-05-19 17:15 | PC.NURSE ---
Addendum entered by Maribel Carrasco RN 05/19/24 23:10: Patient has rang the call amaya multiple times during typewriter operator automatic's shift for frequent refills of water and snacks, requested a bag of 12 saltines and 12 sarah crackers , also requested more pairs of those socks . Discussed with patient that we can provide some packages of saltines and sarah crackers now and more later, as we also need some in stock for the other patients on the unit. Patient expressed understanding and was appreciative. Patient has continued to tolerate snacks and drinks without nausea or vomiting. Patient is resting in bed watching tv, appearing comfortable since medicated per MAR for complaints of generalized and chronic back pain. Breathing is even and unlabored without distress. Handoff report given to oncoming ED RN at 23:00. Original Note: Assumed care of patient at 15:00. Patient seen in ED overflow. BLS was present on the unit with plans to take patient to [facility] when typewriter operator automatic arrived on the unit. However, per handoff report received, the patient had vomited on BLS arrival. Ordered stat labs, viral respiratory panel, and KUB were obtained per provider after the vomiting episode that occurred prior to typewriter operator automatic assuming care. Patient is A&Ox4. Resistive to care at times. Pt complained of nausea shortly after assuming care, though at the same time requested water and pain meds from typewriter operator automatic. Patient had received zofran ODT this afternoon prior to typewriter operator automatic's care, as per MAR review. Pt was given alcohol swabs for inhalation for nausea, and was educated that nursing was unable to give po meds at the time if still nauseous given that he had recently vomited. Pt replied to this typewriter operator automatic that he was no longer nauseous and again made a request for soda and water during our discussion. PA was made aware. Patient was given beverages as requested, which he tolerated without n/v. Lab and KUB results were discussed with covering provider Ila HAHN. Advised to encourage po intake as tolerated. Patient has since drank a full pitcher of water and ate 75% of his dinner this evening without n/v. When pain was assessed this patient made generalized, vague complaints, stated my back, everywhere, I don't know . Patient medicated per JUN and tolerated w/o issue. Also offered non-pharmacological interventions (heat, ice, repositioning encouraged) though patient declined. Repositions self independently in the bed. Per discussion with PA, patient is again cleared to continue with discharge to [facility], however, will have to stay another night as the facility is now unable to accept the patient at this time of evening. Safety measures in place, bed low/locked. Voiding without issue. Plan of care continues.
[2024-05-19 20:06] VITALS: BP 133/68; PULSE 74; RESP 18; TEMP 36.2; O2SAT 97
[2024-05-19] MEDS: traZODone HCL 100 MG TABLET PO (20:14)
[2024-05-19] MEDS: Metoprolol Tartrate 50 MG TABLET PO (20:14)
[2024-05-19 20:21] LABS: Glucose, Whole Blood 169 mg/dL (60-115)
[2024-05-19] MEDS: QUEtiapine Fumarate 100 MG TABLET PO (21:07)
[2024-05-19] MEDS: Divalproex Sodium ER 500 MG TAB.ER.24H 1000 MG PO (21:07)
[2024-05-19] MEDS: oxyBUTYnin chloride 5 MG TABLET PO (21:07)
--- NOTE | 2024-05-19 21:21 | MHC.CM.ED ---
CM has been notified that patient is now cleared to go to [facility]. CM will alert facility in the morning. Will need BLS transport booked again.
[2024-05-19 22:07] VITALS: RESP 18
--- NOTE | 2024-05-19 23:25 | PC.NURSE ---
assumed care of pt at 23:15
--- NOTE | 2024-05-20 06:20 | PC.NURSE ---
pt found to be covered in poop laying in hospital bed naked. This RN and APPLICATION COORDINATOR went in room to clean patient and linens, patient continuously yelling, swearing, saying get the hell out of here!
[2024-05-20 06:55] VITALS: BP 162/86; PULSE 57; RESP 19; TEMP 36.7; O2SAT 98
--- NOTE | 2024-05-20 08:51 | MHC.CM.ED ---
Patient remains in ER. Clinical updates sent to [facility]. [facility]. Patient, Katie ONTIVEROS, and Ila HAHN aware. Continue to monitor for d/c needs.
[2024-05-20] MEDS: Isosorbide Mononitrate 30 MG TAB.ER.24H PO (09:14)
[2024-05-20] MEDS: Cholecalciferol (Vitamin D3) 25 MCG TABLET PO (09:14)
[2024-05-20] MEDS: Apixaban 5 MG TABLET PO (09:14)
[2024-05-20] MEDS: Atorvastatin Calcium 40 MG TABLET PO (09:14)
[2024-05-20] MEDS: metFORMIN HCl 500 MG TABLET PO (09:14)
[2024-05-20] MEDS: Acetaminophen 325 MG TABLET 650 MG PO ×2 (09:14→12:25)
[2024-05-20] MEDS: Aspirin Enteric Coated 81 MG TABLET.DR PO (09:14)
[2024-05-20] MEDS: Tamsulosin HCL 0.4 MG CAPSULE PO (09:15)
[2024-05-20] MEDS: Gabapentin 300 MG CAPSULE 900 MG PO (09:15)
[2024-05-20] MEDS: Metoprolol Tartrate 50 MG TABLET PO (09:15)
[2024-05-20] MEDS: Insulin Glargine,Hum.rec.anlog 100 UNIT/ML 10 ML VIAL 60 UNIT SUBCUT (09:15)
[2024-05-20] MEDS: Furosemide 40 MG TABLET PO (09:15)
[2024-05-20] MEDS: TiZANidine HCL 4 MG TABLET 2 MG PO (09:49)
[2024-05-20] MEDS: Morphine Sulfate Immed Release 15 MG TABLET PO (09:49)
[2024-05-20] MEDS: Loperamide HCl 2 MG CAPSULE PO (09:57)
--- NOTE | 2024-05-20 14:03 | PC.NURSE ---
Pt with diarrhea today. A/ox4 and independent in room but does not make it to commode which is directly next to bed because i cant . Changed pts linens and cleaned pt multiple times throughout shift. Pt rude and verbally abusive to staff. Demanding to speak to charge nurse. Charge nurse and security at bedside to speak with pt. Plan to d/c at 1500. Will cont to monitor.
[2024-05-20 15:04] VITALS: BP 162/86; PULSE 57; RESP 18; TEMP 36.7; O2SAT 98
== END 2024-05-20 15:06 | disposition skilled nursing facility (03) ==
PROVIDERS: Clinical Nurse Specialist Psychiatric/Mental Health, Adult; Physician Assistant Medical; Emergency Provider Emergency Medicine; PCP Internal Medicine
DX: G89.29 Other chronic pain (principal); F39 Unspecified mood [affective] disorder; M79.10 Myalgia, unspecified site; R10.2 Pelvic and perineal pain; I25.10 Atherosclerotic heart disease of native coronary artery without angina pectoris; I10 Essential (primary) hypertension; E11.9 Type 2 diabetes mellitus without complications; R26.81 Unsteadiness on feet; Z03.818 Encounter for observation for suspected exposure to other biological agents ruled out; Z79.899 Other long term (current) drug therapy; Z79.4 Long term (current) use of insulin; Z87.891 Personal history of nicotine dependence
CPT/HCPCS: 0241U; 36415; 74018; 80053; 81001; 81003; 82306; 82565; 82607; 82746; 82947; 83735; 84443; 85025; 97162; 99285

== ENCOUNTER → 2024-05-13 15:29 | Outpatient (BNV) | payer OTHER, SELFPAY | PROVIDERS: Emergency Provider Emergency Medicine; Visit Provider Clinical Nurse Specialist Psychiatric/Mental Health, Adult | DX: F39 Unspecified mood [affective] disorder (principal); G89.29 Other chronic pain | CPT/HCPCS: 99222 ==

== ENCOUNTER → 2024-05-19 15:04 | Outpatient (BNV) | payer OTHER, SELFPAY | PROVIDERS: Emergency Provider Emergency Medicine; PCP Internal Medicine; Visit Provider Radiology Diagnostic Radiology | DX: R11.2 Nausea with vomiting, unspecified (principal) | CPT/HCPCS: 74018 ==

== ENCOUNTER 2024-08-02 13:37 | Emergency (ER) | payer MEDICARE, OTHER, SELFPAY ==
[2024-08-02 13:46] VITALS: BP 114/70; PULSE 52; O2SAT 98
[2024-08-02 14:03] VITALS: BP 127/59; PULSE 57; RESP 14; TEMP 36.8; O2SAT 93; BMI 35.2
--- NOTE | 2024-08-02 14:04 | ECG_ITS ---
Test Reason : LEG EDEMA Blood Pressure : */* mmHG Vent. Rate : 52 BPM Atrial Rate : 52 BPM P-R Int : 162 ms QRS Dur : 82 ms QT Int : 476 ms P-R-T Axes : 111 20 128 degrees QTcB Int : 442 ms Sinus bradycardia Septal infarct , age undetermined T wave abnormality, consider lateral ischemia Abnormal ECG When compared with ECG of 11-May-2024 19:18, Septal infarct is now Present Referred By: Carol Stephen Electronically Signed By: EDWARD ROMERO MD
--- NOTE | 2024-08-02 14:10 | ED_ITS ---
HPI - General Adult General Chief complaint: General Medical Stated complaint: LOPEZ FOOT SWELLING X2D,H/O HF PER EMS Time Seen by Provider: 08/02/24 13:51 Source: patient and EMS Mode of arrival: EMS Limitations: other (poor historian) History of Present Illness ED Provider: PRATIMA HPI narrative: 74 yo male with PMH of mood disorder, on eliquis but he is not sure why he states to prevent clots , CHF, HLD, DM, HTN, leg edema on 40mg daily of lasix no changes and compliant he reports no CP/SOB but has pain and swelling no redness or fever to his bilateral legs he states he sleeps in a bed at night. This worsened Thursday. He has had this before and he feels his legs are going to pop. He denies any weight gain. MD complaint: leg swelling/pain Onset (ago): day(s) (Thursday) Location: left, right and lower extremity Radiation: non-radiation Severity: moderate Quality: aching Pain Consistency: constant Relieving factors: immobilization Exacerbating factors: movement Associated symptoms: denies other symptoms Treatments prior to arrival: none Related Data Home Medications ?Medication ?Instructions ?Recorded ?Confirmed divalproex 500 mg tablet,extended 1,000 mg PO BEDTIME 10/24/23 05/13/24 release 24 hr furosemide 40 mg tablet 40 mg PO DAILY 10/24/23 05/13/24 gabapentin 600 mg tablet 900 mg PO TID 10/24/23 05/13/24 isosorbide mononitrate 30 mg 30 mg PO DAILY 10/24/23 05/13/24 tablet,extended release 24 hr metformin 500 mg tablet 500 mg PO BID 10/24/23 05/13/24 oxybutynin chloride 5 mg tablet 5 mg PO BEDTIME 10/24/23 05/13/24 quetiapine 100 mg tablet 100 mg PO BEDTIME 10/24/23 05/13/24 tamsulosin 0.4 mg capsule 0.4 mg PO DAILY 10/24/23 05/13/24 tizanidine 2 mg tablet 2 mg PO TID PRN muscle spasms 10/24/23 05/13/24 apixaban 5 mg tablet 5 mg PO BID 05/12/24 05/13/24 aspirin 81 mg tablet,delayed 81 mg PO DAILY 05/12/24 05/13/24 release atorvastatin 40 mg tablet 40 mg PO DAILY 05/12/24 05/13/24 insulin glargine 100 unit/mL (3 60 unit subcut DAILY 05/12/24 05/13/24 mL) subcutaneous pen (Lantus Solostar U-100 Insulin) metoprolol tartrate 25 mg tablet 50 mg PO BID 05/12/24 05/13/24 trazodone 100 mg tablet 100 mg PO BEDTIME PRN Insomnia 05/12/24 05/13/24 acetaminophen 500 mg tablet 1,000 mg PO Q6H PRN Pain 05/13/24 05/13/24 valsartan 160 mg tablet 160 mg PO DAILY 05/14/24 05/14/24 Previous Rx's ?Medication ?Instructions ?Recorded morphine 15 mg immediate release 15 mg PO Q4H PRN severe pain 05/13/24 tablet (scale score 7-10) #20 tabs morphine 15 mg immediate release 15 mg PO Q4H PRN pain #5 tabs 05/19/24 tablet furosemide 40 mg tablet (Lasix) 40 mg PO DAILY #3 tabs 08/02/24 Allergies Allergy/AdvReac Type Severity Reaction Status Date / Time dicyclomine [From Bentyl] Allergy Unknown Verified 08/02/24 14:05 mepivacaine Allergy Unknown Verified 08/02/24 14:05 Review of Systems 2 Review of Systems: Constitutional : No Fever, No Chills ENT/Mouth : No Ear Pain, No Hoarseness, No sore throat Eyes: No Eye Pain, No Swelling, No Redness, No Foreign Body Cardiovascular : No Chest Pain, No SOB Respiratory : No Cough, No Dyspnea Gastrointestinal : No Nausea, No Vomiting, No Diarrhea, No abdominal Pain Genitourinary : No Dysuria, No Hematuria Musculoskeletal : positive leg pain, No Myalgias, No Joint Swelling Skin : No Skin lacerations, No rash Neuro : No Weakness, No Numbness, No Loss of Consciousness, No Dizziness, No Headache Psych : No Anxiety/Panic, No Depression Heme/Lymph: no easy bruising, no Lymphadenopathy Endocrine : No Polyuria, No Polydipsia All other systems reviewed and are negative PMFSH Past Medical History Attestation statement: The following information was validated with the patient. Source: old records reviewed Medical History Mood disorder Chronic diastolic heart failure PTSD (post-traumatic stress disorder) Coronary artery disease Diabetes mellitus Hypertension Irritable bowel syndrome Social History Social History Household Members: None Housing: Apartment Do you presently have visiting nurse or other home services: Yes ([facility] weekly) Alcohol intake: former Comment: refused bed alarm Patient Tobacco Use Status: Former Tobacco user Tobacco use type: Cigarette Smoked in Last 30 Days: No Use of substances other than those prescribed or required for medical reasons: No Advance Directives: Yes Advance Directives on File: Yes Advance Directives Date on File: 05/12/24 Do you have a plan to hurt others: No Plan service: Yes Physical Exam ED Vital Signs: Vital Signs - 24 hr 08/02/24 14:03 Temperature 98.3 F Pulse Rate 57 Respiratory Rate 14 Blood Pressure 127/59 L Pulse Oximetry 93 Oxygen Delivery Method Room Air BMI result Body Mass Index 35.2 Appearance: Alert. Oriented X3. No acute distress. Eyes: Pupils equal, round and reactive to light. ENT: Pharynx normal. Neck: Normal inspection. Neck supple. CVS: Normal heart rate and rhythm. Pulses normal. Respiratory: No respiratory distress. Breath sounds normal. Abdomen: Soft and non-tender. Skin: Skin warm and dry. Normal skin color. Extremities: pitting edema to prox santamaria both legs 1-2+ pulses and SILT intact, warm foot compartments are soft and compressible there are no wounds/redness/warmth. No calf ttp Neuro: Oriented X 3. No motor deficit. No sensory deficit. CN2-12 intact Medical Decision Making Medical Decision Making MDM Narrative: 74 yo male with PMH of mood disorder, on eliquis but he is not sure why he states to prevent clots , CHF, HLD, DM, HTN, leg edema on 40mg daily of lasix here with c/o leg edema and pain on exam he is NV intact, compartments are soft and compressible doubt compartment syndrome. He has no signs of infection at this time labs, EKG, DVT study ordered. May need increase in his lasix for a few days. He has no CP/SOB to suggest CHF Differential Diagnosis Differential Diagnoses: The differential diagnosis associated with the presentation includes leg edema, CHF, dependent edema, DVT Admission/Observation Consideration of admission/observation: Escalation of care including admission/observation considered refuses to stay overnight or for US at this time he is taking his eliquis will plan on increasing lasix to 40mg BID for 3 days Lab Data MDM Lab Attestation statement: I reviewed the patient's lab results. 08/02/24 14:37 08/02/24 14:37 Labs: Lab Results 08/02/24 Range/Units 14:37 WBC 7.4 (4.8-10.8) X10*3/uL RBC 4.26 L (4.60-5.80) X10*6/uL Hgb 12.8 L (14.0-18.0) g/dl Hct 37.5 L (42.0-52.0) % MCV 88.0 (80.0-98.0) fL MCH 30.0 (27.0-33.0) pg MCHC 34.1 (31.0-36.0) g/dl RDW 14.7 (11.0-16.0) % Plt Count 125 L D (160-400) X10*3/uL MPV 10.8 (9.4-12.4) fL Immature Gran % (Auto) 0.7 H (0.0-0.4) % Neut % (Auto) 48.0 (45-73) % Lymph % (Auto) 36.6 (20-40) % Cass % (Auto) 9.3 (2-11) % Eos % (Auto) 4.2 H (0-4) % Baso % (Auto) 1.2 (0-2) % Lymph # (Auto) 2.7 (1.2-4.9) X10*3/uL Cass # (Auto) 0.7 (0.1-1.2) X10*3/uL Eos # (Auto) 0.3 (0.0-0.4) X10*3/uL Baso # (Auto) 0.1 (0.0-0.2) X10*3/uL Abs Immat Gran (auto) 0.05 H (0.00-0.03) X10*3/uL Absolute Neuts (auto) 3.5 (2.0-8.3) x10*3/uL Absolute Nucleated RBC 0.000 (0.0-0.012) X10*3/uL Nucleated RBC % (auto) 0.0 (0.0-0.2) /100WBC Sodium 141 (135-145) mmol/L Potassium 3.9 (3.3-5.1) mmol/L Chloride 102 (96-108) mmol/L Carbon Dioxide 33 H (22-29) mmol/L Anion Gap 10 L (12-20) BUN 11 (9-16) mg/dL Creatinine 1.21 (0.5-1.4) mg/dL Estim Creat Clear Calc 62.9 Estimated GFR 59 Random Glucose 118 H (60-115) mg/dL Calcium 9.7 (8.4-10.2) mg/dL Magnesium 1.9 (1.6-2.6) mg/dL Total Bilirubin 0.5 (0.0-1.0) mg/dL Direct Bilirubin 0.1 (0.0-0.5) mg/dL AST 18 (5-37) U/L ALT 7 (0-40) U/L Troponin I High Sens 27.0 D (<3.5-35.0) ng/L B-Natriuretic Peptide 281 H (<100) pg/mL Total Protein 6.7 (6.5-8.0) g/dL Albumin 4.1 (3.5-5.0) g/dL TSH 4.54 H (0.32-4.0) uIU/mL Independent Interpretation I performed an independent interpretation of an: EKG Interpretation: Rate: 52 Rhythm: sinus bradycardia [place]: normal Normal P waves. Normal NIDA. Normal QRS complex. ST T wave : inverted t waves I and aVL, V4-V6 qTC: normal prior studies: The study has been interpreted contemporaneously by me. . Independent Historian Clinical information obtained from an independent historian. History obtained from or confirmed by: EMS External Record Review External record reviewed: Inpatient record and Outpatient record Tests considered The following testing was considered but not selected: refuses US Prescription Management I considered prescription management with: Other Discharge Plan Discharge Clinical Impression: Leg edema Patient Disposition: Home, Self-Care Instructions: Leg Edema (ED) Additional Instructions: return for any worsening symptoms like increased pain, swelling, red rash, fevers or any other concerns keep legs elevated increase your lasix dose to 40mg twice a day for 3 days follow up with your doctor by next Thursday for potassium blood test Prescriptions: New furosemide [Lasix] 40 mg tablet 40 mg PO DAILY Qty: 3 0RF No Action apixaban 5 mg Tablet 5 mg PO BID atorvastatin 40 mg Tablet 40 mg PO DAILY aspirin 81 mg Tablet,Delayed Release (Dr/Ec) 81 mg PO DAILY trazodone 100 mg Tablet 100 mg PO BEDTIME PRN (Reason: Insomnia) metoprolol tartrate 25 mg tablet 50 mg PO BID Protocol: Hold for SBP/HR < HOLD for SBP < : 90 HOLD for HR < : 60 insulin glargine [Lantus Solostar U-100 Insulin] 100 unit/mL (3 mL) insulin pen 60 unit SUBCUT DAILY morphine 15 mg tablet 15 mg PO Q4H PRN (Reason: severe pain (scale score 7-10)) Qty: 20 0RF Rx Instructions: Partial Fill upon patient request. furosemide 40 mg Tablet 40 mg PO DAILY metformin 500 mg Tablet 500 mg PO BID gabapentin 600 mg Tablet 900 mg PO TID Rx Instructions: 1 and 1/2 tablets TID tizanidine 2 mg Tablet 2 mg PO TID PRN (Reason: muscle spasms) isosorbide mononitrate 30 mg Tablet Extended Release 24 Hr 30 mg PO DAILY quetiapine 100 mg Tablet 100 mg PO BEDTIME tamsulosin 0.4 mg Capsule 0.4 mg PO DAILY oxybutynin chloride 5 mg Tablet 5 mg PO BEDTIME divalproex 500 mg Tablet Extended Release 24 Hr 1,000 mg PO BEDTIME acetaminophen 500 mg tablet 1,000 mg PO Q6H PRN (Reason: Pain) valsartan 160 mg Tablet 160 mg PO DAILY morphine 15 mg tablet 15 mg PO Q4H PRN (Reason: pain) Qty: 5 0RF Rx Instructions: Partial Fill upon patient request. Print Language: Luxembourgish
[2024-08-02 14:42] LABS: MANUAL DIFF FLAG NO
[2024-08-02 14:54] LABS: Basophils Absolute Auto 0.1 X10*3/uL (0.0-0.2); Basophils Percent Auto 1.2 % (0-2); Eosinophils Absolute Auto 0.3 X10*3/uL (0.0-0.4); Eosinophils Percent Auto 4.2 % (0-4); Hematocrit 37.5 % (42.0-52.0); Hemoglobin 12.8 g/dl (14.0-18.0); Imm Gran Abs Auto 0.05 X10*3/uL (0.00-0.03); Imm Gran Pct Auto 0.7 % (0.0-0.4); Lymphocytes Absolute Auto 2.7 X10*3/uL (1.2-4.9); Lymphocytes Percent Auto 36.6 % (20-40); Mean Corpuscular HGB Conc 34.1 g/dl (31.0-36.0); Mean Platelet Volume 10.8 fL (9.4-12.4); Monocytes Absolute Auto 0.7 X10*3/uL (0.1-1.2); Monocytes Percent Auto 9.3 % (2-11); Neutrophils Absolute Auto 3.5 x10*3/uL (2.0-8.3); Platelet Count 125 X10*3/uL (160-400); Red Blood Count 4.26 X10*6/uL (4.60-5.80); Red Cell Distribution Width 14.7 % (11.0-16.0); White Blood Count 7.4 X10*3/uL (4.8-10.8)
[2024-08-02 15:11] LABS: B Type Natriuretic Peptide 281 pg/mL (<100)
[2024-08-02 15:12] LABS: Alanine Aminotransferase 7 U/L (0-40); Albumin Level 4.1 g/dL (3.5-5.0); Anion Gap 10 (12-20); Aspartate Amino Transferase 18 U/L (5-37); Bilirubin Direct 0.1 mg/dL (0.0-0.5); Bilirubin Total 0.5 mg/dL (0.0-1.0); Blood Urea Nitrogen 11 mg/dL (9-16); Calcium 9.7 mg/dL (8.4-10.2); Carbon Dioxide 33 mmol/L (22-29); Chloride 102 mmol/L (96-108); Creatinine Clr Calc Pharmacy 62.9; Estimated Glomerular Filt Rate 59; Glucose Random 118 mg/dL (60-115); Magnesium 1.9 mg/dL (1.6-2.6); Potassium 3.9 mmol/L (3.3-5.1); Sodium 141 mmol/L (135-145); Total Protein 6.7 g/dL (6.5-8.0)
[2024-08-02 15:30] LABS: TSH reflex Free T4 4.54 uIU/mL (0.32-4.0)
[2024-08-02 16:15] VITALS: BP 140/67; PULSE 56; RESP 14; TEMP 36.7; O2SAT 94
[2024-08-02 16:43] VITALS: BP 140/67; PULSE 56; RESP 14; TEMP 36.7; O2SAT 94
--- OUTSIDE RECORDS SUMMARY | 2024-08-02 17:33 | XMS_ITS | Clinical Summary ---
Author Organization [facility] [employer] [facility] Address [address] [place] [address] Phone Care Team Providers Care Pier Runner Name Role Phone Unavailable Primary Care Provider Unavailabl e Social History Tobacco Use Types Packs/Day Years Used Date Smoking Tobacco: Never Assessed Sex and Gender Information Value Date Recorded Sex Assigned at Not on file Legal Sex Male 9:36 AM EST Gender Identity Not on file Sexual Orientation Not on file Plan of Treatment Health Maintenance Due Date Last Done Comments DTaP,Tdap,and Td Vaccines (1 - Tdap) 1969 Pneumococcal Vaccine: 50+ Ye ars (1 of 1 - PCV) 2000 Zoster Vaccines (1 of 2) 2000 RSV Immunization Adult Patie nts (1 - Risk 60-74 years 1-dose series) 2010 Abdominal Aortic Aneurysm (A AA) Screen 03/23/2022 Cholesterol Screening (Lipid Panel) 03/23/2022 Colorectal Cancer Screening: Colonoscopy 03/23/2022 Depression Screening 03/23/2022 Falls Risk Assessment 03/23/2022 Hepatitis C Screening 03/23/2022 Medicare Annual Wellness Visit 03/23/2022 Social Influencers of Health Screening 03/23/2022 COVID-19 Vaccine (2023-2 5 season) 2023 Hypertension/CHF/CAD Annual BMP Blood Test 07/25/2024 Influenza Vaccine (Season Ended) 2024 HIB Vaccines Aged Out No longer eligi ble based on patient's age to complete this topic HPV Vaccines Aged Out No longer eligi ble based on patient's age to complete this topic Hepatitis A Vaccines Aged Out No long er eligible based on patient's age to complete this topic Hepatitis B Vaccines Aged Out No long er eligible based on patient's age to complete this topic IPV Vaccines Aged Out No longer eligi ble based on patient's age to complete this topic MMR Vaccines Aged Out No longer eligi ble based on patient's age to complete this topic Meningococcal ACWY Vaccine Aged Out N o longer eligible based on patient's age to complete this topic Meningococcal B Vaccine Aged Out No l onger eligible based on patient's age to complete this topic RSV Immunization Patients Un yesi 20 months Aged Out No longer eligible b ased on patient's age to complete this topic Varicella Vaccines Aged Out No longer eligible based on patient's age to complete this topic Insurance [address] [place] [id number] [employer]
--- OUTSIDE RECORDS SUMMARY | 2024-08-02 17:33 | XMS_ITS ---
Author Organization [facility] Care Team Providers Care Rn Physician Office Name Role Phone Flaquito De La Fuente Unavailable Unavailable Olga Garcia Unavailable Unavailable Ruba Longo Unavailable Unavailable Rangel Ordoñez Unavailable Unavailable Nolvia Poole Unavailable Unavailable Daina Abrams Unavailable Unavailable Seifel, Jenny R Unavailable Unavailable Odilia Ornelas Unavailable Unavailable Ashley Lux Unavailable Unavailable Kelin Kendall Unavailable Unavailable Giovanni Weston Unavailable Unavailable Allergies and adverse reactions Code CodeSystem Substance Reaction Severity StartDate Concern Status 3361 RXNORM Dicyclomine Morbilliform er uption (code- 210371329, SNOMED CT) Mild 02/14/2015 active 1815 RXNORM Bupivacaine Morbilliform er uption (code- 902011887, SNOMED CT) Mild 02/14/2015 active Bentyl Unknown Unknown active Care Team Name Role Address Phone Organization Dates Flaquito De La Fuente Attending Physician [address] [place], [address], [place] (Office): : [facility] 12/02/2016 - 12/26/2016 Olga Garcia Attending Physician [address], [place], [address], [place] (Office): : [facility] 12/02/2016 - 12/26/2016 Ruba Longo Attending Physician [address] [place] [address], [address], [facility] (Office): : [facility] 12/02/2016 - 12/26/2016 Rangel Ordoñez Attending Physician [address] [place] [address], [place], [address], [place] (Office): : [facility] 12/02/2016 - 12/26/2016 Nolvia Poole Attending Physician [address] [place] [address], [place], [address], [facility] (Office): : [facility] 12/02/2016 - 12/26/2016 Daina Abrams Attending Physician [address] [place] [address], [place], [address], [place] (Office): : [facility] 12/02/2016 - 12/26/2016 Jenny Trinidad Attending Physician [address] [place] [address] [address], [place], [address], [facility] (Office): : [facility] 12/02/2016 - 12/26/2016 Odilia Ornelas Attending Physician [address] [place] [address] [address], [place], [address], [place] (Office): : [facility] 12/02/2016 - 12/26/2016 Ashley Lux Attending Physician [address] [place] [address], [place], [address], [place] (Office): : [facility] 12/02/2016 - 12/26/2016 Kelin Kendall Attending Physician [address], [place], [address], [place] (Office): : [facility] 12/02/2016 - 12/26/2016 Giovanni Weston Attending Physician [address], [place], [address], [place] (Office): : [facility] 12/02/2016 - 12/26/2016 Mental Status Section Date Assessment Total Score Description 12/26/2016 BIMS 15 cognitively int act CAM 0 No delirium ind icated PHQ-9 00 12/08/2016 BIMS 15 cognitively int act CAM 0 No delirium ind icated PHQ-9 00 Problems Problem # Description Date of onset Resolved Date Code CodeSystem Concern Status 1 NONDISPLACED FRACTURE OF FIRST METATARSAL BONE, LEFT FOOT, SUBSEQUENT ENCOUNTER FOR FRACTURE WITH ROUTINE HEALING 12/03/[address] active 2 CONFUSIONAL AROUSALS 12/02/[address] active 3 DISORIENTATION, UNSPECIFIED 12/02/[address] active 4 ENCOUNTER FOR OTHER SPECIFIED AFTERCARE 12/02/[address] active 5 OTHER FRACTURE OF LEFT FOOT, SUBSEQUENT ENCOUNTER FOR FRACTURE WITH ROUTINE HEALING 12/02/[address] active 6 OTHER ABNORMALITIES OF GAIT AND MOBILITY 10/10/[address] active 7 ACUTE ISCHEMIC HEART DISEASE, UNSPECIFIED 10/09/[address] active 8 ESSENTIAL (PRIMARY) HYPERTENSION 10/09/[address] active 9 FRACTURE OF UNSPECIFIED METATARSAL BONE(S), LEFT FOOT, SUBSEQUENT ENCOUNTER FOR FRACTURE WITH ROUTINE HEALING 10/09/[address] active 10 GASTRO-ESOPHAGEAL REFLUX DISEASE WITHOUT ESOPHAGITIS 10/09/[address] active 11 HYPERLIPIDEMIA, UNSPECIFIED 10/09/[address] active 12 MAJOR DEPRESSIVE DISORDER, RECURRENT, MODERATE 10/09/[address] active 13 CONFUSIONAL AROUSALS 02/14/2015 12/03/[address] completed 14 DIFFICULTY IN WALKING, NOT ELSEWHERE CLASSIFIED 02/14/[address] active 15 DISORIENTATION, UNSPECIFIED 02/14/2015 12/03/[address] completed 16 ENCOUNTER FOR OTHER SPECIFIED AFTERCARE 02/14/2015 12/03/[address] completed 17 GENERALIZED ANXIETY DISORDER 02/14/[address] active 18 MUSCLE WEAKNESS (GENERALIZED) 02/14/[address] active 19 POST-TRAUMATIC STRESS DISORDER, UNSPECIFIED 02/14/[address] active 20 TYPE 2 DIABETES MELLITUS WITH DIABETIC NEUROPATHY, UNSPECIFIED 02/14/[address] active 21 WEAKNESS 02/14/[address] active Reason for Referral No Reasons for Referral Entered Social History Social History Observation Description Start Date End Date Code Code System Current Smoking Status Tobacco smoking consumption unknown 749804152 SNOMED CT Sex Assigned At Male 1950 66166-6 [facility] Vital Signs Code Code System Vitals Name Values and Units Timing Information 9279-1 [facility] Respiratory Rate Value=18.0 Units=/m in 12/26/2016 8462-4 [facility] Blood Pressure-Diastolic Value=80 Un its=mmHg 12/26/2016 8480-6 [facility] Blood Pressure-Systolic Rwmnp=635 Un its=mmHg 12/26/2016 8310-5 [facility] Body Temperature Value=99.5 Units=?? F 12/26/2016 8867-4 [facility] Heart rate Value=98.0 Units=/min 11/2016 95051-3 [facility] O2 % BldC Oximetry Value=94.0 Units= % 12/26/2016 69169-9 [facility] Pain Level Value=4.0 12/26/2016 90876-5 [facility] Weight Ppmbg=430.2 Units=Lbs 10/2016 2339-0 [facility] Blood Sugar Ylvzs=340.0 Units=mg/dL 10/30/2016 8302-2 [facility] Height Value=68.0 Units=Inches 02/15/2015
[2024-08-02 18:05] LABS: Alkaline Phosphatase 59 U/L (39-117)
[2024-08-02 18:11] LABS: Free T4 (Free Thyroxine) 0.94 ng/dL (0.71-1.85)
== END 2024-08-02 16:44 | disposition home or self-care (01) ==
PROVIDERS: Emergency Provider Emergency Medicine; PCP Internal Medicine
DX: R60.0 Localized edema (principal); I11.0 Hypertensive heart disease with heart failure; I50.32 Chronic diastolic (congestive) heart failure; E78.5 Hyperlipidemia, unspecified; E11.9 Type 2 diabetes mellitus without complications; Z79.01 Long term (current) use of anticoagulants; Z79.899 Other long term (current) drug therapy
CPT/HCPCS: 36415; 80048; 80076; 83735; 83880; 84439; 84443; 84484; 85025; 93005; 99283; 99284

== ENCOUNTER → 2024-08-02 14:04 | Outpatient (BNV) | payer MEDICARE, OTHER, SELFPAY | PROVIDERS: Emergency Provider Emergency Medicine; PCP Internal Medicine; Visit Provider Internal Medicine Cardiovascular Disease | DX: R00.1 Bradycardia, unspecified (principal) | CPT/HCPCS: 93010 ==

== ENCOUNTER 2025-02-27 11:04 | Emergency (ER) | payer MEDICARE, SELFPAY ==
[2025-02-27 11:14] VITALS: BP 184/86; PULSE 54; O2SAT 99; BMI 29.6
--- NOTE | 2025-02-27 11:55 | ED_ITS ---
HPI - General Adult General Chief complaint: General Medical Stated complaint: FULL BODY PAIN X1M,BLE EDEMA,NO INJURY Time Seen by Provider: 02/27/25 11:48 Source: patient, EMS and old records reviewed Mode of arrival: EMS Limitations: other (Agitated) History of Present Illness ED Provider: PRATIMA HONG narrative: 74-year-old male with past medical history of mood disorder, chronic diastolic CHF, CAD, PTSD, diabetes, hypertension, IBS, recent homelessness who presents with complaint of not having access to his medications for 1 month. He states [facility] just [facility] not feel [facility] for him. He denies any trauma, increased swelling, fevers. He is able to eat and drink. He tells me he was renting a room from a couple for 1500 dollars a month and is unclear why he moved out but had been staying in a motel for the past 2+ weeks. He states he is now homeless and has nowhere to go. He denies SI or HI. States he has full body pain and needs pain medications. He states he [facility] the [facility] to ask [facility] him though he is 100% disability from the [place] for PTSD and they tell him on the phone to stop calling him that they can not help him. His timeline is very vague and I note that his medications have not been filled since October but he states he used a mail in pharmacy. He is very agitated with RN with any questioning and refused vital signs on arrival. I told him I would help him and obtain labs as well as toxic case management but he has to go through the process MD complaint: Full body ache, homelessness Onset (ago): month(s) (One) Radiation: non-radiation Severity: severe Quality: aching Pain Consistency: constant Relieving factors: none Exacerbating factors: movement Associated symptoms: denies other symptoms Treatments prior to arrival: none Related Data Home Medications ?Medication ?Instructions ?Recorded ?Confirmed furosemide 40 mg tablet 40 mg PO DAILY 10/24/2302/18 metformin 500 mg tablet 500 mg PO BID 10/24/2302/27 quetiapine 100 mg tablet 100 mg PO BEDTIME 10/24/2304/29/24 tamsulosin 0.4 mg capsule 0.4 mg PO DAILY 10/24/2302/11 apixaban 5 mg tablet 5 mg PO BID 05/12/24 5 camphor 3.1 %-methyl salicylate 10 1 patch topical LEEANNA LY 02/27/25 02/27/25 %-menthol 6 % topical patch (large) divalproex 250 mg tablet,extended 750 mg PO BEDTIME 02/27/25 release 24 hr dronabinol 2.5 mg capsule 2.5 mg PO BID 02/27/2502/27 duloxetine 20 mg capsule,delayed 20 mg PO DAILY 02/27/25 release sprinkle finasteride 5 mg tablet 5 mg PO BEDTIME 02/27/2502/11 lidocaine 5 % topical patch 1 patch topical DAILY 02/1802/27/25 loperamide 2 mg capsule 2 mg PO TID PRN Diarrhea 02/1102/27/25 metoprolol tartrate 50 mg tablet 50 mg PO BID 02/27/25 02/27/25 pregabalin 100 mg capsule 100 mg PO BID 02/27/2502/27 quetiapine 25 mg tablet 25 mg PO DAILY 02/27/2502/18 Allergies Allergy/AdvReac Type Severity Reaction Status Date / Time dicyclomine (From Bentyl) Allergy Abdominal Verified 02/27/25 11:18 Pain mepivacaine Allergy Unknown Verified 02/27/25 11:18 Review of Systems 2 Review of Systems: Constitutional : No Fever, No Chills, No Fatigue ENT/Mouth : No sore throat, No Rhinorrhea Eyes: No Eye Pain, No Swelling, No Redness Cardiovascular : No Chest Pain, No SOB, No Dyspnea on Exertion Respiratory : No Cough, No Sputum Gastrointestinal : No Nausea, No Vomiting, No Diarrhea, No abdominal Pain Genitourinary : No Dysuria, No Urinary Frequency, No Hematuria, Musculoskeletal : Positive joint pain, positive Myalgias, No Joint Swelling Skin : No Skin Lesions, No rash Neuro : No Weakness, No Numbness, No Dizziness, no Headache All other systems reviewed and are negative PMFSH Past Medical History Attestation statement: The following information was validated with the patient. Source: old records reviewed Medical History Mood disorder Chronic diastolic heart failure PTSD (post-traumatic stress disorder) Coronary artery disease Diabetes mellitus Hypertension Irritable bowel syndrome Social History Social History Household Members: None Housing: Apartment Do you presently have visiting nurse or other home services: Yes ([facility] weekly) Alcohol intake: former Comment: refused bed alarm Patient Tobacco Use Status: Former Tobacco user Tobacco use type: Cigarette Advance Directives Date on File: 05/12/24 service: Yes Physical Exam ED Vital Signs: Vital Signs - 24 hr 03/06/25 20:18 03/07/25 06:00 03/07/25 07:50 Temperature 97 F Pulse Rate 64 60 Respiratory Rate 16 Blood Pressure 158/74 H 132/64 132/64 Pulse Oximetry 96 Oxygen Delivery Method Room Air 03/07/25 07:51 Temperature Pulse Rate 60 Respiratory Rate Blood Pressure 132/64 Pulse Oximetry Oxygen Delivery Method BMI result Body Mass Index 29.6 Appearance: Alert. Oriented X3. No acute distress. As I walk into his room I note that varies a lawn chair, a large black ductal bad, a large box with his belongings. He is unkempt. He does get upset with any questioning if it goes outside the floor where he wants to tell his story. He needs to be redirected with reassurance. Eyes: Pupils equal, round and reactive to light. ENT: Pharynx normal. Neck: Normal inspection. Neck supple. CVS: Normal heart rate and rhythm. Pulses normal. Respiratory: No respiratory distress. Breath sounds normal. Abdomen: Soft and nontender. Skin: Skin warm and dry. Normal skin color. Normal skin turgor. Extremities: No lower extremity edema. Neuro: Oriented X 3. No motor deficit. No sensory deficit. CN2-12 intact Course Reevaluation(s) Reevaluation #1: Per Araceli Mosher PA-C I have received another call from [facility], since the patient has been held for PT case management, he has continue light as for opiate pain medication. He is not prescribed opiate pain medication. Throughout the past days, some of the providers during the day have ordered single doses of opiate based pain medications. Overnight last night, I had ordered scheduled gabapentin, for his neuropathy. He does not have an acute injury. He has chronic neuropathy he takes Lyrica. At this time I am adding on p.r.n. Tylenol. The patient currently is refusing, his behavior is escalating he is becoming aggressive, he is demanding to speak to a provider. I will address this issue now....... Patient was sleeping, he apparently was able to be redirected with his behavior. Time: 05:36 Reevaluation #2: Time: 08:28 Date: 02/28/25 Provider: JOVANI Grissom Patient in physician observation for case management needs. No acute events reported overnight.? No current issues or complaints. VS stable. Awaiting disposition. Will continue to monitor. Time: 07:32 Date: 03/01/25 Provider: JVOANI Milian Patient in physician observation for case management needs. No acute events reported overnight.?VS stable. Patient is pending placement at facility. Will continue to monitor. Time: 08:10 Date: 03/02/25 Provider: JOVANI Milian Patient in physician observation for case management needs. No acute events reported overnight.? No current issues or complaints. VS stable. Patient is pending placement [facility] is able to offer a bed pending [facility] Level [address] Will continue to monitor. 18:54 PM 03/02/2025 (Kavon HAHN): THE PATIENT WAS QUITE AGITATED THAT HE WAS ONLY OFFERED 100 MILLIGRAMS OF GABAPENTIN P.O. TID. I DISCUSSED WITH THE PATIENT THAT I WAS ABLE TO REVIEW HIS EXTERNAL MED REC AND PRESCRIPTION MONITORING PROGRAM WHICH APPEARS TO SHOW 2 SEPARATE PRESCRIPTIONS, 1 FOR GABAPENTIN 100 MILLIGRAMS TID AND 1 FOR GAP IN THE 300 MILLIGRAMS TID. IT APPEARS THAT HE IS SUPPOSED TO BE ON 400 MILLIGRAMS TID WHICH WAS SPLIT UP. I OFFERED TO CONTINUING IN HIS FOR HIM WHILE HE WAS IN THE HOSPITAL. HE IS QUITE IRRITATED AND STATES THAT IF HE IS NOT GOING TO BE GIVEN 900 MILLIGRAMS 3 TIMES A DAY THEN HE DOES NOT WANT ANY GABAPENTIN AT ALL. I INFORMED HIM THAT I COULD NOT CONFIRM A DOSE OF 900 MILLIGRAMS TID I COULD NOT START THAT FOR HIM. HE ULTIMATELY DECLINED ANY GABAPENTIN AT THIS TIME. Time: 08:30 Date: 03/03/25 Provider: Juanis White PA-C Patient in physician observation for case management needs. No acute events reported overnight other than patient continuing asking for opiate pain medications. I had a detailed talk at bedside with him. His gabapentin has been ordered. VS stable. Patient is pending CM eval. Will continue to monitor. Time: 12:41 Date: 03/04/25 Provider: JOVANI Grissom Patient in physician observation for case management needs. No acute events reported overnight.? awaiting PT case management disposition. 5:16 PM 03/05/2025 (Shreya Caballero OFFICE TECHNOLOGY INSTRUCTOR): Physician observation continued, no overnight events reported by nursing. Patient remains in the ED while awaiting insurance authorization from the CT for rehab placement. Vital signs stable. 03/06/2025 0912 Ila Flores PA-C ---> Observation continues. Case management continues to follow. 03/07/2025 0739 Ila Flores PA-C ---> Observation care revealed the the patient does not meet medical necessity for hospitalization. Final disposition of discharge to [facility] discussed with the patient. Patient completed observation care at 0739 on 03/07/2025, total time spent in observation care was 7 days, 17 hours, and 11 minutes. Medications Administered Discontinued Medications Generic Name Dose Route Start Last Admin Trade Name Freq PRN Reason Stop Dose Admin Acetaminophen 975 mg 02/28/25 08:30 02/28/25 08:39 Acetaminophen 325 Mg Tablet PO 02/28/25 08:31 975 mg ONCE ONE Administration Acetaminophen 975 mg 03/01/25 05:12 03/05/25 19:31 Acetaminophen 325 Mg Tablet PO 975 mg Q6H PRN Administration Pain, Moderate(Pain Scale 4-6) Apixaban 5 mg 02/27/25 21:00 03/07/25 07:51 Apixaban 5 Mg Tablet PO 5 mg BID JACQUELIN Administration Divalproex Sodium 750 mg 02/27/25 21:00 03/06/25 20:18 Divalproex Sodium Er 250 Mg Tab.Er.24h PO 750 mg BEDTIME JACQUELIN Administration Docusate Sodium 100 mg 03/01/25 14:16 03/01/25 14:21 Docusate Sodium 100 Mg Capsule PO 03/01/25 14:17 100 mg ONCE ONE Administration Duloxetine HCl 20 mg 02/28/25 09:00 03/07/25 07:52 Duloxetine Hcl 20 Mg Capsule. PO 20 mg DAILY JACQUELIN Administration Finasteride 5 mg 02/27/25 21:00 03/06/25 20:17 Finasteride 5 Mg Tablet PO 5 mg BEDTIME JACQUELIN Administration Furosemide 40 mg 02/27/25 20:30 03/07/25 07:50 Furosemide 40 Mg Tablet PO 40 mg DAILY JACQUELIN Administration Protocol Gabapentin 100 mg 02/27/25 12:09 02/27/25 13:16 Gabapentin 100 Mg Capsule PO 02/27/25 12:10 100 mg ONCE ONE Administration Gabapentin 100 mg 02/28/25 09:00 03/07/25 07:51 Gabapentin 100 Mg Capsule PO Not Given TID JACQUELIN Lidocaine 1 patch 02/28/25 09:00 03/07/25 07:52 Lidocaine 4 % Patch Adh..Patch TRANSDERMA Not Given DAILY JACQUELIN Lorazepam 2 mg 03/02/25 20:01 03/02/25 20:16 Lorazepam 1 Mg Tablet PO 03/02/25 20:02 2 mg ONCE ONE Administration Metformin HCl 500 mg 02/27/25 21:00 03/07/25 07:52 Metformin Hcl 500 Mg Tablet PO 500 mg BID JACQUELIN Administration Metoprolol Tartrate 50 mg 02/27/25 21:00 03/07/25 07:51 Metoprolol Tartrate 50 Mg Tablet PO 50 mg BID JACQUELIN Administration Protocol Morphine Sulfate 15 mg 02/27/25 17:03 02/27/25 17:11 Morphine Sulfate Immed Release 15 Mg Tablet PO 02/27/25 17:04 15 mg ONCE ONE Administration Morphine Sulfate 15 mg 03/02/25 11:32 03/02/25 11:36 Morphine Sulfate Immed Release 15 Mg Tablet PO 03/02/25 11:33 15 mg ONCE ONE Administration Oxycodone HCl 5 mg 02/28/25 14:27 02/28/25 14:37 Oxycodone Hcl Immed Release 5 Mg Tablet PO 02/28/25 14:28 5 mg ONCE ONE Administration Polyethylene Glycol 17 gm 03/06/25 20:04 03/06/25 20:16 Polyethylene Glycol 3350 17 Gm Powd.Pack PO 17 gm BEDTIME PRN Administration Constipation Potassium Chloride 20 meq 02/27/25 14:28 02/27/25 14:43 Potassium Chloride Er 20 Meq Tab.Er.Prt PO 02/27/25 14:29 20 meq ONCE ONE Administration Potassium Chloride 40 meq 03/01/25 07:32 03/01/25 09:17 Potassium Chloride Packet 20 Meq Packet PO 03/01/25 07:33 40 meq ONCE ONE Administration Potassium Chloride 40 meq 03/06/25 10:44 03/06/25 10:48 Potassium Chloride Er 20 Meq Tab.Er.Prt PO 03/06/25 10:45 40 meq ONCE ONE Administration Pregabalin 100 mg 02/27/25 21:00 03/07/25 07:52 Pregabalin 100 Mg Capsule PO 100 mg BID JACQUELIN Administration Quetiapine Fumarate 25 mg 02/27/25 20:30 03/07/25 07:52 Quetiapine Fumarate 25 Mg Tablet PO 25 mg DAILY JACQUELIN Administration Quetiapine Fumarate 100 mg 02/27/25 21:00 03/06/25 20:17 Quetiapine Fumarate 100 Mg Tablet PO 100 mg BEDTIME JACQUELIN Administration Tamsulosin HCl 0.4 mg 02/27/25 20:30 03/07/25 07:52 Tamsulosin Hcl 0.4 Mg Capsule PO 0.4 mg DAILY JACQUELIN Administration Tizanidine HCl 2 mg 02/27/25 12:09 02/27/25 13:16 Tizanidine Hcl 4 Mg Tablet PO 02/27/25 12:10 2 mg ONCE ONE Administration Medical Decision Making Medical Decision Making MDM Narrative: 74-year-old male with past medical history of mood disorder, chronic diastolic CHF, CAD, PTSD, diabetes, hypertension, IBS, recent homelessness who presents with complaint of diffuse body aches but no infectious symptoms. He is very fixated on the fact that he has not had his medications in 1 month but tells me that the [facility] basically shut him off which seems unlikely given his full benefits. He has no SI or HI. He will need labs and I will restart him on his tizanidine and gabapentin. I have already involve case management as his story seems a little bit unusual and I can not imagine the [facility] told him to stop calling. Differential Diagnosis Differential Diagnoses: The differential diagnosis associated with the presentation includes Rhabdo, JESUS, electrolyte abnormality, homelessness, PTSD, bipolar Admission/Observation Consideration of admission/observation: Escalation of care including admission/observation considered Physician observation started to 230 p.m. pending PT and case management Consult Healthcare Provider Management of the patient was discussed with: Family Day Carer Lab Data MDM Lab Attestation statement: I reviewed the patient's lab results. 02/27/25 14:36 02/27/25 12:46 Labs: Lab Results 02/27/25 02/27/25 02/27/25 Range/Units 12:46 13:33 14:36 WBC 8.1 (4.8-10.8) X10*3/uL RBC 4.23 L (4.60-5.80) X10*6/uL Hgb 13.4 L (14.0-18.0) g/dl Hct 37.0 L (42.0-52.0) % MCV 87.5 (80.0-98.0) fL MCH 31.7 (27.0-33.0) pg MCHC 36.2 H (31.0-36.0) g/dl RDW 14.2 (11.0-16.0) % Plt Count 147 L (160-400) X10*3/uL MPV 10.6 (9.4-12.4) fL Immature Gran % (Auto) 0.2 (0.0-0.4) % Neut % (Auto) 59.5 (45-73) % Lymph % (Auto) 29.4 (20-40) % [place] % (Auto) 9.4 (2-11) % Eos % (Auto) 0.5 (0-4) % Baso % (Auto) 1.0 (0-2) % Lymph # (Auto) 2.4 (1.2-4.9) X10*3/uL [place] # (Auto) 0.8 (0.1-1.2) X10*3/uL Eos # (Auto) 0.0 (0.0-0.4) X10*3/uL Baso # (Auto) 0.1 (0.0-0.2) X10*3/uL Abs Immat Gran (auto) 0.02 (0.00-0.03) X10*3/uL Absolute Neuts (auto) 4.8 (2.0-8.3) x10*3/uL Absolute Nucleated RBC 0.000 (0.0-0.012) X10*3/uL Nucleated RBC % (auto) 0.0 (0.0-0.2) /100WBC Sodium 138 (135-145) mmol/L Potassium 3.2 L (3.3-5.1) mmol/L Chloride 108 (96-108) mmol/L Carbon Dioxide 22 (22-29) mmol/L Anion Gap 11 L (12-20) BUN 13 (9-16) mg/dL Creatinine 1.04 (0.5-1.4) mg/dL Estim Creat Clear Calc 67.3 Estimated GFR > 60 POC Glucose (60-115) mg/dL Random Glucose 141 H (60-115) mg/dL Calcium 9.8 (8.4-10.2) mg/dL Magnesium 1.9 (1.6-2.6) mg/dL Total Bilirubin 1.1 H (0.0-1.0) mg/dL Direct Bilirubin 0.2 (0.0-0.5) mg/dL AST 28 (5-37) U/L ALT 9 (0-40) U/L Alkaline Phosphatase 61 (39-117) U/L Total Creatine Kinase 138 (38-174) U/L Troponin I High Sens 27.2 (<3.5-35.0) ng/L C-Reactive Protein < 0.10 (< or = 0.50) mg/dL Total Protein 6.7 (6.5-8.0) g/dL Albumin 4.2 (3.5-5.0) g/dL Lipase 11 (8-78) U/L TSH 1.04 (0.32-4.0) uIU/mL Urine Color Yellow Urine Appearance Clear Urine pH 8.5 (5.0-9.0) Ur Specific [place] 1.020 (1.005-1.025) Urine Protein 30 (1+) H (Neg-Trace) mg/dL Urine Glucose (UA) Negative (Negative) mg/dL Urine Ketones Negative (Negative) mg/dL Urine Blood Negative (Negative) Urine Nitrite Negative (Negative) Ur Leukocyte Esterase Trace H (Negative) Urine RBC 0-2 (0-2) /HPF Urine WBC 0-5 (0-5) /HPF Ur Squamous Epith Cells 0-2 (0-2) /HPF Urine Bacteria None Seen (None Seen) Hyaline Casts 0-2 (0-2) /LPF Urine Opiates Screen Not Detected (Not Detect) Ur Buprenorphine Scrn Not Detected (Not Detect) ng/mL Ur Oxycodone Screen Not Detected (Not Detect) ng/mL Urine Methadone Screen Not Detected (Not Detect) ng/mL Urine Fentanyl Screen Not Detected (Not Detect) Ur Barbiturates Screen Not Detected (Not Detect) Ur Phencyclidine Scrn Not Detected (Not Detect) Ur Amphetamines Screen Not Detected (Not Detect) U Benzodiazepines Scrn Not Detected (Not Detect) Urine Cocaine Screen Not Detected (Not Detect) U Marijuana (THC) Screen POSITIVE H (Not Detect) Ethyl Alcohol < 10 mg/dL Influenza Type A (PCR) NEGATIVE (Negative) Influenza Type B (PCR) NEGATIVE (Negative) RSV RNA Qual (PCR) NEGATIVE (Negative) SARS-CoV-2 RNA (RT-PCR) NEGATIVE (Negative) 02/27/25 03/02/25 Range/Units 20:51 20:16 WBC (4.8-10.8) X10*3/uL RBC (4.60-5.80) X10*6/uL Hgb (14.0-18.0) g/dl Hct (42.0-52.0) % MCV (80.0-98.0) fL MCH (27.0-33.0) pg MCHC (31.0-36.0) g/dl RDW (11.0-16.0) % Plt Count (160-400) X10*3/uL MPV (9.4-12.4) fL Immature Gran % (Auto) (0.0-0.4) % Neut % (Auto) (45-73) % Lymph % (Auto) (20-40) % [place] % (Auto) (2-11) % Eos % (Auto) (0-4) % Baso % (Auto) (0-2) % Lymph # (Auto) (1.2-4.9) X10*3/uL [place] # (Auto) (0.1-1.2) X10*3/uL Eos # (Auto) (0.0-0.4) X10*3/uL Baso # (Auto) (0.0-0.2) X10*3/uL Abs Immat Gran (auto) (0.00-0.03) X10*3/uL Absolute Neuts (auto) (2.0-8.3) x10*3/uL Absolute Nucleated RBC (0.0-0.012) X10*3/uL Nucleated RBC % (auto) (0.0-0.2) /100WBC Sodium (135-145) mmol/L Potassium (3.3-5.1) mmol/L Chloride (96-108) mmol/L Carbon Dioxide (22-29) mmol/L Anion Gap (12-20) BUN (9-16) mg/dL Creatinine (0.5-1.4) mg/dL Estim Creat Clear Calc Estimated GFR POC Glucose 117 H 201 H (60-115) mg/dL Random Glucose (60-115) mg/dL Calcium (8.4-10.2) mg/dL Magnesium (1.6-2.6) mg/dL Total Bilirubin (0.0-1.0) mg/dL Direct Bilirubin (0.0-0.5) mg/dL AST (5-37) U/L ALT (0-40) U/L Alkaline Phosphatase (39-117) U/L Total Creatine Kinase (38-174) U/L Troponin I High Sens (<3.5-35.0) ng/L C-Reactive Protein (< or = 0.50) mg/dL Total Protein (6.5-8.0) g/dL Albumin (3.5-5.0) g/dL Lipase (8-78) U/L TSH (0.32-4.0) uIU/mL Urine Color Urine Appearance Urine pH (5.0-9.0) Ur Specific [place] (1.005-1.025) Urine Protein (Neg-Trace) mg/dL Urine Glucose (UA) (Negative) mg/dL Urine Ketones (Negative) mg/dL Urine Blood (Negative) Urine Nitrite (Negative) Ur Leukocyte Esterase (Negative) Urine RBC (0-2) /HPF Urine WBC (0-5) /HPF Ur Squamous Epith Cells (0-2) /HPF Urine Bacteria (None Seen) Hyaline Casts (0-2) /LPF Urine Opiates Screen (Not Detect) Ur Buprenorphine Scrn (Not Detect) ng/mL Ur Oxycodone Screen (Not Detect) ng/mL Urine Methadone Screen (Not Detect) ng/mL Urine Fentanyl Screen (Not Detect) Ur Barbiturates Screen (Not Detect) Ur Phencyclidine Scrn (Not Detect) Ur Amphetamines Screen (Not Detect) U Benzodiazepines Scrn (Not Detect) Urine Cocaine Screen (Not Detect) U Marijuana (THC) Screen (Not Detect) Ethyl Alcohol mg/dL Influenza Type A (PCR) (Negative) Influenza Type B (PCR) (Negative) RSV RNA Qual (PCR) (Negative) SARS-CoV-2 RNA (RT-PCR) (Negative) Independent Interpretation I performed an independent interpretation of an: EKG Interpretation: Rate: 49 Rhythm: Sinus bradycardia [place]: Normal Normal P waves. Normal N[place]. Normal QRS complex. ST T wave : No ST elevation nonspecific STT wave changes in 1 and aVL, has ST depression V4 V5 V6 qTC: 433 prior studies: All ST changes are chronic and not new The study has been interpreted contemporaneously by me. . Independent Historian Clinical information obtained from an independent historian. History obtained from or confirmed by: EMS External Record Review External record reviewed: Inpatient record and Outpatient record Chronic Conditions Patient?s care impacted by: Diabetes Social Determinants Patient?s care significantly limited by Social Determinants of Health including: Inadequate housing, Low income, Problems related to primary support group and Unemployment Discharge Plan Discharge Clinical Impression: Mood disorder, Hypokalemia, Neuropathy Patient Disposition: Xfer Other Transfer Details: Annalise Funez Instructions: Hypokalemia (ED) Additional Instructions: IF you are prescribed home medications and/or you are taking over the counter medications at home - it is very important you continue to do so as prescribed / directed unless told otherwise. Follow up with your primary care provider. Return to the emergency department immediately if your symptoms worsen or if you develop any numbness, tingling, dizziness, shortness of breath, difficulty breathing, chest pain, blurry vision, loss of vision, nausea, vomiting, abdominal pain, fever, chills, back pain, or any other complaints. Please see the information below about our Patient Portal. If you are not yet enrolled in the [facility] Patient Portal, you will receive an enrollment email invitation following your visit to any [facility] setting. You may also self-enroll in the Patient Portal by visiting our website: [email or web address] The following information is required to access the Patient Portal: - Your [facility] Medical Record Number - Your personal home email address (must match what is in your electronic medical record, Registration staff can assist with this) - Name - Date of Capabilities of the Patient Portal: - Message some providers - View upcoming appointments - Access your health summary, medical history, and visit history - View current conditions and allergies - View procedure and lab results - View your medications, including guidelines, side effects, and precautions - Complete pre-appointment questionnaires requested by your provider - Ready summary reports of your office visits and procedures To access the Patient Portal Mobile Robert, follow these directions: - Search [employer] in the Robert Store or Google Play Store - Download the Robert - Search for [facility] - Enter your login/password You were seen in our Emergency Department today for treatment of a behavioral health issue. It is important after your visit that you follow up with either your behavioral health provider or a primary care doctor within 7 days.? If you have trouble finding a therapist you can reach out to [place] [phone] The National Suicide and Crisis Lifeline can be reached 7 days a week 24 hours a day.? Call 988 to speak with someone.? Return for any worsening symptoms or concerns such as thoughts of self harm or harm to others. Please call 911 if you feel your mental health is worsening.? Prescriptions: No Action apixaban 5 mg Tablet 5 mg PO BID camphor-methyl salicyl-menthol 3.1 %-10 %-6 % (large) Adhesive Patch,Medicated 1 patch TOPICAL DAILY Rx Instructions: may leave on for up to 12 hrs divalproex 250 mg Tablet Extended Release 24 Hr 750 mg PO BEDTIME duloxetine 20 mg Capsule, Delayed Rel Sprinkle 20 mg PO DAILY finasteride 5 mg Tablet 5 mg PO BEDTIME lidocaine 5 % Adhesive Patch,Medicated 1 patch TOPICAL DAILY Rx Instructions: leave on most painful area for up to 12 hrs loperamide 2 mg Capsule 2 mg PO TID PRN (Reason: Diarrhea) metoprolol tartrate 50 mg Tablet 50 mg PO BID pregabalin 100 mg Capsule 100 mg PO BID quetiapine 25 mg Tablet 25 mg PO DAILY dronabinol 2.5 mg Capsule 2.5 mg PO BID Rx Instructions: administer before lunch and evening meal/dinner furosemide 40 mg Tablet 40 mg PO DAILY metformin 500 mg Tablet 500 mg PO BID quetiapine 100 mg Tablet 100 mg PO BEDTIME tamsulosin 0.4 mg Capsule 0.4 mg PO DAILY Referrals: Annalise Villarreal [place] [Outside] Referral Note: [address] [place] [address] Oliver Scott MD [Primary Care Provider, Internal Medicine] Interventions: ED Discharge Assessment Last Done: 03/07/25 09:33 Discharge Date/Time: 03/07/25 09:35 Print Language: Danish
--- NOTE | 2025-02-27 12:08 | ECG_ITS ---
Test Reason : Weakness Blood Pressure : */* mmHG Vent. Rate : 49 BPM Atrial Rate : 49 BPM P-R Int : 148 ms QRS Dur : 98 ms QT Int : 480 ms P-R-T Axes : 22 24 188 degrees QTcB Int : 433 ms Sinus bradycardia Possible Left atrial enlargement Nonspecific ST and T wave abnormality Abnormal ECG When compared with ECG of 02-Aug-2024 14:20, Criteria for Septal infarct are no longer Present ST now depressed in Anterolateral leads T wave inversion no longer evident in Anterior leads Referred By: Carol Stephen Electronically Signed By: EDWARD ROMERO MD
[2025-02-27 12:55] VITALS: BP 199/71; PULSE 61; RESP 18; TEMP 36.8; O2SAT 98
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
[2025-02-27 13:34] LABS: Troponin-I High Sensitivity 27.2 ng/L (<3.5-35.0)
[2025-02-27 13:35] LABS: Resp Syncy Virus RNA Qual PCR NEGATIVE (Negative); SARS COV2 PCR INHOUSE NEGATIVE (Negative)
[2025-02-27 13:43] LABS: Appearance Urine Clear; Glucose Urine UA Negative (Negative); PH 8.5 (5.0-9.0); Specific Gravity - Urine 1.020 (1.005-1.025); UMIC TRIGGER UACC YES
[2025-02-27 13:46] LABS: Alanine Aminotransferase 9 U/L (0-40); Albumin Level 4.2 g/dL (3.5-5.0); Alkaline Phosphatase 61 U/L (39-117); Anion Gap 11 (12-20); Aspartate Amino Transferase 28 U/L (5-37); Blood Urea Nitrogen 13 mg/dL (9-16); Calcium 9.8 mg/dL (8.4-10.2); Carbon Dioxide 22 mmol/L (22-29); Chloride 108 mmol/L (96-108); Creatinine Clr Calc Pharmacy 67.3; Estimated Glomerular Filt Rate > 60; Lipase 11 U/L (8-78); Magnesium 1.9 mg/dL (1.6-2.6); Potassium 3.2 mmol/L (3.3-5.1); Sodium 138 mmol/L (135-145); Total Protein 6.7 g/dL (6.5-8.0)
--- NOTE | 2025-02-27 13:53 | PC.NURSE ---
pt medicated per MAR- advised pt he is receiving tizanidine abd gabapentin fo 10/ whole body pain, to which pt replied that's it? pt refusing vitals and treatment until food is provided. T/W was able deescalate pt to obtain labs and vitals from patient. of note, pt becomes extremely agitated with any care- refusing to change into hospital attire at this time. pt observed standing independently using urinal in exam room- UA/UDS sent. pt uses cane and RW at baseline- currently awaiting PT/CM consult. care ongoing
--- NOTE | 2025-02-27 14:00 | PC.NURSE ---
Pt requesting RN contact physical therapy again for a second assessment. PT aware.
[2025-02-27 14:02] LABS: Cannabinoid Screen Urine POSITIVE (Not Detect)
--- OUTSIDE RECORDS SUMMARY | 2025-02-27 14:20 | XMS_ITS | Clinical Summary ---
Author Organization [facility] [address] [facility] Address [address] [place] [address] Phone Care Team Providers Care Oracle Applications Developer Name Role Phone Unavailable Primary Care Provider Unavailabl e Allergies Active Allergy Reactions Criticality Noted Date Comments Dicyclomine 10/16/2024 Medications aspirin 81 mg EC tablet Take 1 tablet (81 mg total) by mouth 1 (one) time each day. 10/17/2023 Active gabapentin (NEURONTIN) 600 mg tablet Take 1.5 tablets (900 mg total) by mouth 3 (three) times a day. 12/28/2023 Active Lantus Solostar U-100 Insulin 100 unit/mL (3 mL) injection pen Inject 20 Units under the skin 1 (one) time each day. 06/10/2024 Active isosorbide mononitrate (IMDUR) 30 mg 24 hr tablet Take 1 tablet (30 mg total) by mouth 1 (one) time each day. 10/29/2021 Active metFORMIN (GLUCOPHAGE) 500 mg tablet Take 1 tablet (500 mg total) by mouth 2 (two) times a day with meals. 10/01/2016 Active nabumetone (RELAFEN) 500 mg tablet Take 1 tablet (500 mg total) by mouth 2 (two) times a day. 03/12/2007 Active apixaban (ELIQUIS) 5 mg tablet Take 1 tablet (5 mg total) by mouth 2 (two) times a day. 60 each 10/20/2024 Active furosemide (LASIX) 20 mg tablet Take 1 tablet (20 mg total) by mouth 2 (two) times daily morning and afternoon. 70 each 10/21/2024 Active metoprolol tartrate (LOPRESSOR) 100 mg tablet Take 1 tablet (100 mg total) by mouth 2 (two) times a day. 70 each 10/21/2024 Active sertraline (ZOLOFT) 50 mg tablet Take 1 tablet (50 mg total) by mouth at bedtime. 60 each 10/21/2024 Active QUEtiapine (SEROquel) 25 mg tablet Take 1 tablet (25 mg total) by mouth 2 (two) times a day. 62 each 10/21/2024 Active Active Problems Problem Noted Date Diagnosed Date Acute on chronic congestive heart failure, unspecified heart failure type ([facility] V24, [facility] V28) 10/16/2024 Medical History Medical History Date Comments Diabetes mellitus ([facility] V24, [facility] V28) Hypertension WA (myocardial infarction) ([facility] V24, [facility] V28) Atrial fibrillation ([facility] V24, [facility] V28) CHF (congestive heart failure) ([facility] V24, [facility] V28) Asthma Anxiety Depression PVD (peripheral vascular disease) ([facility] V24) CAD (coronary artery disease) IBS (irritable bowel syndrome) Social History Tobacco Use Types Packs/Day Years Used Date Smoking Tobacco: Never Smokeless Tobacco: Never Tobacco Cessation:Counseling Given: No Interpersonal Safety Answer Date Record ed Physical Abuse Unrecognized value 10/17/2024 Verbal Abuse Unrecognized value 10/17/2024 Sex and Gender Information Value Date Recorded Sex Assigned at Not on file Legal Sex Male 9:36 AM EST Gender Identity Not on file Sexual Orientation Not on file Obstetrics History Last Filed Vital Signs Vital Sign Reading Time Taken Comments Blood Pressure 116/73 10/24/2024 10:03 AM EDT Pulse 60 10/24/2024 10:03 AM EDT Temperature 36.6 C (97.9 F) 10/24/2024 10:03 AM EDT Respiratory Rate 18 10/24/2024 10:03 AM EDT Oxygen Saturation 98% 10/24/2024 10:03 AM EDT Inhaled Oxygen Concentration - - Weight 90.7 kg (200 lb) 10/21/2024 3:02 PM EDT Height 172.7 cm (5' 8 ) 10/21/2024 3:02 PM EDT Body Mass Index 30.41 10/21/2024 3:02 PM EDT Plan of Treatment Health Maintenance Due Date Last Done Comments Colorectal Cancer Screening: Colonoscopy 1950 Diabetes: Annual Foot Exam 1960 Diabetes: Annual Retina Eye Exam 1960 Hepatitis C Screening 03/23/2022 Medicare Annual Wellness Visit 03/23/2022 Social Influencers of Health Screening 03/23/2022 DTaP,Tdap,and Td Vaccines (3 - Td or Tdap) 02/08/2024 02/07/2014, 03/31/2000 Depression Screening 04/20/2024 Diabetes: Annual Urine Albumin-Creatinine Ratio (uACR) 10/16/2024 COVID-19 Vaccine ( season) 2024 02/12/2023, 04/10/2021, 09/25/2020, Additional history exists Influenza Vaccine (#1) 2024 , 02/12/2023, 02/12/2023, Additional history exists Diabetes: Blood Sugar Control Test (HGBA1C) 04/17/2025 10/16/2024 Diabetes: Annual GFR (Glomerular Filtration Rate) 10/21/2025 10/21/2024, 10/21/2024, 10/20/2024, Additional history exists Falls Risk Assessment 10/21/2025 10/21/2024 Hypertension/CHF/CAD Annual BMP Blood Test 10/21/2025 10/21/2024, 10/21/2024, 10/20/2024, Additional history exists Cholesterol Screening (Lipid Panel) 10/16/2029 10/16/2024 Pneumococcal Vaccine: 50+ Years Completed 09/26/2017, 09/25/2016, 01/19/2015, Additional history exists RSV Immunization Adult Patients Completed 02/12/2023 Zoster Vaccines Completed 05/28/2023, 01/19, 11/11/2019, Additional history exists HIB Vaccines Aged Out No longer eligi [...] to complete this topic RSV Immunization Patients Under 20 months Aged Out No longer eligible based on patient's age to complete this topic Varicella Vaccines Aged Out No longer eligible based on patient's age to complete this topic Procedures Procedure Name Priority Date/Time Associated Diagnosis Comments BASIC METABOLIC PANEL STAT 10/21/2024 7:18 PM EDT HEMOGLOBIN A1C Add-On 10/16/2024 4:22 PM EDT LIPID PANEL WITH REFLEX TO DIRECT LDL Add-On 10/16/2024 4:22 PM EDT from Last 3 Months or Most Recently Relevant to Health Maintenance Results * (ABNORMAL) Basic metabolic panel (10/21/2024 7:18 PM EDT) Sodium 135 133 - 145 mmol/L LAB CHEMISTRY METHOD 10/21/2024 7:58 PM [facility] Potassium 4.3 3.5 - 5.5 mmol/L LAB CHEMISTRY METHOD 10/21/2024 7:58 PM [facility] Chloride 97 96 - 110 mmol/L LAB CHEMISTRY METHOD 10/21/2024 7:58 PM [facility] CO2 33(H) 21 - 32 mmol/L LAB CHEMISTRY METHOD 10/21/2024 7:58 PM [facility] Anion Gap 5 3 - 11 LAB CHEMISTRY METHOD 10/21/2024 7:58 PM [facility] Glucose 176(H) 70 - 100 mg/dL LAB CHEMISTRY METHOD 10/21/2024 7:58 PM [facility] BUN 27(H) 5 - 25 mg/dL LAB CHEMISTRY METHOD 10/21/2024 7:58 PM [facility] Creatinine 1.39(H) 0.70 - 1.30 mg/dL LAB CHEMISTRY METHOD 10/21/2024 7:58 PM EDT [facility] eGFR 53(L) >=60 mL/min/1. 73m2 LAB CHEMISTRY METHOD 10/21/2024 7:58 PM EDT [facility] Comment:Calculation based on the Chronic Kidney Disease Epidemiology Collaboration (CKD-EPI) equation refit without adjustment for race. BUN/Creatinine Ratio 19.4 LAB CHEMISTRY METHOD 10/21/2024 7:58 PM EDT [facility] Calcium 10.2 8.5 - 10.5 mg/dL LAB CHEMISTRY METHOD 10/21/2024 7:58 PM EDT [facility] Blood Venous blood specimen / Unknown Venipuncture / Unknown 10/21/2024 7:18 PM EDT 10/21/2024 7:25 PM EDT Khoi B Giuseppe RANDLE LAB BLOOD ORDERABLES Final Resu lt [facility] [address] [place] [address], * Lipid panel with reflex to direct LDL (10/16/2024 4:22 PM EDT) Cholesterol 176 0 - 200 mg/dL LAB CHEMISTRY METHOD 10/16/2024 10:55 PM EDT [facility] Triglycerides 139 0 - 150 mg/dL LAB CHEMISTRY METHOD 10/16/2024 10:55 PM EDT [facility] HDL 48 >=40 mg/dL LAB CHEMISTRY METHOD 10/16/2024 10:55 PM EDT [facility] LDL Calculated 100 0 - 100 mg/dL LAB CHEMISTRY METHOD 10/16/2024 10:55 PM EDT [facility] VLDL Cholesterol Javy 27.8 mg/dL LAB CHEMISTRY METHOD 10/16/2024 10:55 PM EDT [facility] Non HDL Chol. (LDL+VLDL) 128 <145 mg/dL LAB CHEMISTRY METHOD 10/16/2024 10:55 PM EDT [facility] Chol/HDL Ratio 3.7 0.0 - 4.4 LAB CHEMISTRY METHOD 10/16/2024 10:55 PM EDT [facility] Blood Venous blood specimen / Unknown Venipuncture / Unknown 10/16/2024 4:22 PM EDT 10/16/2024 4:39 PM EDT Wilfredo HAHN LAB BLOOD ORDERABLES Final Resu lt [facility] [address] [place] [address], [place] [phone] * Hemoglobin A1c (10/16/2024 4:22 PM EDT) Hemoglobin A1C 6.2 <6.5 % LAB CHEMISTRY METHOD 10/17/2024 12:42 PM EDT [facility] Mean Bld Glu Estim. 131 mg/dL LAB CHEMISTRY METHOD 10/17/2024 12:42 PM EDT [facility] Blood Venous blood specimen / Unknown Venipuncture / Unknown 10/16/2024 4:22 PM EDT 10/16/2024 4:39 PM EDT Daniel Davidson MD LAB BLOOD ORDERABLES Final Result [facility] [address] [place] [address], [place] [phone] from Last 3 Months or Most Recently Relevant to Health Maintenance Insurance [employer] [facility] Advance Directives * Full Code - Default (Latest Code Status on File) Date Activated Date Inactivated Comments 10/16/2024 9:40 PM 10/21/2024 4:33 PM This is order is used when code status has not been discussed with the patient, or code status is otherwise unknown/unconfirmed To update the patient's code status, place a code status order. Do not modify or discontinue any currently active code status orders.
--- OUTSIDE RECORDS SUMMARY | 2025-02-27 14:22 | XMS_ITS | Encounter Summary ---
Author Organization [facility] Address [address] [place] [address] Phone Care Team Providers Care Bait Digger Name Role Phone Oliver Scott MD Primary Care Provider + Encounter Details Date Type Department Care Team ([facility] st Contact Info) Description 05/23/2024 Procedure [facility] [address] [place] [address] Social History Tobacco Use Types Packs/Day Years Used Date Smoking Tobacco: Former Cigarettes Smokeless Tobacco: Never Alcohol Use Standard Drinks/Week Comments Not Currently 0 (1 standard drink = 0.6 oz pur e alcohol) Education Answer Date Recorded Are you interested in more education? Not on sandy e 08/15/2022 Are you concerned about learning? Not on file 08/15/2022 No 08/15/2022 No 08/15/2022 Food Answer Date Recorded Within the past 6 months we worried whether our food would run out before we got money to buy more. Never True 05/23/2024 Within the past 6 months the food we bought just didn't last and we didn't have enough money to get more. Never True Residential Stability Answer Date Recor ded What is your housing situation today? I have zita sing 05/23/2024 How many times have you move d in the past 12 months? Zero (I did not move) 05/23/2024 Paying for Meds Answer Date Recorded Do you have trouble paying for medicines? No 05/23/2024 Paying Utility Bills Answer Date Record ed Do you have trouble paying your heating or elect ricity bill? No 05/23/2024 Transportation Answer Date Recorded Has the lack of transportati on kept you from medical appointments or from getting medications? Yes 05/23/2024 Digital Access Answer Date Recorded Yes 05/23/2024 No 05/23/2024 Do you have reliable internet access at home? No 05/23/2024 Do you have a device (e.g., phone, tablet, computer) with a working camera? No 05/23/2024 Intimate Partner Violence Answer Date R ecorded Are you denied basic needs s uch as food, clothing, or medical care? No 05/21/2024 In the past 12 months have y ou been in a relationship with a person who hurts, threatens, or tries to control you? No 05/21/2024 Are you denied basic needs s uch as food, clothing, or medical care? No 05/21/2024 In the past 12 months have y ou been in a relationship with a person who hurts, threatens, or tries to control you? No 05/21/2024 Sex and Gender Information Value Date Recorded Sex Assigned at Male 12/19/2021 10:55 PM EDT Legal Sex Male 10:02 PM EDT Gender Identity Male 12/19/2021 10:55 PM EDT Sexual Orientation Not on file documented as of this encounter Plan of Treatment Not on file documented as of this encounter Visit Diagnoses Not on filedocumented in this encounter Additional Health Concerns Infection Onset Date Last Indicated Resolved Time CoV-Risk Comment:Per note documentation 05/21/2024 05/21/2024 1:19 PM EST CDiff-Risk 05/24/2024 05/24/2024 05/24/2024 2:00 PM EST documented as of this encounter Care Teams Bait Digger Relationship Specialty Start Date End Date Oliver Scott MD [address] [place] [address] PCP - General Internal Medicine 12/19/21 documented as of this encounter Additional Source Comments The information contained in this document represents components of the legal health record. It is not the complete legal health record.[facility]
--- OUTSIDE RECORDS SUMMARY | 2025-02-27 14:22 | XMS_ITS | Clinical Summary ---
Author Organization [facility] Address [address] [place] [address] Phone Care Team Providers Care Estate Planning Attorney Name Role Phone Oliver Scott MD Primary Care Provider + Allergies Active Allergy Reactions Criticality Noted Date Comments Dicyclomine Nausea and/or Vomiting 06/22/1995 Medications divalproex (DEPAKOTE ER) 500 MG ER 24 hr tablet Take 1,000 mg by mouth nightly at bedtime. Active oxyBUTYnin (DITROPAN) 5 MG tablet Take 5 mg by mouth nightly at bedtime. Active tamsulosin (FLOMAX) 0.4 mg Cap Take 0.4 mg by mouth daily. Active QUEtiapine (SEROQUEL) 100 MG tablet Take 100 mg by mouth nightly at bedtime. Active isosorbide mononitrate (IMDUR) 30 MG 24 hr tablet Take 30 mg by mouth daily. Active tiZANidine (ZANAFLEX) 2 MG tablet Take 2 mg by mouth 3 (three) times a day as needed (muscle spasms). Active gabapentin (NEURONTIN) 600 MG tablet Take 900 mg by mouth 3 (three) times a day. Active metFORMIN (GLUCOPHAGE) 500 MG tablet Take 500 mg by mouth 2 (two) times a day with meals. Active insulin glargine (LANTUS) 100 unit/mL injection vial Inject 60 Units under the skin nightly at bedtime. Active furosemide (LASIX) 40 MG tablet Take 40 mg by mouth daily. Active morphine (MSIR) 15 MG tablet Take 15 mg by mouth every 4 (four) hours as needed for pain (specific location in comments) (severe pain (7-10)). Active acetaminophen (TYLENOL) 325 mg tablet Take 650 mg by mouth every 6 (six) hours as needed for fever or pain (specific location in comments) (temp > 99). Active metoprolol tartrate (LOPRESSOR) 50 MG tablet Take 50 mg by mouth 2 (two) times a day. Active traZODone (DESYREL) 100 MG tablet Take 100 mg by mouth nightly at bedtime. Active aspirin 81 MG EC tablet Take 81 mg by mouth daily. Active atorvastatin (LIPITOR) 40 MG tablet Take 40 mg by mouth daily. Active apixaban (ELIQUIS) 5 mg tablet Take 5 mg by mouth 2 (two) times a day. Active monobasic and dibasic sodium phosphates (61961 ENEMA) 19-7 gram/[address] 1 enema rectally daily as needed (For constipation if Dulcolax ineffective). Active magnesium hydroxide (MOM) 400 mg/5 mL Susp Take 2,400 mg by mouth daily as needed (if no bowel movement after 3 days). Active bisacodyl (DULCOLAX) [address] 10 mg rectally daily as needed (for constipation if Milk of Magnesia ineffective). Active amiodarone (NEXTERONE) 1.8 mg/mL infusion Inject 1 mg/min into the vein continuous. Active amiodarone (NEXTERONE) 1.8 mg/mL infusion Inject 0.5 mg/min into the vein continuous for 1 day. Active heparin 100 units/mL infusion Inject 0-2,293.2 Units/hr into the vein continuous. Active loperamide (IMODIUM) 2 mg capsule Take 2 capsules (4 mg total) by mouth 4 (four) times a day. Active heparin 100 units/mL infusion Inject 0-2,293.2 Units/hr into the vein continuous. Active amiodarone (PACERONE) 200 MG tablet Take 1 tablet (200 mg total) by mouth 2 (two) times a day. Active Active Problems Problem Noted Date Diagnosed Date Diarrhea of presumed infectious origin Assessment & Plan (05/24/2024 10:42 AM EST): Patient coming in from facility with diarrhea. Could be secondary to possible norovirus outbreak Contact isolation ordered, C. difficile testing ordered Continue scheduled loperamide Elevated troponin 05/23/2024 Assessment & Plan (05/24/2024 10:39 AM EST): Was recently admitted to [facility] and had troponin elevation at 235 ng/L and elevated to 324 ng/L during admission. Now with elevated troponins measured again in the setting of atrial fibrillation with rapid ventricular response. Possibly related to a troponin leak related to a type II NSTEMI and not related to a plaque rupture. Cardiology consulted, recommended to continue aspirin and statin with metoprolol Patient also started on Imdur 30 TTE and stress test ordered Assessment & Plan (05/23/2024 12:35 AM EST): Was recently admitted to [facility] and had troponin elevation at 235 ng/L and elevated to 324 ng/L during admission. Now with elevated troponins measured again in the setting of atrial fibrillation with rapid ventricular response. I anticipate that this is likely related to a troponin leak related to a type II NSTEMI and not related to a plaque rupture. ED discussed the case with cardiology and they will see the patient in the morning. Generalized weakness 05/23/2024 Assessment & Plan (05/24/2024 10:39 AM EST): We will have case management and physical therapy evaluating the patient. He is coming from [facility], but patient does not want to go back there for rehabilitation. It appears that he was at [facility] as well 2 weeks ago. Assessment & Plan (05/23/2024 12:35 AM EST): We will have case management and physical therapy evaluating the patient. He is coming from [facility], but patient does not want to go back there for rehabilitation. It appears that he was at [facility] as well 2 weeks ago. Atrial fibrillation with RVR 05/22/2024 Assessment & Plan (05/24/2024 10:39 AM EST): Given 10 mg of IV metoprolol in the emergency department and is now back in sinus rhythm. Continuing home dose of metoprolol, heart rate is controlled Assessment & Plan (05/23/2024 12:35 AM EST): Given 10 mg of IV metoprolol in the emergency department and he is now back in sinus rhythm. We will continue with his home dose of oral metoprolol. He has a preserved ejection fraction on prior echocardiogram so if we need to start him on a calcium channel ramesh this could be used as well. Chronic diastolic heart failure Overview (05/22/2024): TTE at [facility] 02/2024 with LVEF 60-70% Assessment & Plan (05/24/2024 10:39 AM EST): He has lymphedema, but no rales. He has a mild JESUS, but likely is hypovolemic in the setting of voluminous diarrhea, will hold off on furosemide. We will monitor daily weights and I's and O's. Assessment & Plan (05/23/2024 12:35 AM EST): He has lymphedema, but no rales. He has a mild JESUS, but I feel that he likely is hypovolemic in the setting of voluminous diarrhea. I will hold off on furosemide. I will monitor daily weights and I's and O's. 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 Will hold metformin in the setting of mild JESUS. Assessment & Plan (05/23/2024 12:35 AM EST): We will continue with basal bolus insulin therapy. Will hold metformin in the setting of mild JESUS. Social History Tobacco Use Types Packs/Day Years Used Date Smoking Tobacco: Former Cigarettes Smokeless Tobacco: Never Tobacco Cessation:Counseling Given: Not Answered Alcohol Use Standard Drinks/Week Comments Not Currently [...] your housing situation today? I have zita escobedo 05/23/2024 How many times have you move [...] PM EDT Sexual Orientation Not on file Last Filed Vital Signs Vital Sign Reading Time Taken Comments Blood Pressure 130/56 05/25/2024 12:18 PM EST Pulse 61 05/25/2024 12:18 PM EST Temperature 36.6 C (97.9 F) 05/25/2024 12:15 PM EST Respiratory Rate 16 05/25/2024 12:15 PM EST Oxygen Saturation 96% 05/25/2024 12:15 PM EST Inhaled Oxygen Concentration - - Weight 93.6 kg (206 lb 5.6 oz) 05/23/2024 5:25 P M EST Height 172.7 cm (5' 7.99 ) 05/23/2024 5:25 PM ES T Body Mass Index 31.38 05/23/2024 5:25 PM EST Plan of Treatment Health Maintenance Due Date Last Done Comments Adult Td,Tdap Booster 1950 BLOOD PRESSURE 1950 HEMOGLOBIN A1C 1950 TSH LEVEL 1950 VALPROIC ACID (DEPAKENE) LEVEL 1950 DEPRESSION SCREENING 1962 SMOKING Hx and SMOKELESS TOBACCO SCREENING 1963 HEPATITIS C SCREENING 1968 PNEUMOCOCCAL VACCINES (50+ years) (1 of 2 - PCV) 1969 COLOGUARD 1995 COLONOSCOPY 1995 COLORECTAL CANCER SCREENING 1995 FIT TEST 1995 FOBT 1995 SIGMOIDOSCOPY 1995 VIRTUAL COLONOSCOPY 1995 RSV VACCINE (1 - Risk 50-74 years 1-dose series) 2000 ABDOMINAL AORTIC ANEURYSM (AAA) SCREENING 2015 DIABETIC EYE EXAM 05/23/2024 URINE MICROALBUMIN/CREATININE RATIO 05/23/2024 INFLUENZA VACCINE (#1) 2024 7, 02/12/2006, 04/09/2005, Additional history exists COVID-19 VACCINE (1 - season) 2024 ALT LEVEL (ALANINE AMINOTRANSFERASE) 05/21/2025 05/21/2024, 03/01/2024 CREATININE LEVEL 05/24/2025 05/24/2024, 05/2024, 05/21/2024, Additional history exists ZOSTER VACCINES Completed 02/13/2021, 10/19, 04/28/2013 HEPATITIS A VACCINES Aged Out No long er eligible based on patient's age to complete this topic HIB VACCINES Aged Out No longer eligi ble based on patient's age to complete this topic IPV VACCINES Aged Out No longer eligi ble based on patient's age to complete this topic MENINGOCOCCAL VACCINES (ACWY) Aged Out No longer eligible based on patient's age to complete this topic MENINGOCOCCAL VACCINES (B) Aged Out N o longer eligible based on patient's age to complete this topic Medical Devices Not on file Procedures Procedure Name Priority Date/Time Associated Diagnosis Comments BASIC METABOLIC PANEL (BMP) STAT 05/24/2024 10:43 AM EST LFTS (HEPATIC PANEL) STAT 05/21/2024 9:49 AM EST from Last 3 Months or Most Recently Relevant to Health Maintenance Results * (ABNORMAL) Basic metabolic panel (05/24/2024 10:43 AM EST) SODIUM 139 133 - 146 mmol/L [facility] CHLORIDE 102 96 - 108 mmol/L [facility] POTASSIUM 3.4 3.3 - 5.1 mmol/L [facility] CO2 23 21 - 35 mmol/L [facility] BUN 12 6 - 19 mg/dL [facility] CREATININE 1.30 0.5 - 1.5 mg/dL [facility] GLUCOSE 99 70 - 99 mg/dL [facility] CALCIUM 9.2 8.4 - 10.3 mg/dL [facility] EGFR 58(L) >59 mL/min/1.7 3m2 [facility] Comment:Estimated glomerular filtration rate calculated using the CKD-EPI refit equation. ANION GAP 17 10 - 20 mmol/L [facility] Blood 05/24/2024 10:4 3 AM EST 05/24/2024 11:34 AM EST us Alie Phelps MD LAB BLOOD BKR ORDERABLES Final R esult [address] [address] * LFTs (hepatic panel) (05/21/2024 9:49 AM EST) ALKALINE PHOSPHATASE 72 39 - 117 U/L [facility] TOTAL BILIRUBIN 0.6 0.0 - 1.2 mg/dL [facility] DIRECT BILIRUBIN <0.2 0 - 0.3 mg/dL [facility] Bilirubin (Indirect) NOT CALCULATED 0 - 1.5 mg/dL [facility] AST 27 0 - 37 U/L [facility] ALT 8 0 - 40 U/L [facility] TOTAL PROTEIN 6.9 6.5 - 8.0 g/dL [facility] ALBUMIN 4.0 3.9 - 4.8 g/dL [facility] GLOBULIN 2.9 1 - 4.8 g/dL [facility] A/G Ratio 1.38 1.00 - 4.80 RATIO [facility] Blood 05/21/2024 9:49 AM EST 05/21/2024 1:49 PM EST Melba Poole PA-C LAB BLOOD BKR ORDERAB LES Final Result Performing Organization Address City/State/[facility] Co de Phone Number [address] [address] from Last 3 Months or Most Recently Relevant to Health Maintenance Insurance [employer] [facility] [employer] [facility] [employer] [facility] [employer] [employer] [facility] [facility] [employer] [employer] [facility] [employer] [employer] [facility] [place] [employer] [facility] [place] [employer] [facility] [employer] [employer] RE[employer]ACEMENT [facility] Advance Directives For more information, please contact: [phone] (9AM - 5PM [facility], Thursday-Thursday) Documents on File Type Date Recorded Patient Process Manager Expl anation Healthcare Proxy 05/24/2024 9:43 AM * Full Code (Latest Code Status on File) Date Activated Date Inactivated Comments 05/23/2024 12:34 AM Question Answer Comments Code Status Confirmed With: Patient Care Teams Estate Planning Attorney Relationship Specialty Start Date End Date Oliver Scott MD [address] [place] [id number] PCP - General Internal Medicine 12/19/21 Additional Source Comments The information contained in this document represents components of the legal health record. It is not the complete legal health record.[facility]
[2025-02-27] MEDS: Potassium Chloride ER 20 MEQ TAB.ER.PRT PO (14:43)
[2025-02-27 14:44] LABS: Hematocrit 37.0 % (42.0-52.0); Hemoglobin 13.4 g/dl (14.0-18.0); Imm Gran Abs Auto 0.02 X10*3/uL (0.00-0.03); Imm Gran Pct Auto 0.2 % (0.0-0.4); Lymphocytes Absolute Auto 2.4 X10*3/uL (1.2-4.9); Mean Corpuscular HGB Conc 36.2 g/dl (31.0-36.0); Mean Corpuscular Hemoglobin 31.7 pg (27.0-33.0); Mean Corpuscular Volume 87.5 fL (80.0-98.0); NRBC Abs Auto 0.000 X10*3/uL (0.0-0.012); NRBC Pct Auto 0.0 /100WBC (0.0-0.2); Platelet Count 147 X10*3/uL (160-400); Red Blood Count 4.23 X10*6/uL (4.60-5.80); White Blood Count 8.1 X10*3/uL (4.8-10.8)
[2025-02-27 14:58] LABS: MANUAL DIFF FLAG NO
--- NOTE | 2025-02-27 16:17 | PC.NURSE ---
t/w was notified of pt request for additional pain medication. pt sts he was given something stupid and wants to see what else there is pt is phys obs at this time. awaiting provider.
--- NOTE | 2025-02-27 16:28 | PC.NURSE ---
pt sts that he [facility] well as [facility], per electronic Rx records, pt had meds dispensed in 05/2024 and 10/2024, however there is no history awailable after those dates. Spoke with Steph in pharmacy, will have Med rec RPh contact the [facility] for records.
[2025-02-27] MEDS: Morphine Sulfate Immed Release 15 MG TABLET PO (17:11)
--- NOTE | 2025-02-27 17:14 | PC.NURSE ---
pt medicated per JUN for 01/27 all over body pain
--- NOTE | 2025-02-27 17:26 | PC.NURSE ---
report given to RAMA Pacheco pt to be transported to overflow #1
--- NOTE | 2025-02-27 17:47 | PHA.MEDREC ---
Pharmacy Consult ? Medication Reconciliation Pharmacy has completed the medication reconciliation.Med rec complete. Updated with list from [place]
[2025-02-27 20:52] VITALS: BP 189/76; PULSE 50; RESP 16; TEMP 37.2; O2SAT 99
[2025-02-27 20:58] LABS: Glucose, Whole Blood 117 mg/dL (60-115)
[2025-02-27] MEDS: Divalproex Sodium ER 250 MG TAB.ER.24H 750 MG PO (22:45)
[2025-02-27 23:34] VITALS: BP 141/62; PULSE 50
[2025-02-28 06:04] VITALS: BP 112/50; PULSE 86; RESP 16; TEMP 36.1; O2SAT 97
[2025-02-28 08:44] VITALS: BP 180/79; PULSE 92
--- NOTE | 2025-02-28 09:56 | MHC.CM.ED ---
Patient remains in ER overflow. [facility] is not able to offer a bed because of patient's behavior while at their facility. [facility] Met with patient to discuss realistic expectations. T/W patient explained placement is going to be difficult because of his past behaviors. Patient stated sometimes I get mad and I yell. T/W explained healthcare workers will not and do not have to accept this type of behavior. Patient verbalizes understanding and is aware that placement options will be limited due to this behavior. Continue to monitor for d/c needs.
--- NOTE | 2025-02-28 12:15 | PC.NURSE ---
patient complaining of 10/10 generalized pain, provider was notified.
[2025-02-28 13:41] VITALS: BP 125/62; PULSE 92; RESP 18; TEMP 36.6; O2SAT 91
[2025-02-28] MEDS: oxyCODONE HCl Immed Release 5 MG TABLET PO (14:37)
[2025-02-28] MEDS: Divalproex Sodium ER 250 MG TAB.ER.24H 750 MG PO (20:00)
[2025-02-28 20:01] VITALS: BP 140/59; PULSE 60
[2025-02-28 22:00] VITALS: PULSE 66; RESP 14; TEMP 37.2; O2SAT 99
--- NOTE | 2025-03-01 02:29 | PC.NURSE ---
Assumed care of patient . A/Ox4, calm and cooperative with care. Denies pain at this time. Safety measures in place ,call amaya with in reach. Plan of care ongoing.
[2025-03-01] MEDS: Potassium Chloride Packet 20 MEQ PACKET 40 MEQ PO (09:17)
[2025-03-01 10:39] VITALS: BP 99/62; PULSE 94; RESP 20; TEMP 36.4; O2SAT 98
--- NOTE | 2025-03-01 12:55 | PC.NURSE ---
multiple discussions with pt about plan - he is in agreement and is willing to wait while CM assists with placement. Juanis HAHN aware of pt pain medication requests. At this time no changes in PRN pain medications pt ambulates with cane, wheelchair assist across unit to bathroom.
--- NOTE | 2025-03-01 13:11 | MHC.CM.ED ---
Addendum entered by Alexandra Juarez 03/01/25 14:31: Annalise Funez [facility] is able to offer a bed. Will need [facility] PASRR Level 2 and auth from [place]. Will submit for these. Original Note: Patient remains in ER overflow. [facility] is unable to offer a bed at any of their facilties[facility] Left another voicemail at [facility] to see if they have a bed available. Continue to monitor for d/c needs.
[2025-03-01 14:00] VITALS: BP 101/50; PULSE 90; RESP 20; TEMP 36.4; O2SAT 92
--- NOTE | 2025-03-01 16:18 | PC.NURSE ---
Ying Martínez porter sample case from [facility] phone number [phone]
[2025-03-01 19:45] VITALS: BP 101/50; PULSE 90
[2025-03-01] MEDS: Divalproex Sodium ER 250 MG TAB.ER.24H 750 MG PO (19:45)
[2025-03-01 20:35] VITALS: BP 146/69; PULSE 61; RESP 16; TEMP 36.4; O2SAT 97
--- NOTE | 2025-03-02 06:34 | MHC.EDTECH ---
Pt refusing vitals. RN aware
--- NOTE | 2025-03-02 08:33 | PC.NURSE ---
patient refuses to wear wristband, band missing at the time of media relations associate. new band printed. patient states to get out of his room and that hes not going to wear a wrist band. wrist band placed on bed rail for the time being. patient refusing to allow bed alarm to be on. sat up and ate breakfast this morning.
--- NOTE | 2025-03-02 09:55 | PC.NURSE ---
Patient resting, states he is comfortable. Repositions self. Refused bed alarm. Call amaya placed within reach, confirmed patient knows how to use it. Medicated per JUN. Patient took meds with ice water per request, tolerated well.
[2025-03-02] MEDS: Morphine Sulfate Immed Release 15 MG TABLET PO (11:36)
[2025-03-02 14:00] VITALS: BP 116/70; PULSE 97; RESP 20; TEMP 36.7; O2SAT 97
[2025-03-02 19:34] VITALS: BP 146/68; PULSE 58; RESP 18; TEMP 36.4; O2SAT 97
[2025-03-02 19:35] VITALS: PULSE 58
[2025-03-02] MEDS: Divalproex Sodium ER 250 MG TAB.ER.24H 750 MG PO (19:39)
--- NOTE | 2025-03-02 19:54 | PC.NURSE ---
Addendum entered by Maribel Carrasco RN 03/02/25 23:35: Ativan effective for patient anxiety. Patient observed calmly resting in bed with breathing even and unlabored without distress on rounds. No further complaints of chronic/neuropathic pain since initial. Original Note: Assumed care of this patient at 19:00. Patient is A&Ox4, able to state all over pain as reason for current hospitalization, though forgetful of events during conversation. Pt observed resting in bed watching tv. Breathing observed even and unlabored. No distress noted. Pt observed sitting up and MAEE, repositioning self in bed. Pt is refusing high falls measures (alarms, door opem, camera, socks) and insists on keeping his lights off and door shut, despite education on safety measures by this insurance underwriter. Pt denies chest pain, sob, n/v, and dizziness. Bed is low and locked. Pt requested evening meds and was agreeable to vitals and POC for diabetic diet/scheduled metformin administed, POC 201. Scheduled metoprolol was held per MAR parameters for HR less than 60. On administration and education of evening medications, pt refused scheduled 100mg gabapentin tid ordered in JUN and stated I take 900mg. I'm not taking the 100mg. Take it back . Medication was removed and wasted with ED dry charge process attendant witness. Of note, on insurance underwriter's review of home med list in EMR and pharmacy note of home meds reporting done with [place] med list, both list 100mg gabapentin tid. This was discussed with the patient. Pt continued to refuse scheduled gabapentin, and then requested something for anxiety. Pt also refused prn tylenol in JUN. Non-pharmacological internventions offered. Covering Provider Willem Jacobson was notified of metoprolol held and pt request for gabapentin dosage 900mg; provider presented to this pt's bedside. Provider and RN present at bedside, again discussed gabapentin with patient who continued to refuse unless dose was 900mg. No record of such dose in pt medication hx per Provider, d/w patient. Pt was agreeable to ativan ordered for anxiety per pt request. Administered with effectiveness pending. Plan of care ongoing.
[2025-03-02 20:21] LABS: Glucose, Whole Blood 201 mg/dL (60-115)
[2025-03-03 05:58] VITALS: BP 161/82; PULSE 55; RESP 19; TEMP 36.1; O2SAT 99
[2025-03-03 10:00] VITALS: BP 121/47; PULSE 53; RESP 17; TEMP 36.4; O2SAT 96
--- NOTE | 2025-03-03 13:22 | MHC.EDTECH ---
Patient walking in his room and he is a fall risk. He doesn't want the bed alarm on and nurse tried to redirect him but no success
--- NOTE | 2025-03-03 13:31 | MHC.EDTECH ---
Patient asked for yellow xxl socks. I explained to patient that we don't have yellow socks that size and he got very disrespectful. Nurse aware and gave him lara socks
--- NOTE | 2025-03-03 15:44 | MHC.CM.ED ---
Patient remains in ER. Still waiting for auth from [place] for [facility]. Anticipate patient will be here until Thursday. Continue to monitor for d/c needs.
--- NOTE | 2025-03-03 16:26 | PC.NURSE ---
Attempted to give pt 1500 gabapentin, pt refused med stating I take 900mg three times a day. Why cant those idiots get it right! I dont want this
[2025-03-03 18:00] VITALS: BP 125/63; PULSE 67; RESP 16; TEMP 36.7; O2SAT 97
[2025-03-03] MEDS: Divalproex Sodium ER 250 MG TAB.ER.24H 750 MG PO (19:43)
--- NOTE | 2025-03-04 05:05 | PC.NURSE ---
Patient refusing AM vital signs. Patient screaming Do not come in here ever again. Get the fuck out. I don't care what you need. Patient refusing bed alarm at this time.
[2025-03-04 05:09] VITALS: RESP 18
--- NOTE | 2025-03-04 05:21 | PC.NURSE ---
Assumed care of patient at 1900 in ED OVF. Patient is alert and oriented x 3, lacks insight into situation. Room Air. Patient continues to report all over pain, however refusing gabapentin. Patient is irritable upon approach and guarded during conversation. Agitated during AM rounds, swearing at staff, refusing for staff to enter room. Patient is declining bed alarm at this time despite education.
--- NOTE | 2025-03-04 08:31 | PC.NURSE ---
Addendum entered by Rodrigo Bocanegra RN 03/04/25 09:19: [facility] today. Per [place], pt's med list cannot be faxed over until Thursday when [facility] is open/release office. Med staff will have to contact release office and fill out a release form to obtain med list. [facility] rep stated pt was on 600mg PO Sarah 3x/day but med was d/c'ed by his PCP Jan 19, 2025. MD and Pt informed. Original Note: pt refusing fall precautions despite education and hospital policy edu. pt refusing sarah stating he takes 900mg 3/day. md informed
--- NOTE | 2025-03-04 13:33 | MHC.EDTECH ---
attempted to apply fall risk band, patient stated band on bed. RN was made aware of fall risk band not on patient.
[2025-03-04 19:34] VITALS: BP 149/71; PULSE 65; RESP 18; TEMP 36.9; O2SAT 98
[2025-03-04] MEDS: Divalproex Sodium ER 250 MG TAB.ER.24H 750 MG PO (19:55)
[2025-03-05 14:00] VITALS: BP 157/57; PULSE 60; RESP 18; TEMP 36.7; O2SAT 97
[2025-03-05 18:48] VITALS: BP 158/74; PULSE 64; RESP 18; TEMP 36.9; O2SAT 98
[2025-03-05] MEDS: Divalproex Sodium ER 250 MG TAB.ER.24H 750 MG PO (19:31)
--- NOTE | 2025-03-06 05:58 | MHC.EDTECH ---
during 11pm shift report it was passed on that patient does not want vital signs done during the night or morning. He will ring when he needs something otherwise stay out of my room . around 420 patient did ring call amaya with the request for water , ice and socks which was all provided with the request also of loudly knocking prior to entering his room.
--- NOTE | 2025-03-06 06:07 | PC.NURSE ---
Assumed care of patient at 1900. Patient is A+O x 3, irritable upon approach. Demanding at times, needing frequent redirection. He is refusing bed alarm in his room despite education on fall precautions. Reports 10/10 pain all over, continues to refuse gabapentin. Once PM medications were administered, patient requested that no one enter his room, unless he rang. Refusing all vital sign checks. Patient rang for assistance around 0420, requesting water, towels and socks. Patient then proceeded to request multiple pairs of pants and and as many pairs of socks that he could get because he is leaving to go to [place] soon. This marine underwriter told patient to follow up with CM in morning.
[2025-03-06 08:00] VITALS: BP 144/74; PULSE 57; RESP 16; TEMP 36.4; O2SAT 95
[2025-03-06 08:10] VITALS: BP 158/74
[2025-03-06 08:11] VITALS: BP 158/74; PULSE 64
--- NOTE | 2025-03-06 10:42 | PC.NURSE ---
Noticed patients K-3.1 Patient c/o muscle cramps all over. Patient is on lasix notified Ila HAHN. Patient has been refusing everything not sure if Potassium was ever ordered.
[2025-03-06] MEDS: Potassium Chloride ER 20 MEQ TAB.ER.PRT 40 MEQ PO (10:48)
--- NOTE | 2025-03-06 14:51 | MHC.CM.ED ---
Addendum entered by Alexandra Juarez 03/06/25 16:04: [facility] booked for 03/07 at 9am. Med [facility] with chart. Patient, Sanjana RN and Ila HAHN aware. Original Note: Patient remains in ER overflow. Annalise Montiel Allen has obtained auth from the [place]. Cynthia from OR arranging BLS transport. Patient aware. Continue to monitor for d/c needs.
--- NOTE | 2025-03-06 18:54 | PC.NURSE ---
Patient does not need lab work. I tried to cancel order per Eliecer HAHN it was not needed.
--- NOTE | 2025-03-06 18:55 | PC.NURSE ---
Patient does not want to be bothered unless he rings the amaya and calls for us.
[2025-03-06 20:18] VITALS: BP 158/74; PULSE 64
[2025-03-06] MEDS: Divalproex Sodium ER 250 MG TAB.ER.24H 750 MG PO (20:18)
--- NOTE | 2025-03-06 20:37 | MHC.EDTECH ---
Patient given crackers and fresh water, patient refused vitals
--- NOTE | 2025-03-07 00:30 | PC.NURSE ---
pt refusing am vitals.
[2025-03-07 06:00] VITALS: BP 132/64; PULSE 60; RESP 16; TEMP 36.1; O2SAT 96
[2025-03-07 07:50] VITALS: BP 132/64
[2025-03-07 07:51] VITALS: BP 132/64; PULSE 60
--- NOTE | 2025-03-07 09:05 | PC.NURSE ---
patient a&ox3, vss, rr equal/non labored, ambulatory with cane/steady gait, pt to discharge to [facility] today in [place]- report given to Marley at the facility. pt awaiting ambulance discharge, call amaya within reach, plan of care ongoing.
[2025-03-07 09:33] VITALS: BP 132/64; PULSE 60; RESP 16; TEMP 36.8; O2SAT 96
--- NOTE | 2025-03-07 16:42 | PC.NURSE ---
[facility] just came to get the box of belongings that where left behind to transport to the patient
== END 2025-03-07 09:35 | disposition other institution (70) ==
PROVIDERS: Emergency Provider Emergency Medicine; PCP Internal Medicine
DX: E11.40 Type 2 diabetes mellitus with diabetic neuropathy, unspecified (principal); F39 Unspecified mood [affective] disorder; E87.6 Hypokalemia; I11.0 Hypertensive heart disease with heart failure; I50.32 Chronic diastolic (congestive) heart failure; I25.10 Atherosclerotic heart disease of native coronary artery without angina pectoris; Z59.02 Unsheltered homelessness; Z03.818 Encounter for observation for suspected exposure to other biological agents ruled out
CPT/HCPCS: 36415; 80048; 80076; 80307; 81001; 82550; 82947; 83690; 83735; 84443; 84484; 85025; 86140; 87637; 93005; 97162; 99285

== ENCOUNTER → 2025-02-27 12:08 | Outpatient (BNV) | payer MEDICARE, SELFPAY | PROVIDERS: Emergency Provider Emergency Medicine; PCP Internal Medicine; Visit Provider Internal Medicine Cardiovascular Disease | DX: R00.1 Bradycardia, unspecified (principal) | CPT/HCPCS: 93010 ==